=== PATIENT | female | born 1950 | race Caucasian/White ===

== ENCOUNTER 2020-05-24 15:04 | Outpatient (CLI) | payer OTHER, SELFPAY ==
--- NOTE | ~2020-05-24 | CT_ITS ---
EXAMINATION: CT sinus wo con DATE: 05/24/2020 15:30 INDICATION: Chronic sinusitis TECHNIQUE: Computed tomography (CT) of the paranasal sinuses was performed without contrast. Iterativ e reconstruction technique was employed. Exam dose: 282.50 mGy-cm total exam DLP. COMPARISON: 10/13/2011 CT sinuses FINDINGS: There is postoperative change including bilateral nasal antral windows and resection of the uncinate processes and bilateral ethmoidectomies. There is focal areas of mild bilateral frontal mucoperiosteal soft tissue thickening. There is severe mucoperiosteal thickening of both maxillary sinuses. There is moderately severe mucop eriosteal the right sphenoid sinus and mild patchy mucoperiosteal thickening of the left sphenoid sin us. The mastoid air cells are normally developed and aerated. Middle and inner ear apparatus appear unrem arkable. IMPRESSION: Bilateral nasal antral windows and bilateral ethmoidectomies Severe bilateral maxillary sinusitis, moderately severe right sphenoid sinus; mild bilateral frontal and left sphenoid sinusitis Reviewed, dictated and finalized at Location A. Reviewed, dictated and finalized at location A. IMPRESSION: Bilateral nasal antral windows and bilateral ethmoidectomies Severe bilateral maxillary sinusitis, moderately severe right sphenoid sinus; m ild bilateral frontal and left sphenoid sinusitis
== END 2020-05-24 15:05 | disposition home or self-care (01) ==
PROVIDERS: PCP Family Medicine; Visit Provider Family Medicine
DX: J32.9 Chronic sinusitis, unspecified (principal)
CPT/HCPCS: 70486

== ENCOUNTER 2021-04-03 09:11 | Outpatient (CLI) | payer OTHER, SELFPAY ==
--- NOTE | ~2021-04-03 | US_ITS ---
EXAMINATION: US venous doppler UE RT DATE: 04/03/2021 10:01 INDICATION: Right upper extremity pain TECHNIQUE: Grayscale ultrasound images without and with compression and Doppler ultrasound images of the right upper extremity veins were obtained. COMPARISON: None. FINDINGS: The right internal jugular vein, subclavian vein, axillary vein, brachial veins, basilic vein, cephal ic vein, radial vein, and ulnar vein are patent. IMPRESSION: 1. No evidence of deep venous thrombosis. Reviewed, dictated and finalized at location A.
--- NOTE | ~2021-04-03 | XR_ITS ---
EXAMINATION: XR wrist RT 2V EXAM DATE: 04/03/2021 09:36 INDICATION: M25.539 - Pain in unspecified wrist. History rheumatoid arthritis. TECHNIQUE: Frontal and lateral projections of the right wrist. Correlation is made to right forearm 04/18/2019. FINDINGS: Interval development of ulnar styloid erosion. Lunate erosion unchanged. There is moderate triscaphe and severe 1st carpometacarpal joint arthritis. Tiny erosion at the base of the 5th metaca rpal bone. Appearance to these erosions could indicate rheumatoid as underlying etiology. Scapholunat e joint space is maintained. Mild arthritis at the radioscaphoid articulation. Triangular fibrocartilage calcification. Chondrocalcinosis can be an age related finding, but with ot her possible etiologies including CPPD, parathyroid disorders, hemochromatosis, gout. There are no ac cantwell fractures identified. IMPRESSION: 1. Scattered erosions could be rheumatoid related etiology. 2. 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 3. Chondrocalcinosis. Reviewed, dictated and finalized at location B.
== END 2021-04-03 09:12 | disposition home or self-care (01) ==
PROVIDERS: PCP Family Medicine; Referring Provider Internal Medicine; Visit Provider Nurse Practitioner Family
DX: Z86.72 Personal history of thrombophlebitis (principal); M19.031 Primary osteoarthritis, right wrist
CPT/HCPCS: 73100; 93971

== ENCOUNTER → 2021-11-11 12:04 | Outpatient (CLI) | payer OTHER, SELFPAY ==
--- NOTE | ~2021-11-11 | XR_ITS ---
EXAMINATION: XR heel LT min 2V DATE: 11/11/2021 12:31 INDICATION: Left heel pain. TECHNIQUE: 2 views of left calcaneus were obtained. COMPARISON: Left foot radiographs 07/15/2019 FINDINGS: Bone alignment is normal. No fracture. There is mild midfoot osteoarthritis. There are enth esophytes at the posterior and plantar aspects of calcaneal tuberosity. IMPRESSION: 1. No fracture. Reviewed, dictated and finalized at location A. TANNER IMPRESSION: 1. No fracture.
--- NOTE | ~2021-11-11 | XR_ITS ---
XR lumbar spine 2-3V 11/11/2021 12:31 Indication: Low back pain Procedure: 3 views lumbar spine Comparison: No prior studies for comparison. Findings: There are spinal fusion changes at L2-S1. There are laminectomy changes at these levels. Pe dicle screws appear to be intact. There is lateral bone graft mass at the fusion levels. Sacral alex en are symmetric. There is levoscoliosis. Osteopenia. No acute fracture or traumatic malalignment. Impression: 1: No acute abnormality of the lumbar spine. 2: Moderate lumbar spondylosis with fusion at L2-S1 and levoscoliosis. Reviewed, dictated and finalized at location A. ER AISLE CASHIER Impression: 1: No acute abnormality of the lumbar spine. 2: Moderate lumbar spondylosis with fusion at L2-S1 and levoscoliosis.
== END ==
PROVIDERS: PCP Family Medicine; Visit Provider Nurse Practitioner Family
DX: M54.50 Low back pain, unspecified (principal); M79.672 Pain in left foot; M47.896 Other spondylosis, lumbar region; Z98.1 Arthrodesis status
CPT/HCPCS: 72100; 73650

== ENCOUNTER 2022-01-16 14:09 | Emergency (ER) | payer OTHER, SELFPAY ==
--- NOTE | ~2022-01-16 | XR_ITS ---
EXAMINATION: XR tibia fibula LT 2V INDICATION: Left leg pain TECHNIQUE: Two views of the left leg are obtained. COMPARISON: None available FINDINGS: Bone alignment is normal. There is no fracture. There are changes of total knee arthroplast y. Anterior soft tissue swelling is seen over the proximal leg. Calcified atherosclerosis is noted. IMPRESSION: 1. Anterior soft tissue swelling of the leg without acute osseous abnormality. Reviewed, dictated and finalized at location A. [employer]
[2022-01-16 14:15] VITALS: BP 136/77; PULSE 91; RESP 16; TEMP 36.8; O2SAT 97
--- NOTE | 2022-01-16 14:55 | ED.SKABFB ---
HPI - Skin/Abscess/Foreign Bdy General Chief complaint: Extremity Injury, Lower Stated complaint: FALL/L LEG INJURY Time Seen by Provider: 01/16/22 14:28 Source: patient and RN notes reviewed Mode of arrival: ambulatory Limitations: no limitations History of Present Illness HPI narrative: Patient presents today complaining of left lower leg injury and lump to her lower leg after falling 2 weeks ago and striking her leg. States the area is painful and she has radiation of the pain down to her ankle. Denies numbness or tingling. She has tried ice for pain with some relief. Pain increases with touching. Related Data Home Medications Medication Instructions Recorded Confirmed bimatoprost 0.01 % eye drops 1 drop EACH EYE QPM 10/17/19 12/19/21 fluticasone 250 mcg-salmeterol 50 1 inhalation INHALATION BID 10/17/19 12/19/21 mcg/dose blistr powdr for inhalation multivitamin 1 cap PO DAILY 04/08/20 12/19/21 cholecalciferol (vitamin D3) 125 125 mcg PO DAILY 12/30/20 12/19/21 mcg (5,000 unit) capsule tramadol 50 mg tablet 50 mg PO Q6H PRN 04/01/21 12/19/21 metoprolol tartrate 50 mg tablet 50 mg PO BID 11/11/21 12/19/21 acetaminophen 500 mg tablet 1,000 mg PO BID PRN tablet 12/19/21 12/19/21 prednisone 10 mg tablet 5 mg PO DAILY tablet 12/19/21 12/19/21 Allergies Allergy/AdvReac Type Severity Reaction Status Date / Time hydrochlorothiazide Allergy Unknown Nausea Verified 12/19/21 10:06 Penicillins Allergy Unknown Tongue Verified 12/19/21 10:06 swelling triamterene Allergy Unknown Nausea Verified 12/19/21 10:06 Review of Systems Review of Systems: CONSTITUTIONAL: Denies body aches, fever, chills, or sweats. EYES: Denies visual changes, redness, or discharge. ENT: Denies rhinorrhea, congestion, sore throat, or otalgia. CARDIOVASCULAR: Denies chest pain, palpitations, or edema. RESPIRATORY: Denies cough or dyspnea. GASTROINTESTINAL: Denies abdominal pain, nausea, vomiting, or diarrhea. GENITOURINARY: Denies dysuria or hematuria. SKIN: Denies rash, itching, or wounds.+ Lump to left lower leg MUSCULOSKELETAL: Denies back pain, joint pain, or myalgia. NEUROLOGIC: Denies headache, numbness, tingling, or weakness. PSYCH: Denies depression or anxiety. [facility] Past Medical History Medical History Asthma, cough variant Atrial fibrillation Essential (primary) hypertension GERD without esophagitis Glaucoma both eyes, open angle Hyperlipidemia Left carpal tunnel syndrome Lumbar disc disease with radiculopathy Neuropathy Pulmonary nodule less than 6 cm determined by computed tomography of lung Rheumatoid arthritis Seizure disorder Surgical History Surgical History History of bilateral knee replacement History of left hip replacement (~06/2020) S/P cervical spinal fusion Family History Family History Father Hypertension, Onset Age: 76 Family history of heart disease in male family member before age 55, Onset Age: 76 Patient's father is , Onset Age: 76 Mother Hypertension, Onset Age: 82 Family history of renal failure, Onset Age: 82 Family history of heart disease in male family member before age 55, Onset Age: 82 Patient's mother is , Onset Age: 82 Sibling Hypertension Asthma Family history of diabetes mellitus in first degree relative Family history of heart disease in male family member before age 55 Grandparent Hypertension Cerebrovascular accident Family history of heart disease in male family member before age 55 Diabetes mellitus Other Olecranon bursitis of right elbow Social History Social History Smoking status: Never smoker Alcohol intake: current Comments At time of signature, I have reviewed a
== END 2022-01-16 15:02 | disposition home or self-care (01) ==
PROVIDERS: Emergency Provider Nurse Practitioner; PCP Family Medicine
DX: S80.12XA Contusion of left lower leg, initial encounter (principal); W19.XXXA Unspecified fall, initial encounter; J45.909 Unspecified asthma, uncomplicated; I48.91 Unspecified atrial fibrillation; I10 Essential (primary) hypertension; K21.9 Gastro-esophageal reflux disease without esophagitis; H40.9 Unspecified glaucoma; M51.36 Other intervertebral disc degeneration, lumbar region; M06.9 Rheumatoid arthritis, unspecified; G62.9 Polyneuropathy, unspecified; Z96.653 Presence of artificial knee joint, bilateral; Z96.641 Presence of right artificial hip joint
CPT/HCPCS: 73590; 99213; G0463

== ENCOUNTER → 2022-05-11 13:13 | Outpatient (CLI) | payer OTHER, SELFPAY ==
--- NOTE | ~2022-05-11 | DEXA_ITS ---
Bone Density Report Name: BENNETT CHUNG Age: 72 Sex: Female Ethnicity: White Date of : 1950 Indication: postmenopausal; screening for osteoporosis; height loss; history of glucocorticoids; seizure disorder; asthma or emphysema; rheumatoid arthritis; Referring Provider: Hallie Rand Study: Bone densitometry was performed. Exam Date: May 11, 2022 Accession number: [id number] Bone Density: Region BMD T-score Z-score Classification Femoral Neck (Right) 0.890 0.4 2.3 Normal Total Hip (Right) 0.999 0.5 2.1 Normal World Health Organization criteria for BMD impression classify patients as: Normal (T-score at or above -1.0), Osteopenia (T-score between -1.0 and -2.5), or Osteoporosis (T-score at or below -2.5). 10-year Fracture Risk: FRAX not reported because: All T-scores for Spine Total, Hip Total, Femoral Neck at or above -1.0 Previous Exams: Region Exam Age BMD T-score BMD Change BMD Change Date g/cm2 vs Baseline vs Previous Total Hip(Right) 05/11/2022 72 0.999 0.5 -0.049* -0.049* 07/22/2018 68 1.049 0.9 *Denotes significance at 95% confidence level, LSC for Total Hip = 0.027 g/cm2 Clinical Information Provided by Patient: Has taken Glucocorticoids Has rheumatoid arthritis Has used the following medications: Vitamin D, MTV Has the following medical conditions: Any Seizure Disorders, Asthma or Emphysema Patient maximum height was 66.0 Menopause Age: 49 No regular weight bearing exercise Drinks caffeinated beverages Onset of menses at age 11 Number of children 3 Impression: The patient has normal bone mass. The patient has risk factors, including: history of glucocorticoid therapy. The BMD for the Total Hip(Right) decreased, changing by -0.049 since the last DXA exam. Discussion: LOW RISK OF FRACTURE; BONE DENSITY IS WELL ABOVE THE MINIMUM DESIRABLE LEVEL AND ABOVE AVERAGE FOR AGE AND SEX AT ALL SKELETAL SITES TESTED. This person's bone density is above expected limits for age and sex. This is rarely clinically significant, but should be pursued if there are significant musculoskeletal complaints. The patient should follow a healthful lifestyle (good nutrition with adequate calcium and vitamin D, and appropriate weight-bearing exercise). Follow-Up: Consider repeating this study in 3 to 4 years to reassess this patient's status, or sooner if there is some new clinical indication. Reported by: MISA on 05/11/2022 1:41:00 PM. Reviewed, dictated and finalized at location AJessica TORRES
--- NOTE | ~2022-05-11 | MM_ITS ---
EXAMINATION: MM screening julisa BI w gallo HISTORY: Screening TECHNIQUE: Craniocaudal and mediolateral oblique 3-D tomosynthesis images were obtained and synthetic 2-D images were generated. CAD analysis was submitted and interpreted. COMPARISON: Comparison to multiple prior studies sequentially, with oldest reviewed study dated 05/2013. BREAST PARENCHYMAL COMPOSITION: The breasts are heterogenously dense, which may obscure small masses FINDINGS: There is no evidence of suspicious mass, calcification, or architectural distortion to sugg est malignancy in either breast. There has been no suspicious interval change. IMPRESSION: 1. No mammographic evidence of malignancy. 2. Recommend routine screening mammography in one year. BI-RADS Category 1: Negative Reviewed, dictated and finalized at location A.
== END ==
PROVIDERS: PCP Family Medicine; Visit Provider Nurse Practitioner Family
DX: Z12.31 Encounter for screening mammogram for malignant neoplasm of breast (principal); Z78.0 Asymptomatic menopausal state
CPT/HCPCS: 77063; 77067; 77080

== ENCOUNTER 2022-08-07 12:54 | Emergency (ER) | payer OTHER, SELFPAY ==
--- NOTE | 2022-08-07 12:59 | ED.UPPEXIN ---
HPI - Extremity Injury (Upper) General Chief Complaint: Extremity Injury, Upper Stated Complaint: left hand injury Time Seen by Provider: 08/07/22 12:59 Source: patient and RN notes reviewed History of Present Illness HPI narrative: Patient is a 72-year-old female who presents the urgent care with complaints of left hand pain. Patient states that the pain only occurs when she grasps and sometimes feels a sharp shooting pain through the thumb. Patient denies of any known injury or fall to the wrist. States that it started last night when she grabbed a handrail at a volleyball game. Patient has been taking Tylenol. Patient has chronic history of rheumatoid arthritis and does take turmeric injections with her last one being past Wednesday. No other acute complaints. No acute distress noted. Patient aware of the plan of care. Some parts of this dictation were generated by voice recognition software and may contain typographical and/or grammatical inaccuracies. Related Data Home Medications Medication Instructions Recorded Confirmed multivitamin 1 cap PO DAILY 04/08/20 08/07/22 cholecalciferol (vitamin D3) 125 125 mcg PO DAILY 12/30/20 08/07/22 mcg (5,000 unit) capsule tramadol 50 mg tablet 50 mg PO Q6H PRN Pain (Scale Score 04/01/21 08/07/22 4-6) metoprolol tartrate 50 mg tablet 50 mg PO BID 11/11/21 08/07/22 acetaminophen 500 mg tablet 1,000 mg PO BID PRN Pain (Scale 12/19/21 08/07/22 (Tylenol Extra Strength) Score 1-3) leflunomide 20 mg tablet 20 mg PO .QOD 02/12/22 08/07/22 montelukast 10 mg tablet 10 mg PO QHS 02/12/22 08/07/22 adalimumab 40 mg/0.8 mL 40 mg subcut [id number] 08/07/22 08/07/22 subcutaneous pen kit (Humira Pen) fluticasone 250 mcg-salmeterol 50 2 inh inhalation PRN PRN Shortness 08/07/22 08/07/22 mcg/dose blistr powdr for Of Breath inhalation (Wixela Inhub) prednisone 5 mg tablet 10 mg PO BID 08/07/22 08/07/22 Allergies Allergy/AdvReac Type Severity Reaction Status Date / Time hydrochlorothiazide Allergy Unknown Nausea Verified 08/07/22 12:57 Penicillins Allergy Unknown Tongue Verified 08/07/22 12:57 swelling triamterene Allergy Unknown Nausea Verified 08/07/22 12:57 Review of Systems Review of Systems: CONSTITUTIONAL: Denies fever, chills, or sweats. EYES: Denies visual changes, redness, or discharge. ENT: Denies rhinorrhea, congestion, sore throat, or otalgia. CARDIOVASCULAR: Denies chest pain, palpitations, or edema. RESPIRATORY: Denies cough or dyspnea. GASTROINTESTINAL: Denies abdominal pain, nausea, vomiting, or diarrhea. GENITOURINARY: Denies dysuria or hematuria. SKIN: Denies rash or itching. MUSCULOSKELETAL: Reports of left wrist pain NEUROLOGIC: Denies headache, numbness, or weakness. All other systems reviewed are negative, except as documented in HPI. [facility] Past Medical History Medical History (Updated 08/07/22 @ 13:18 by CONRADO Gil) Asthma, cough variant Atrial fibrillation Essential (primary) hypertension GERD without esophagitis Glaucoma both eyes, open angle Hyperlipidemia Left carpal tunnel syndrome Lumbar disc disease with radiculopathy Neuropathy Psoriasis Pulmonary nodule less than 6 cm determined by computed tomography of lung Rheumatoid arthritis Seizure disorder Surgical History Surgical History History of ankle surgery History of bilateral knee replacement History of left hip replacement (~06/2020) S/P cervical spinal fusion Family History Family History Father Hypertension, Onset Age: 76 Family history of heart disease in male family member before age 55, Onset Age: 76 Patient's father is , Onset Age: 76 Mother Hypertension, Onset Age: 82 Family history of renal failure, Onset Age: 82 Family history of heart disease in male family member before age 55, Onset Age: 82 Patient's mother i
[2022-08-07 13:06] VITALS: BP 127/89; PULSE 78; RESP 16; TEMP 37.1; O2SAT 98
[2022-08-07 13:13] VITALS: BP 127/89; PULSE 78; RESP 16; TEMP 37.1; O2SAT 98
== END 2022-08-07 13:22 | disposition home or self-care (01) ==
PROVIDERS: Emergency Provider Nurse Practitioner Family; PCP Family Medicine
DX: M25.532 Pain in left wrist (principal); M06.9 Rheumatoid arthritis, unspecified; I48.91 Unspecified atrial fibrillation; I10 Essential (primary) hypertension; K21.9 Gastro-esophageal reflux disease without esophagitis; R78.5 Finding of other psychotropic drug in blood; G62.9 Polyneuropathy, unspecified; Z96.653 Presence of artificial knee joint, bilateral; Z96.642 Presence of left artificial hip joint
CPT/HCPCS: 99213; G0463

== ENCOUNTER → 2022-08-10 11:47 | Outpatient (CLI) | payer OTHER, SELFPAY ==
--- NOTE | ~2022-08-10 | XR_ITS ---
EXAM: XR hand LT min 3V DATE: 08/10/2022 11:59 HISTORY: M79.645 - Pain in left finger(s) Left thumb carpal tunnel . COMPARISON: None available. FINDINGS: Decreased mineralization. No fracture or dislocation. No lytic or blastic lesion. Chondroc alcinosis in multiple joints. Severe narrowing and osteophytosis at the trapeziometacarpal joint. Mil d-moderate narrowing and osteophytosis at all interphalangeal joints. Radiocarpal subchondral cysts. No erosion or periosteal change. Soft tissues within normal limits. IMPRESSION: Severe arthritic change at the left trapeziometacarpal joint. Moderate arthritic changes in the thumb and finger joints. Chondrocalcinosis, as can be seen with calcium pyrophosphate depositi on disorder. Reviewed, dictated and finalized at location K. IMPRESSION: Severe arthritic change at the left trapeziometacarpal joint. Moder ate arthritic changes in the thumb and finger joints. Chondrocalcinosis, as can be seen with calcium pyrophosphate deposition disorder.
== END ==
PROVIDERS: PCP Nurse Practitioner Family; Visit Provider Nurse Practitioner Family
DX: M19.042 Primary osteoarthritis, left hand (principal)
CPT/HCPCS: 73130

== ENCOUNTER 2023-06-28 13:39 | Outpatient (CLI) | payer OTHER, SELFPAY ==
--- NOTE | ~2023-06-28 | US_ITS ---
EXAMINATION: US venous doppler UE RT DATE: 06/28/2023 14:38 INDICATION: Right upper limb pain. TECHNIQUE: Grayscale ultrasound images without and with compression and Doppler ultrasound images of the right upper extremity veins were obtained. COMPARISON: Ultrasound 04/03/2021 FINDINGS: The visualized portions of the right internal jugular vein, subclavian vein, axillary vein, brachial veins, basilic vein, radial vein, and ulnar vein are patent. There is a peripherally inserted central venous catheter in the right cephalic vein. IMPRESSION: 1. No deep venous thrombosis. Reviewed, dictated and finalized at location A.
== END 2023-06-28 13:40 | disposition home or self-care (01) ==
PROVIDERS: PCP Family Medicine
DX: M79.601 Pain in right arm (principal)
CPT/HCPCS: 93971

== ENCOUNTER 2023-10-14 17:37 | Emergency (ER) | payer OTHER, SELFPAY ==
[2023-10-14] VITALS (19 sets, daily range): BP systolic 97–140; BP diastolic 50–73; PULSE 62–142; RESP 12–20; O2SAT 96–98
[2023-10-14 17:54] LABS: Basophils Absolute Auto 0.1 K/mm3 (0.0-0.1); Basophils Percent Auto 0.5 % (0.2-1.2); Eosinophils Absolute Auto 0.1 K/mm3 (0-0.3); Eosinophils Percent Auto 0.4 % (0-4.4); Hematocrit 37.5 % (37.0-47.0); Hemoglobin 11.9 g/dL (12.0-15.0); Immature Granulocyte Absolute 0.07 K/mm3 (0.00-0.031); Immature Granulocyte Percent A 0.6 % (0-0.5); Lymphocytes Absolute Auto 1.26 K/mm3 (0.9-3.2); Mean Corpuscular HGB Conc 31.7 g/dl (32-36); Mean Corpuscular Hemoglobin 28.1 pg (26-34); Mean Corpuscular Volume 88.7 fl (80-100); Mean Platelet Volume 8.8 fl (7.4-10.4); Monocytes Absolute Auto 1.1 K/mm3 (0.1-0.6); Monocytes Percent Auto 8.7 % (2.6-8.5); Neutrophils Absolute Auto 10.1 K/mm3 (1.3-6.7); Neutrophils Percent Auto 79.8 % (45.5-73.1); Platelet Count Result 295 k/mm3 (150-375); Red Blood Count 4.23 M/mm3 (4.2-5.4); Red Cell Distribution Width 18.6 % (11.5-14.5); White Blood Count 12.7 K/mm3 (4.5-10.0)
[2023-10-14 18:08] LABS: Alanine Aminotransferase 15 U/L (6-35); Albumin Level 3.3 g/dL (3.5-5.1); Alkaline Phosphatase 266 U/L (38-126); Anion Gap 11 mmol/L (8-16); Aspartate Amino Transferase 28 U/L (14-36); Bilirubin,Total 0.6 mg/dL (0.2-1.3); Blood Urea Nitrogen 27 mg/dL (7-17); Calcium 9.1 mg/dL (8.4-10.2); Carbon Dioxide 24 mmol/L (22-30); Chloride 101 mmol/L (98-107); Estimated CRCL calculation 62 ml/min; Estimated Glomerular Filt Rate > 60; Glucose 110 mg/dL (65-110); Lipase 42 U/L (23-300); Sodium 136 mmol/L (137-145)
[2023-10-14] MEDS: SODIUM CHLORIDE 0.9% IV 2,000 ML 999 ML IV CONT (19:53)
[2023-10-14] MEDS: ONDANSETRON INJ 4 MG/2 ML VIAL IV PUSH (19:53)
--- NOTE | 2023-10-14 20:26 | ED.NAVMDI ---
HPI - Nausea/Vomiting/Diarrhea General Chief complaint: Nausea/Vomiting/Diarrhea Stated complaint: N/V weakness yest Time Seen by Provider: 10/14/23 19:12 History of Present Illness HPI Narrative: This is a 73-year-old female, with history of back surgeries, 1 month and 3 weeks ago, who presents emergency department with multiple episodes of diarrhea and nonbloody vomiting with lightheadedness. Patient past day and a half, she has had nonbloody vomiting and diarrhea. This is associated with nausea, though no fevers or known sick contacts. Today she felt lightheaded, though denies chest pain or shortness of breath. She states she is overall recovering well from her back surgery. Related Data Home Medications Medication Instructions Recorded Confirmed multivitamin 1 cap PO DAILY 04/08/20 10/06/23 metoprolol tartrate 50 mg tablet 50 mg PO BID 11/11/21 10/06/23 fluticasone 250 mcg-salmeterol 50 2 inh inhalation PRN PRN Shortness 08/07/22 10/06/23 mcg/dose blistr powdr for Of Breath inhalation (Wixela Inhub) prednisone 5 mg tablet 10 mg PO BID PRN Pain 08/07/22 10/06/23 diphenhydramine HCl 25 mg tablet 25 mg PO QHS PRN 12/01/22 10/06/23 (Benadryl Allergy) acetaminophen 325 mg capsule 325 mg PO Q6H PRN 07/05/23 10/06/23 (Tylenol) bimatoprost 0.01 % eye drops drp EACH EYE QPM 07/05/23 10/06/23 (Lumigan) oxycodone 10 mg tablet mg PO PRN 08/23/23 10/06/23 baclofen 5 mg tablet mg PO 10/06/23 10/06/23 cholecalciferol (vitamin D3) 25 PO 10/06/23 10/06/23 mcg (1,000 unit) tablet cyclobenzaprine 10 mg tablet mg PO 10/06/23 10/06/23 hydroxyzine HCl 25 mg tablet mg PO 10/06/23 10/06/23 Allergies Allergy/AdvReac Type Severity Reaction Status Date / Time hydrochlorothiazide Allergy Unknown Nausea Verified 10/14/23 17:45 Penicillins Allergy Unknown Tongue Verified 10/14/23 17:45 swelling triamterene Allergy Unknown Nausea Verified 10/14/23 17:45 Review of Systems Review of Systems: CONSTITUTIONAL: Denies fever, chills, or sweats. CARDIOVASCULAR: Denies chest pain, palpitations, or edema. RESPIRATORY: Denies cough or dyspnea. GASTROINTESTINAL: Nonbloody vomiting and diarrhea, nausea denies abdominal pain GENITOURINARY: Denies dysuria or hematuria. SKIN: Denies rash or itching. MUSCULOSKELETAL: Denies back pain, joint pain, or myalgia. NEUROLOGIC: Denies headache, numbness, dizziness, or weakness. PSYCHIATRIC: Denies anxiety or depression. [facility] Past Medical History Medical History Asthma, cough variant Atrial fibrillation Essential (primary) hypertension GERD without esophagitis Glaucoma both eyes, open angle Hyperlipidemia Left carpal tunnel syndrome Lumbar disc disease with radiculopathy Neuropathy Psoriasis Pulmonary nodule less than 6 cm determined by computed tomography of lung Rheumatoid arthritis Seizure disorder Surgical follow-up care Surgical History Surgical History H/O spinal fusion C2-T2 posterior instrumented spinal fusion; C3 posterior column osteotomy; C5 &C6 Laminectomy 05/04/23 [facility] History of ankle surgery History of bilateral knee replacement History of left hip replacement (~06/2020) S/P cervical spinal fusion Family History Family History Father Hypertension, Onset Age: 76 Family history of heart disease in male family member before age 55, Onset Age: 76 Patient's father is , Onset Age: 76 Mother Hypertension, Onset Age: 82 Family history of renal failure, Onset Age: 82 Family history of heart disease in male family member before age 55, Onset Age: 82 Patient's mother is , Onset Age: 82 Sibling Hypertension Asthma Family history of diabetes mellitus in first degree relative Family history of heart disease in male family member
[2023-10-14 22:10] LABS: Appearance Urine Clear (Clear); Bacteria Urine None Seen /hpf; Bilirubin Urine Negative (Negative); Blood Urine 1+ (Negative); Color Urine Yellow (Yellow); Glucose Urine UA Negative (Negative); Ketones Urine 1+ mg/dL (Negative); Leukocyte Esterase Ur Negative LEU/UL (Negative); Nitrate Urine Negative (Negative); Non Pathogenic Casts 0-2; Protein Urine Trace mg/dL (Negative); Squamous Epithelial Cell Urine None seen /hpf (Few); Urobilinogen Urine 0.2 mg/dL (<2.0); WBC Urine 0-5 /hpf; pH Urine 5.5 (5.0-9.0)
[2023-10-14 22:14] LABS: Add Urine Microscopic? YES
--- NOTE | 2023-10-15 15:42 | PC.NURSE ---
pt had script for Zofran called in by this resume writer given verbal from dr Bee
== END 2023-10-14 23:35 | disposition home or self-care (01) ==
PROVIDERS: Emergency Medicine; Emergency Provider Preventive Medicine Aerospace Medicine; PCP Family Medicine
DX: K52.9 Noninfective gastroenteritis and colitis, unspecified (principal); J45.909 Unspecified asthma, uncomplicated; E78.5 Hyperlipidemia, unspecified; I10 Essential (primary) hypertension; I48.91 Unspecified atrial fibrillation; G40.909 Epilepsy, unspecified, not intractable, without status epilepticus; H40.9 Unspecified glaucoma; G62.9 Polyneuropathy, unspecified; M06.9 Rheumatoid arthritis, unspecified; Z98.1 Arthrodesis status; Z96.653 Presence of artificial knee joint, bilateral; Z96.642 Presence of left artificial hip joint
CPT/HCPCS: 36415; 80053; 81001; 83690; 85025; 96361; 96374; 99284; J2405; J7030

== ENCOUNTER 2023-10-19 11:32 | Observation (INO) | payer OTHER, SELFPAY ==
[2023-10-19] VITALS (36 sets, daily range): BP systolic 108–134; BP diastolic 63–90; PULSE 93–124; RESP 13–20; TEMP 36.3–36.6; O2SAT 94–100; BMI 28.3
--- NOTE | ~2023-10-19 | XR_ITS ---
EXAMINATION: XR chest 2V DATE: 10/19/2023 14:08 INDICATION: Near syncope. TECHNIQUE: Frontal and lateral views of the chest were obtained. COMPARISON: Chest 2 views 09/28/2013 FINDINGS: There is no pneumonia, pleural effusion, or pneumothorax. The heart size is normal. There a re changes of posterior fusion procedures in the cervical, thoracic, and lumbar spine. There are marks ges of anterior fusion procedures in cervical and lumbar spine. IMPRESSION: 1. No acute cardiopulmonary disease. Reviewed, dictated and finalized at location E. AULIC BULL RIVETER OPERATOR
--- NOTE | 2023-10-19 11:37 | ECG_ITS ---
Measurements Intervals [place] Rate: 99 P: 30 GA: 168 QRS: -9 QRSD: 94 T: 16 QT: 376 QTc: 483 Interpretive Statements SINUS RHYTHM FREQUENT VENTRICULAR PREMATURE COMPLEXES LOW QRS VOLTAGE IN PRECORDIAL LEADS BORDERLINE R WAVE PROGRESSION, ANTERIOR LEADS INFERIOR INFARCT, AGE INDETERMINATE BORDERLINE ST-T WAVE ABNORMALITY- HIGH LATERAL LEADS BASELINE ARTIFACT- I, III, AVR, AVL, AVF ABNORMAL ECG NO PREVIOUS ECG AVAILABLE FOR COMPARISON Electronically Signed On 10-19-2023 13:49:05 DIRECTOR SOCIAL by Scott Rae D.O.
[2023-10-19 12:01] LABS: Basophils Percent Auto 0.2 % (0.2-1.2); Eosinophils Percent Auto 0.2 % (0-4.4); Hematocrit 36.9 % (37.0-47.0); Hemoglobin 11.7 g/dL (12.0-15.0); Immature Granulocyte Absolute 0.04 K/mm3 (0.00-0.031); Immature Granulocyte Percent A 0.3 % (0-0.5); Lymphocytes Absolute Auto 1.35 K/mm3 (0.9-3.2); Lymphocytes Percent Auto 11.1 % (18.3-44.2); Mean Corpuscular HGB Conc 31.7 g/dl (32-36); Mean Corpuscular Hemoglobin 28.3 pg (26-34); Mean Corpuscular Volume 89.1 fl (80-100); Mean Platelet Volume 9.2 fl (7.4-10.4); Monocytes Percent Auto 7.9 % (2.6-8.5); Neutrophils Absolute Auto 9.8 K/mm3 (1.3-6.7); Neutrophils Percent Auto 80.3 % (45.5-73.1); Platelet Count Result 199 k/mm3 (150-375); Red Blood Count 4.14 M/mm3 (4.2-5.4); Red Cell Distribution Width 18.8 % (11.5-14.5); White Blood Count 12.2 K/mm3 (4.5-10.0)
--- NOTE | 2023-10-19 12:07 | ED.SYNCOPE ---
HPI - Syncope General Chief Complaint: Syncope Stated Complaint: near syncope Time Seen by Provider: 10/19/23 11:58 Source: patient and family History of Present Illness HPI narrative: This is a 73 year old with a history of cough variant ashtma who presents with near syncope. She presented to the emergency department last week for similar, though had previously had diarrhea. This has since resolved. She has been vomiting since last night though states only phlegm comes up. Denies hematemesis. Not on anticoagulation as she states she was told she does not have atrial fibrillation but rather has a history of PVCs. For this, she is on metoprolol but has not had to take it in several days given her blood pressure has been at holding parameters. Previously had hypertension but not lately. She notes that she becomes very weak/lightheaded with standing. She had extensive back surgery in mid August for which she was supposed to get her 66 sutures removed tomorrow in outpatient clinic. Never smoked. Mother and father had MIs but not before age 65. No previous ND, PCI/CABG, CVA/TIA, or PAD. She states her legs feel weak and she becomes dizzy. She has been ambulating with a walker since back surgery. Denies any fevers. Her near syncope only occurs with position changes (from supine to seated or seated to standing). If she is supine she has not symptoms. Denies chest pain or SOB. Robotic Technician Dr Geiger. Related Data Home Medications Medication Instructions Recorded Confirmed multivitamin 1 cap PO DAILY 04/08/20 10/19/23 fluticasone 250 mcg-salmeterol 50 1 inh inhalation BID PRN Shortness 08/07/22 10/19/23 mcg/dose blistr powdr for Of Breath inhalation (Wixela Inhub) prednisone 5 mg tablet 10 mg PO BID PRN RA exacerbation 08/07/22 10/19/23 diphenhydramine HCl 25 mg tablet 25 mg PO QHS PRN allergies 12/01/22 10/19/23 (Benadryl Allergy) acetaminophen 325 mg capsule 325 mg PO Q6H PRN RA exacerbation 07/05/23 10/19/23 (Tylenol) bimatoprost 0.01 % eye drops 1 drp EACH EYE QPM 07/05/23 10/19/23 (Lumigan) baclofen 5 mg tablet 5 mg PO HS 10/06/23 10/19/23 cholecalciferol (vitamin D3) 25 1,000 unit PO DAILY 10/06/23 10/19/23 mcg (1,000 unit) tablet cyclobenzaprine 10 mg tablet 10 mg PO Q8H PRN Muscle Spasm 10/06/23 10/19/23 hydroxyzine HCl 25 mg tablet 25 mg PO HS PRN allergies 10/06/23 10/19/23 albuterol sulfate 90 mcg/actuation 90 mcg inhalation Q6H PRN 10/19/23 10/19/23 aerosol inhaler Shortness Of Breath bisacodyl 5 mg tablet,delayed 10 mg PO DAILY PRN Constipation 10/19/23 10/19/23 release fluconazole 50 mg tablet 50 mg PO DAILY 10/19/23 10/19/23 ondansetron HCl 4 mg tablet 4 mg PO Q6H PRN Nausea And Vomiting 10/19/23 10/19/23 triamcinolone acetonide 0.1 % 1 applic topical BID PRN psoriasis 10/19/23 10/19/23 topical ointment exacerbation Allergies Allergy/AdvReac Type Severity Reaction Status Date / Time hydrochlorothiazide Allergy Unknown Nausea Verified 10/14/23 17:45 Penicillins Allergy Unknown Tongue Verified 10/14/23 17:45 swelling triamterene Allergy Unknown Nausea Verified 10/14/23 17:45 [facility] Past Medical History Medical History Asthma, cough variant Atrial fibrillation Essential (primary) hypertension GERD without esophagitis Glaucoma both eyes, open angle Hyperlipidemia Left carpal tunnel syndrome Lumbar disc disease with radiculopathy Neuropathy Psoriasis Pulmonary nodule less than 6 cm determined by computed tomography of lung Rheumatoid arthritis Seizure disorder Surgical follow-up care Surgical History Surgical History H/O spinal fusion C2-T2 posterior instrumented spinal fusion; C3 posterior column osteotomy; C5 &C6 Laminectomy 05/04/[address] [facility] History of ankle surgery History of bilateral knee replacement History of left hip replacement (~06/2020) S/P cervical spinal fusio
[2023-10-19 12:13] LABS: Alanine Aminotransferase 17 U/L (6-35); Albumin Level 3.1 g/dL (3.5-5.1); Alkaline Phosphatase 228 U/L (38-126); Anion Gap 11 mmol/L (8-16); Aspartate Amino Transferase 31 U/L (14-36); Bilirubin,Total 0.7 mg/dL (0.2-1.3); Blood Urea Nitrogen 26 mg/dL (7-17); Calcium 8.9 mg/dL (8.4-10.2); Carbon Dioxide 25 mmol/L (22-30); Chloride 100 mmol/L (98-107); Estimated CRCL calculation 63 ml/min; Estimated Glomerular Filt Rate > 60; Glucose 115 mg/dL (65-110); Potassium 3.8 mmol/L (3.4-5.0); Sodium 136 mmol/L (137-145)
[2023-10-19 12:58] LABS: Troponin I 0.448 ng/mL (0.000-0.034)
[2023-10-19 13:11] LABS: Influenza A QL RT-PCR Negative (Negative); Influenza B QL RT-PCR Negative (Negative); RSV RNA, RT-PCR Negative (Negative); SARS-CoV-2 RNA PCR Negative (Negative)
[2023-10-19] MEDS: ONDANSETRON INJ 4 MG/2 ML VIAL IV PUSH ×2 (14:08→18:35)
[2023-10-19] MEDS: ASPIRIN 81 MG CHEWABLE TABLET 324 MG PO (14:08)
[2023-10-19 15:34] LABS: Troponin I 0.318 ng/mL (0.000-0.034)
--- NOTE | 2023-10-19 16:10 | ADMGEN ---
This patient, Ivett Stephens, was admitted to IMU Room 207-01. Patient/family oriented to hospital policies and general routines including ID bracelet, bed and alarms, visiting hours, pain management, procedures, bathroom and other care routines, personal items, smoking policy, room service/diet, and visiting hours. Information on how to activate the Rapid Response Team has been discussed. Patient/Family are encouraged to report perceived risks to care and to ask questions if they do not understand what they are told or what they should do.
--- NOTE | 2023-10-19 16:43 | PC.NURSE ---
Pt has sutures to mid spine form neck to sacrum. Incision site well approximated, dry, no redness or swelling, sutures intact. Reports that sutures were to be removed 1 week ago but patient was sick and had to cancel appointment. Pt is requesting we reach out to surgeons office, Dr. Dangelo Hopper, and speak with Anahi regarding suture removal instructions. Office number is [phone]. Office is closed. Will report to oncoming shift need for follow up.
--- NOTE | 2023-10-19 17:41 | PM.IMHP ---
H&P: HPI History of Present Illness Date/Time: 10/19/23 17:41 Chief Complaint: Nausea and Pre-Syncope Narrative: 73 y/o F presents here with N/V and near syncope with PMH of asthma, AFib, HTN, GERD, psoriasis, RA, seizures, and extensive spinal surgeries (most recent on 09/10 and 09/17). Patient presents here with recurrent nausea and vomiting for the past 3-4 days, 1 episode of diarrhea than constipation. Denies change in stool, blood in stool, and LBM was today - normal consistent, volume and color. The patient was seen on 10/14 for similar symptoms. Was discharged home after rehydration and general improvement. Patient states she felt better for 2-3 days. Then had recurrent symptoms. Reports that she has been unable to eat or drink much over the last few days. States that her blood pressure has been dropping when she changes positions. Has had near syncopal episodes multiple times with 1 episode where she became briefly delirious, but has otherwise not lost consciousness. she currently denies abdominal pain or urinary symptoms such as dysuria, hematuria, frequency. +Decrease in urine OP, now going once per day v 2-3 times per day. She denies chest pain or palpitations. +Mild SOB with near-syncopal episodes that resolves without intervention, believes this may be secondary to reduced use of her Albuterol inhaler - last use yesterday x1. currently denies burning in throat, burning in chest, or regurgitation. +Increase in belching. Also reports that since surgery she has had an alteration in her taste, reports that sweet taste have been more sickly suite and majority of food/drink/water leave a foul aftertaste in her mouth. She also denies numbness or tingling in her lower extremities and has been healing well postop from recent back surgeries in Aug. Report missing follow-up due to the N/V/D and was unable to have her stitches taken out., otherwise incision has been healing well and she has no complaints. Review of Systems Review of Systems: +SOB with near syncopal episodes. +Near-syncope. +Belching. +Alteration in taste. All systems reviewed & are unremarkable except as noted in HPI and below PMFSH Past Medical History Medical History (Updated 10/19/23 @ 20:43 by Nohemi Burk APRN) Asthma, cough variant Atrial fibrillation Essential (primary) hypertension GERD without esophagitis Glaucoma both eyes, open angle Hyperlipidemia Left carpal tunnel syndrome Lumbar disc disease with radiculopathy Neuropathy Psoriasis Pulmonary nodule less than 6 cm determined by computed tomography of lung Rheumatoid arthritis Seizure disorder Surgical follow-up care Surgical History Surgical History (Updated 10/19/23 @ 20:17 by Nohemi Burk APRN) H/O spinal fusion C2-T2 posterior instrumented spinal fusion; C3 posterior column osteotomy; C5 &C6 Laminectomy 05/04/23 [facility] History of ankle surgery History of bilateral knee replacement History of left hip replacement (~06/2020) S/P cervical spinal fusion Family History Family History Father Hypertension, Onset Age: 76 Family history of heart disease in male family member before age 55, Onset Age: 76 Patient's father is , Onset Age: 76 Mother Hypertension, Onset Age: 82 Family history of renal failure, Onset Age: 82 Family history of heart disease in male family member before age 55, Onset Age: 82 Patient's mother is , Onset Age: 82 Sibling Hypertension Asthma Family history of diabetes mellitus in first degree relative Family history of heart disease in male family member before age 55 Grandparent Hypertension Cerebrovascular accident Family history of heart disease in male family member before age 55 Diabetes mellitus Other Olecranon bursitis of right elbow Social History Social History (Updated 10/19/23 @ 20:09 by Nohemi
[2023-10-19] MEDS: LACTATED RINGERS 1,000 ML 999 ML IV CONT (21:41)
[2023-10-19] MEDS: PANTOPRAZOLE SODIUM IV 40 MG VIAL IV PUSH (21:41)
[2023-10-19] MEDS: diphenhydrAMINE HCl INJ 50 MG/ML VIAL 25 MG IV PUSH (21:42)
[2023-10-19] MEDS: PROCHLORPERAZINE EDISYLATE 10 MG/2 ML VIAL IV PUSH (21:42)
[2023-10-19] MEDS: GABAPENTIN 100 MG CAPSULE PO (22:36)
[2023-10-19] MEDS: BACLOFEN 5 MG TABLET PO (22:36)
[2023-10-19] MEDS: PHENYTOIN SODIUM 100 MG EXTENDED RELEASE CAP PO (22:36)
[2023-10-19] MEDS: LATANOPROST 0.005% OP SOLN 2.5 ML BTL 1 DROP EACH EYE (22:36)
[2023-10-19] MEDS: LACTATED RINGERS 1,000 ML 100 ML IV CONT (22:37)
[2023-10-19 23:07] LABS: Troponin I 0.292 ng/mL (0.000-0.034)
[2023-10-20] VITALS (19 sets, daily range): BP systolic 101–142; BP diastolic 52–72; PULSE 89–114; RESP 16–22; TEMP 36.2–36.7; O2SAT 95–100
[2023-10-20 05:19] LABS: Basophils Percent Auto 0.2 % (0.2-1.2); Eosinophils Absolute Auto 0.4 K/mm3 (0-0.3); Eosinophils Percent Auto 4.2 % (0-4.4); Hematocrit 30.9 % (37.0-47.0); Immature Granulocyte Absolute 0.04 K/mm3 (0.00-0.031); Immature Granulocyte Percent A 0.5 % (0-0.5); Lymphocytes Absolute Auto 1.98 K/mm3 (0.9-3.2); Lymphocytes Percent Auto 22.5 % (18.3-44.2); Mean Corpuscular HGB Conc 32.4 g/dl (32-36); Mean Corpuscular Hemoglobin 28.8 pg (26-34); Mean Platelet Volume 9.3 fl (7.4-10.4); Monocytes Absolute Auto 0.8 K/mm3 (0.1-0.6); Monocytes Percent Auto 9.5 % (2.6-8.5); Neutrophils Absolute Auto 5.6 K/mm3 (1.3-6.7); Neutrophils Percent Auto 63.1 % (45.5-73.1); Platelet Count Result 178 k/mm3 (150-375); Red Blood Count 3.47 M/mm3 (4.2-5.4); White Blood Count 8.8 K/mm3 (4.5-10.0)
[2023-10-20 05:40] LABS: Alanine Aminotransferase 13 U/L (6-35); Albumin Level 2.4 g/dL (3.5-5.1); Alkaline Phosphatase 180 U/L (38-126); Anion Gap 7 mmol/L (8-16); Aspartate Amino Transferase 29 U/L (14-36); Bilirubin,Total 0.5 mg/dL (0.2-1.3); Blood Urea Nitrogen 22 mg/dL (7-17); Calcium 8.4 mg/dL (8.4-10.2); Carbon Dioxide 24 mmol/L (22-30); Chloride 105 mmol/L (98-107); Estimated CRCL calculation 73 ml/min; Estimated Glomerular Filt Rate > 60; Glucose 69 mg/dL (65-110); Magnesium 1.9 mg/dL (1.6-2.3); Potassium 3.8 mmol/L (3.4-5.0); Sodium 136 mmol/L (137-145)
[2023-10-20 07:29] LABS: Glucose Point of Care 63 mg/dl (65-105)
[2023-10-20] MEDS: FLUTICASONE/SALMETEROL 115-21 MCG INHALER 1 PUFF 2 PUFF INHALATION ×2 (07:34→20:58)
[2023-10-20] MEDS: DEXTROSE 5% 1,000 ML 1,000 ML 100 ML IV CONT (08:10)
[2023-10-20] MEDS: PROCHLORPERAZINE EDISYLATE 10 MG/2 ML VIAL IV PUSH (08:10)
[2023-10-20] MEDS: GABAPENTIN 100 MG CAPSULE PO ×3 (09:20→17:26)
[2023-10-20] MEDS: MULTIVITAMINS THERAPEUTIC TAB (*BKC) 1 TABLET PO (09:20)
[2023-10-20] MEDS: FLUCONAZOLE 50 MG TABLET PO (09:20)
[2023-10-20] MEDS: ENOXAPARIN 40 MG/0.4 ML SYRINGE SUB-Q (09:20)
[2023-10-20] MEDS: PHENYTOIN SODIUM 100 MG EXTENDED RELEASE CAP PO ×3 (09:20→17:26)
[2023-10-20] MEDS: CHOLECALCIFEROL 1,000 UNITS TABLET 1000 UNITS PO (09:20)
[2023-10-20 09:46] LABS: Glucose Point of Care 78 mg/dl (65-105)
--- NOTE | 2023-10-20 09:51 | PM.CNCAR ---
Assessment and Plan Assessment and plan (1) Elevated troponin: Code(s): R79.89 - Other specified abnormal findings of blood chemistry Status: Acute Assessment and Plan: Troponins are flat. EKG without ischemic changes. No anginal symptoms. This does not appear to be an acute coronary syndrome. No further cardiac workup at this time. (2) Nausea with vomiting: Qualifiers: Vomiting type: unspecified Qualified Code(s): R11.2 - Nausea with vomiting, unspecified Code(s): R11.2 - Nausea with vomiting, unspecified Status: Acute Assessment and Plan: Improving, management as per primary team (3) Near syncope: Code(s): R55 - Syncope and collapse Status: Acute Assessment and Plan: Likely due to orthostasis, improving with IVFs. Continue fluid resuscitation as per primary team. Plan Cardiology will sign off at this time. Please call us back if needed. Patient to follow up with Dr. Geiger. History of Present Illness History of Present Illness Consult date/time: 10/20/23 09:51 Requesting physician: Patti Waters MD Consult reason: Other (Elevated tropoins) Reason For Visit: nstemi Narrative: We are consulted for elevated troponins. This is a 73 year old female with PVCs, hypertension, diastolic dysfunction, asthma, rheumatoid arthritis who follows with Dr. Geiger in the office. She underwent spinal surgeries on 09/10 and 09/17. Patient presented to [place] ER with nausea, vomiting, one episode of diarrhea, orthostatic symptoms. ER workup showed troponin of 0.448, 0.318, 0.292. CXR is without acute findings. EKG shows sinus rhythm with frequent PVCs. She has been started on IVFs for orthostasis and reports that she feels better this morning. Her nausea has improved. She denies any recent or active chest pain, shortness of breath, or other anginal symptoms. Review of Systems Review of Systems: All systems reviewed & are unremarkable except as noted in HPI and below (HPI) [facility] Past Medical History Medical History Asthma, cough variant Atrial fibrillation Essential (primary) hypertension GERD without esophagitis Glaucoma both eyes, open angle Hyperlipidemia Left carpal tunnel syndrome Lumbar disc disease with radiculopathy Neuropathy Psoriasis Pulmonary nodule less than 6 cm determined by computed tomography of lung Rheumatoid arthritis Seizure disorder Surgical follow-up care Surgical History Surgical History H/O spinal fusion C2-T2 posterior instrumented spinal fusion; C3 posterior column osteotomy; C5 &C6 Laminectomy 05/04/23 [facility] History of ankle surgery History of bilateral knee replacement History of left hip replacement (~06/2020) S/P cervical spinal fusion Family History Family History Father Hypertension, Onset Age: 76 Family history of heart disease in male family member before age 55, Onset Age: 76 Patient's father is , Onset Age: 76 Mother Hypertension, Onset Age: 82 Family history of renal failure, Onset Age: 82 Family history of heart disease in male family member before age 55, Onset Age: 82 Patient's mother is , Onset Age: 82 Sibling Hypertension Asthma Family history of diabetes mellitus in first degree relative Family history of heart disease in male family member before age 55 Grandparent Hypertension Cerebrovascular accident Family history of heart disease in male family member before age 55 Diabetes mellitus Other Olecranon bursitis of right elbow Social History Social History Social History: Caffeine- soda occasionally Currently lives with . Surrogate Decision Maker: Patrice Stephens, spouse. Code Status: Full Code.
[2023-10-20] MEDS: PANTOPRAZOLE SODIUM IV 40 MG VIAL IV PUSH ×2 (10:41→20:44)
[2023-10-20 11:33] LABS: Glucose Point of Care 90 mg/dl (65-105)
--- NOTE | 2023-10-20 15:41 | PM.IMPN ---
Progress Note: A&P Assessment and Plan (1) Near syncope: Code(s): R55 - Syncope and collapse Status: Acute Assessment and Plan: EKG showing frequent PVCs, low QRS voltage in precordial leads, borderline R wave progression (ant leads). inferior infarct, age indeterminate. no previous EKG for comparison. CXR: no acute cardiopulm disease orthostatic VS: BP 120/79 ->108/64 -> 109/84, HR 97 -> 112 -> 124 w/associated lightheadedness. continue to monitor QShift. likely secondary to volume deficit r/t ongoing N/V and poor PO intake. continue fluid resus w/1L LR bolus then 100 ml/hr x1L. trop elevated - no acute ischemic pattern/injury on EKG, cardio consulted and cleared her tele monitoring no active CP or SOB, suspect demand ischemia r/t tachycardia secondary to dehydration (2) Nausea with vomiting: Qualifiers: Vomiting type: unspecified Qualified Code(s): R11.2 - Nausea with vomiting, unspecified Code(s): R11.2 - Nausea with vomiting, unspecified Status: Acute Assessment and Plan: DDx - gastroenteritis, viral infection, exacerbation of GERD, post-op N/V. on omeprazole PO, given increase in belching will exchange to pantoprazole 40 Q12H daily. zofran IV prn - 1st line. PO home med held. Compazine and Benadryl in tandem - 2nd line. hold home Benadryl and Atarax. Tolerating clears, advance diet as tolerated WBC WNL today, UA on 10/14 unremarkable, CXR WNL. consider additional imaging if N/V worsens or does not resolve, no current indication or concerning exam finding (3) GERD without esophagitis: Code(s): K21.9 - Gastro-esophageal reflux disease without esophagitis Status: Chronic Assessment and Plan: on omeprazole PO, given increase in belching will exchange to pantoprazole 40 Q12H daily. zofran IV prn - 1st line. PO home med held. Compazine and Benadryl in tandem - 2nd line. hold home Benadryl and Atarax. (4) S/P spinal surgery: Code(s): Z98.890 - Other specified postprocedural states Status: Acute Assessment and Plan: incision is well approximated w/no signs of infection sutures removed per patient request - #67, no immediate complications. nursing staff to notify surgeon's office Procedure: Suture removal from spinal incision (from upper c-spine to lower L-spine) on 10/19/23 at 17:30. Procedure not requiring anesthetic. 67 sutures removed, intact. Non-stick dressing applied. Tolerated well. No blood loss or immediate complication. Incision remains well approximated, crusting, no surrounding erythema/swelling, and free of drainage. Subjective Date/time seen: 10/20/23 15:41 Interval history: 73 y/o F presents here with N/V and near syncope with PMH of asthma, AFib, HTN, GERD, psoriasis, RA, seizures, and extensive spinal surgeries (most recent on 09/10 and 09/17). Patient presents here with recurrent nausea and vomiting for the past 3-4 days, 1 episode of diarrhea than constipation. Denies change in stool, blood in stool. The patient was seen on 10/14 for similar symptoms. Was discharged home after rehydration and general improvement. Patient states she felt better for 2-3 days. Then had recurrent symptoms. Reports that she has been unable to eat or drink much over the last few days, but even since her surgery in August. States that her blood pressure has been dropping when she changes positions. Has had near syncopal episodes multiple times with 1 episode where she became briefly delirious, but has otherwise not lost consciousness. She is comfortable and awake this morning for exam. She is feeling better since receiving fluids and has not had any episodes of syncope since her admission. She denies nausea or vomiting overnight. Cardiology consulted and has cleared her from their standpoint. Will plan for d/c when tolerating PO intake. Review of Systems Review of Systems: All systems reviewed & are unremarkable except as
[2023-10-20] MEDS: LATANOPROST 0.005% OP SOLN 2.5 ML BTL 1 DROP EACH EYE (17:26)
[2023-10-20 17:33] LABS: Glucose Point of Care 102 mg/dl (65-105)
[2023-10-20] MEDS: BACLOFEN 5 MG TABLET PO (20:43)
[2023-10-20] MEDS: diphenhydrAMINE HCl INJ 50 MG/ML VIAL 25 MG IV PUSH (20:54)
[2023-10-21] VITALS (19 sets, daily range): BP systolic 87–123; BP diastolic 41–70; PULSE 61–123; RESP 15–20; TEMP 36.5–36.9; O2SAT 95–99
[2023-10-21 00:05] LABS: Glucose Point of Care 85 mg/dl (65-105)
--- NOTE | 2023-10-21 00:52 | PC.NURSE ---
Received change of shift report that patient's blood glucose was 102 after a liter of D5NS. Checked fingerstick during midnight rounds...result 85. Patient ate an orange jello without nausea or complaints.
[2023-10-21 05:34] LABS: Hematocrit 31.7 % (37.0-47.0); Hemoglobin 9.8 g/dL (12.0-15.0); Mean Corpuscular HGB Conc 30.9 g/dl (32-36); Mean Corpuscular Hemoglobin 28.1 pg (26-34); Mean Corpuscular Volume 90.8 fl (80-100); Mean Platelet Volume 9.2 fl (7.4-10.4); Platelet Count Result 204 k/mm3 (150-375); Red Blood Count 3.49 M/mm3 (4.2-5.4); White Blood Count 7.3 K/mm3 (4.5-10.0)
[2023-10-21 05:47] LABS: Anion Gap 7 mmol/L (8-16); Blood Urea Nitrogen 13 mg/dL (7-17); Calcium 8.1 mg/dL (8.4-10.2); Carbon Dioxide 24 mmol/L (22-30); Chloride 103 mmol/L (98-107); Estimated CRCL calculation 63 ml/min; Estimated Glomerular Filt Rate > 60; Glucose 92 mg/dL (65-110); Potassium 3.5 mmol/L (3.4-5.0); Sodium 134 mmol/L (137-145)
[2023-10-21] MEDS: FLUTICASONE/SALMETEROL 115-21 MCG INHALER 1 PUFF 2 PUFF INHALATION ×2 (08:30→21:09)
[2023-10-21] MEDS: GABAPENTIN 100 MG CAPSULE PO ×3 (08:52→17:28)
[2023-10-21] MEDS: MULTIVITAMINS THERAPEUTIC TAB (*BKC) 1 TABLET PO (08:52)
[2023-10-21] MEDS: CHOLECALCIFEROL 1,000 UNITS TABLET 1000 UNITS PO (08:52)
[2023-10-21] MEDS: PANTOPRAZOLE SODIUM IV 40 MG VIAL IV PUSH ×2 (08:52→20:27)
[2023-10-21] MEDS: PHENYTOIN SODIUM 100 MG EXTENDED RELEASE CAP PO ×3 (08:52→17:28)
[2023-10-21] MEDS: ENOXAPARIN 40 MG/0.4 ML SYRINGE SUB-Q (08:52)
[2023-10-21] MEDS: FLUCONAZOLE 50 MG TABLET PO (08:52)
--- NOTE | 2023-10-21 14:26 | PM.IMPN ---
Progress Note: A&P Assessment and Plan (1) Near syncope: Code(s): R55 - Syncope and collapse Status: Acute Assessment and Plan: EKG showing frequent PVCs, low QRS voltage in precordial leads, borderline R wave progression (ant leads). inferior infarct, age indeterminate. no previous EKG for comparison. CXR: no acute cardiopulm disease orthostatic VS: BP 120/79 ->108/64 -> 109/84, HR 97 -> 112 -> 124 w/associated lightheadedness. continue to monitor QShift. likely secondary to volume deficit r/t ongoing N/V and poor PO intake. trop elevated - no acute ischemic pattern/injury on EKG, cardio consulted and cleared her tele monitoring - will transfer out of IMU to med/surg (2) Nausea with vomiting: Qualifiers: Vomiting type: unspecified Qualified Code(s): R11.2 - Nausea with vomiting, unspecified Code(s): R11.2 - Nausea with vomiting, unspecified Status: Acute Assessment and Plan: DDx - gastroenteritis, viral infection, exacerbation of GERD, post-op N/V. on omeprazole PO, given increase in belching will exchange to pantoprazole 40 Q12H daily. zofran IV prn - 1st line. PO home med held. Compazine and Benadryl in tandem - 2nd line. hold home Benadryl and Atarax. Tolerating full liquids, advance diet as tolerated - will trial regular diet for dinner WBC WNL today, UA on 10/14 unremarkable, CXR WNL. (3) GERD without esophagitis: Code(s): K21.9 - Gastro-esophageal reflux disease without esophagitis Status: Chronic Assessment and Plan: on omeprazole PO, given increase in belching will exchange to pantoprazole 40 Q12H daily. zofran IV prn - 1st line. PO home med held. Compazine and Benadryl in tandem - 2nd line. hold home Benadryl and Atarax. (4) S/P spinal surgery: Code(s): Z98.890 - Other specified postprocedural states Status: Acute Assessment and Plan: incision is well approximated w/no signs of infection sutures removed per patient request - #67, no immediate complications. Procedure: Suture removal from spinal incision (from upper c-spine to lower L-spine) on 10/19/23 at 17:30. Procedure not requiring anesthetic. 67 sutures removed, intact. Non-stick dressing applied. Tolerated well. No blood loss or immediate complication. Incision remains well approximated, crusting, no surrounding erythema/swelling, and free of drainage. Subjective Date/time seen: 10/21/23 14:26 Interval history: 73 y/o F presents here with N/V and near syncope with PMH of asthma, AFib, HTN, GERD, psoriasis, RA, seizures, and extensive spinal surgeries (most recent on 09/10 and 09/17). Patient presents here with recurrent nausea and vomiting for the past 3-4 days, 1 episode of diarrhea than constipation. Denies change in stool, blood in stool. The patient was seen on 10/14 for similar symptoms. Was discharged home after rehydration and general improvement. Patient states she felt better for 2-3 days. Then had recurrent symptoms. Reports that she has been unable to eat or drink much over the last few days, but even since her surgery in August. States that her blood pressure has been dropping when she changes positions. Has had near syncopal episodes multiple times with 1 episode where she became briefly delirious, but has otherwise not lost consciousness. She is comfortable and awake this morning for exam. She is feeling better since receiving fluids and has not had any episodes of syncope since her admission. She denies nausea or vomiting overnight. Cardiology consulted and has cleared her from their standpoint. Advancing her diet to regular diet this evening as she has tolerated full liquids for lunch. Food is finally sounding good to her. Will have PT see her in am and plan to d/c if tolerating PO intake. Review of Systems Review of Systems: All systems reviewed & are unremarkable except as noted in HPI and below Exam Narrative: resting in hospit
[2023-10-21] MEDS: LATANOPROST 0.005% OP SOLN 2.5 ML BTL 1 DROP EACH EYE (17:28)
[2023-10-21] MEDS: diphenhydrAMINE HCl INJ 50 MG/ML VIAL 25 MG IV PUSH (20:27)
[2023-10-21] MEDS: BACLOFEN 5 MG TABLET PO (20:28)
[2023-10-22] VITALS: BP 116/66; PULSE 91; RESP 17; TEMP 37.1; O2SAT 97
[2023-10-22 03:55] VITALS: BP 124/68; PULSE 90; RESP 14; TEMP 36.5; O2SAT 100
[2023-10-22 06:10] LABS: Hematocrit 31.6 % (37.0-47.0); Hemoglobin 9.8 g/dL (12.0-15.0); Mean Corpuscular Hemoglobin 28.7 pg (26-34); Mean Corpuscular Volume 92.4 fl (80-100); Mean Platelet Volume 9.2 fl (7.4-10.4); Platelet Count Result 248 k/mm3 (150-375); Red Blood Count 3.42 M/mm3 (4.2-5.4); Red Cell Distribution Width 19.1 % (11.5-14.5); White Blood Count 6.2 K/mm3 (4.5-10.0)
[2023-10-22 06:26] LABS: Anion Gap 5 mmol/L (8-16); Blood Urea Nitrogen 11 mg/dL (7-17); Calcium 8.3 mg/dL (8.4-10.2); Carbon Dioxide 27 mmol/L (22-30); Chloride 103 mmol/L (98-107); Estimated CRCL calculation 63 ml/min; Estimated Glomerular Filt Rate > 60; Glucose 87 mg/dL (65-110); Potassium 3.9 mmol/L (3.4-5.0); Sodium 135 mmol/L (137-145)
[2023-10-22] MEDS: PANTOPRAZOLE SODIUM IV 40 MG VIAL IV PUSH (08:58)
[2023-10-22] MEDS: ENOXAPARIN 40 MG/0.4 ML SYRINGE SUB-Q (08:58)
[2023-10-22] MEDS: CHOLECALCIFEROL 1,000 UNITS TABLET 1000 UNITS PO (08:58)
[2023-10-22] MEDS: CALCIUM CARBONATE (TUMS) 500 MG (200 MG ELEMENTAL) PO (08:58)
[2023-10-22] MEDS: MULTIVITAMINS THERAPEUTIC TAB (*BKC) 1 TABLET PO (08:58)
[2023-10-22] MEDS: PHENYTOIN SODIUM 100 MG EXTENDED RELEASE CAP PO ×2 (08:58→12:27)
[2023-10-22] MEDS: GABAPENTIN 100 MG CAPSULE PO ×2 (08:58→12:27)
[2023-10-22] MEDS: FLUCONAZOLE 50 MG TABLET PO (08:58)
[2023-10-22] MEDS: FLUTICASONE/SALMETEROL 115-21 MCG INHALER 1 PUFF 2 PUFF INHALATION (08:59)
[2023-10-22 09:00] VITALS: O2SAT 94
[2023-10-22 10:10] VITALS: BP 126/62; BP 127/62; PULSE 100; PULSE 104; RESP 12; RESP 16; TEMP 37.1; TEMP 37.3; O2SAT 100
[2023-10-22 10:11] VITALS: BP 105/54; PULSE 116; RESP 16; TEMP 36.7; O2SAT 96
[2023-10-22 10:12] VITALS: BP 127/62; PULSE 104; RESP 12; TEMP 37.1; O2SAT 100
--- NOTE | 2023-10-22 12:18 | PM.DS ---
DS: Admitting Diagnosis Discharge Date 10/22/23. Admitting Diagnosis Near syncope, nausea vomiting DS: Discharge Diagnosis Discharge Diagnosis (1) Near syncope: Code(s): R55 - Syncope and collapse Status: Acute (2) Nausea with vomiting: Qualifiers: Vomiting type: unspecified Qualified Code(s): R11.2 - Nausea with vomiting, unspecified Code(s): R11.2 - Nausea with vomiting, unspecified Status: Acute (3) GERD without esophagitis: Code(s): K21.9 - Gastro-esophageal reflux disease without esophagitis Status: Chronic (4) S/P spinal surgery: Code(s): Z98.890 - Other specified postprocedural states Status: Acute DS: Summary Hospital Course Hospital Course: this is a 73-year-old female with a past medical history of asthma, AFib, hypertension, GERD, psoriasis, RA, seizures and extensive spinal surgery with most recent being 09 10 and 09 17. Patient presented to the hospital due to nausea vomiting and near syncope. She has had little to eat and drink prior to presentation. When she had been getting up to stand she had felt like her blood pressure was dropping and felt as if she was going to pass out multiple times. EKG showing frequent PVCs. Chest x-ray with no acute cardiopulmonary process. Patient's orthostatics were positive with associated lightheadedness. She was started on IV fluids. Her troponin was elevated but it did not show any ischemic pattern on EKG. Troponin remained flat and patient did not have any chest pain. She was treated with anti nausea medications and IV fluids. Diet was slowly restarted. She tolerated it well. After fluid hydration patient's symptoms improved. She was evaluated by PT and it was recommended that she continue her home health that was previously set up for her post operative spinal surgery care. Her labs and vital signs are stable and she is medically clear for discharge at this time. Time Spent with Patient Time attestation: Total time spent providing and/or coordinating discharge services: Exam Narrative: GENERAL: Comfortable, no acute distress HENMT: moist mucous membranes EYES: EOM intact b/l NECK: no lymphadenopathy RESPIRATORY: clear to auscultation CARDIO: RRR GI: soft, nontender, bowel sounds present SKIN: no rashes EXTREMITIES: no edema, redness or tenderness DS: Data Data Completed and Pending Labs on day of discharge: Labs from last 24 hours 10/22/23 05:36 WBC 6.2 RBC 3.42 L Hgb 9.8 L Hct 31.6 L MCV 92.4 MCH 28.7 MCHC 31.0 L RDW 19.1 H Plt Count 248 MPV 9.2 Sodium 135 L Potassium 3.9 Chloride 103 Carbon Dioxide 27 Anion Gap 5 L BUN 11 Creatinine 0.70 Estim Creat Clear Calc 63 Estimated GFR > 60 Glucose 87 Calcium 8.3 L Discharge Plan Discharge Attending physician on discharge: Ania Iyer Consulting providers: Winston Argueta Discharging Clinician: Zoe Dejesus Patient Disposition: Home, Self-Care Activity: as tolerated Diet: regular Discharge Instructions: Some simple steps can help manage or prevent orthostatic hypotension. These include: Wearing waist-high compression stockings. These may help improve blood flow and reduce the symptoms of orthostatic hypotension. Wear them during the day, but take them off for bed and when lying down. Getting plenty of fluids. Keeping hydrated helps prevent symptoms of low blood pressure. Drink plenty of water before long periods of standing, or any activities that tend to trigger symptoms. Avoiding alcohol. Alcohol can worsen orthostatic hypotension, so limit or avoid it completely. Increasing salt in the diet. This must be done carefully and only after discussing it with a health care provider. Too much salt can cause blood pressure to increase beyond a healthy level, creating new health risks. Eating small meals. If blood pressure drops after eating, having small, low-carbohydrate meals might
== END 2023-10-22 13:49 | disposition home or self-care (01) ==
LOC: ANHED 12:10 → ANHIMU 15:25 → ANH2MED 10-22 12:23 → ANHIMU 10-25 11:58
PROVIDERS: Emergency Medicine; Nurse Practitioner; Student in an Organized Health Care Education/Training Program; Admitting Provider Internal Medicine; Emergency Provider Student in an Organized Health Care Education/Training Program; PCP Family Medicine; Visit Provider Internal Medicine
DX: R55 Syncope and collapse (principal); K21.9 Gastro-esophageal reflux disease without esophagitis; R77.8 Other specified abnormalities of plasma proteins; I49.3 Ventricular premature depolarization; Z99.89 Dependence on other enabling machines and devices; R53.1 Weakness; J45.991 Cough variant asthma; J30.2 Other seasonal allergic rhinitis; I48.91 Unspecified atrial fibrillation; I11.9 Hypertensive heart disease without heart failure; M62.838 Other muscle spasm; R94.31 Abnormal electrocardiogram [ECG] [EKG]; M06.9 Rheumatoid arthritis, unspecified; H40.9 Unspecified glaucoma; G40.909 Epilepsy, unspecified, not intractable, without status epilepticus; E78.5 Hyperlipidemia, unspecified; K59.00 Constipation, unspecified; L40.9 Psoriasis, unspecified; Z98.890 Other specified postprocedural states; Z79.51 Long term (current) use of inhaled steroids; Z79.52 Long term (current) use of systemic steroids; Z79.82 Long term (current) use of aspirin; Z79.899 Other long term (current) drug therapy; Z82.49 Family history of ischemic heart disease and other diseases of the circulatory system
CPT/HCPCS: 36415; 71046; 80048; 80053; 82948; 83735; 84484; 85025; 85027; 87637; 93005; 94640; 96361; 96374; 96375; 96376; 97161; 97530; 99285; A9270; C9113; G0378; J0780; J1200; J1650; J2405; J7070; J7120

== ENCOUNTER 2024-06-29 08:39 | Outpatient (CLI) | payer OTHER, SELFPAY ==
[2024-06-29 19:48] LABS: Alanine Aminotransferase 18 U/L (6-35); Albumin Level 3.7 g/dL (3.5-5.1); Alkaline Phosphatase 285 U/L (38-126); Anion Gap 6 mmol/L (4-12); Aspartate Amino Transferase 40 U/L (14-36); Bilirubin,Total 0.2 mg/dL (0.2-1.3); Blood Urea Nitrogen 20 mg/dL (7-17); Calcium 9.3 mg/dL (8.4-10.2); Carbon Dioxide 30 mmol/L (22-30); Chloride 104 mmol/L (98-107); Cholesterol 159 mg/dL (0-200); Estimated Glomerular Filt Rate > 60; Glucose 74 mg/dL (65-110); HDL Direct 49 mg/dL; Phenytoin Dilantin 10 ug/mL (10-20); Potassium 5.2 mmol/L (3.4-5.0); Sodium 140 mmol/L (137-145); Triglycerides 108 mg/dL (<150)
[2024-06-29 19:56] LABS: LDL Cholesterol Direct 81 mg/dL
[2024-06-29 20:02] LABS: Hemoglobin A1C 5.2 % (<5.7)
[2024-06-29 20:07] LABS: Vitamin D 25 Hydroxy 48.8 ng/mL
[2024-06-29 20:12] LABS: Basophils Absolute Auto 0.1 K/mm3 (0.0-0.1); Eosinophils Absolute Auto 0.2 K/mm3 (0-0.3); Eosinophils Percent Auto 3.7 % (0-4.4); Hematocrit 35.9 % (37.0-47.0); Hemoglobin 10.7 g/dL (12.0-15.0); Immature Granulocyte Absolute 0.01 K/mm3 (0.00-0.031); Immature Granulocyte Percent A 0.2 % (0-0.5); Lymphocytes Percent Auto 31.4 % (18.3-44.2); Mean Corpuscular HGB Conc 29.8 g/dl (32-36); Mean Corpuscular Hemoglobin 29.2 pg (26-34); Mean Corpuscular Volume 98.1 fl (80-100); Mean Platelet Volume 9.4 fl (7.4-10.4); Monocytes Absolute Auto 0.8 K/mm3 (0.1-0.6); Monocytes Percent Auto 13.4 % (2.6-8.5); Neutrophils Absolute Auto 2.9 K/mm3 (1.3-6.7); Neutrophils Percent Auto 50.3 % (45.5-73.1); Platelet Count Result 296 k/mm3 (150-375); Red Blood Count 3.66 M/mm3 (4.2-5.4); Red Cell Distribution Width 14.6 % (11.5-14.5); White Blood Count 5.7 K/mm3 (4.5-10.0)
== END 2024-06-29 08:40 | disposition home or self-care (01) ==
LOC: ANHGOSHLAB 08:41
PROVIDERS: PCP Family Medicine; Visit Provider Nurse Practitioner Family
DX: Z00.00 Encounter for general adult medical examination without abnormal findings (principal); R73.03 Prediabetes; Z13.29 Encounter for screening for other suspected endocrine disorder; E55.9 Vitamin D deficiency, unspecified; E78.5 Hyperlipidemia, unspecified; I10 Essential (primary) hypertension; T42.0X5A Adverse effect of hydantoin derivatives, initial encounter
CPT/HCPCS: 36415; 80053; 80061; 80185; 82306; 83036; 84443; 85025

== ENCOUNTER 2024-08-18 15:46 | Outpatient (CLI) | payer OTHER, SELFPAY ==
[2024-08-18 18:29] LABS: Alanine Aminotransferase 13 U/L (6-35); Albumin Level 3.7 g/dL (3.5-5.1); Alkaline Phosphatase 267 U/L (38-126); Anion Gap 8 mmol/L (4-12); Aspartate Amino Transferase 26 U/L (14-36); Bilirubin,Total 0.2 mg/dL (0.2-1.3); Blood Urea Nitrogen 24 mg/dL (7-17); Calcium 8.7 mg/dL (8.4-10.2); Carbon Dioxide 24 mmol/L (22-30); Chloride 105 mmol/L (98-107); Estimated Glomerular Filt Rate 54; Glucose 101 mg/dL (65-110); Potassium 4.5 mmol/L (3.4-5.0); Sodium 137 mmol/L (137-145)
== END 2024-08-18 15:47 | disposition home or self-care (01) ==
LOC: ANHGOSHLAB 15:47
PROVIDERS: PCP Family Medicine; Visit Provider Family Medicine
DX: E87.5 Hyperkalemia (principal)
CPT/HCPCS: 36415; 80053

== ENCOUNTER 2024-09-27 16:32 | Outpatient (CLI) | payer OTHER, SELFPAY ==
--- NOTE | ~2024-09-27 | XR_ITS ---
EXAM: XR elbow LT min 3V DATE: 09/27/2024 16:43 HISTORY: M70.22 - Olecranon bursitis, left elbow . COMPARISON: None available. FINDINGS: Normal mineralization. No fracture or dislocation. No lytic or blastic lesion. Mild degene rative change at the elbow joint. Scattered enthesopathy, most notably at the medial epicondyle. No e rosion or periosteal change. Focal soft tissue swelling over the olecranon. IMPRESSION: Mild elbow osteoarthritis. Olecranon bursitis. Reviewed, dictated and finalized at location K.
== END 2024-09-27 16:33 | disposition home or self-care (01) ==
LOC: MICIMG 16:33
PROVIDERS: PCP Family Medicine; Visit Provider Orthopaedic Surgery
DX: M70.22 Olecranon bursitis, left elbow (principal); M19.022 Primary osteoarthritis, left elbow
CPT/HCPCS: 73080

== ENCOUNTER 2025-01-09 15:25 | Outpatient (CLI) | payer OTHER, SELFPAY ==
--- OUTSIDE RECORDS SUMMARY | 2025-01-09 16:08 | XMS_ITS | Clinical Summary ---
Author Organization [facility] Address [address] [place] [address] Phone Care Team Providers Care Take Out Waiter Name Role Phone Jay iLcea MD Primary Care Provider Allergies Active Allergy Reactions Criticality Noted Date Comments Methotrexate Nausea and Vomiting,Hypotension Medium 08/31/2023 Penicillins Angioedema High 02/08/2023 Age 17 Triamterene-Hydrochlorothiaz id Nausea and Vomiting,Headache Medium 02/08/2023 Medications metoprolol tartrate 50 mg tablet Take 50 mg by mouth daily. Active phenytoin sodium extended 100 mg capsule Take 100 mg by mouth 3 times daily. Active omeprazole 40 mg capsule,delayed release Take 40 mg by mouth daily. Active fluticasone 100 mcg-salmeteroL 50 mcg/dose blistr powdr for inhalation Take 1 Puff by inhalation 2 times daily. Active multivit with minerals/lutein (MULTIVITAMIN-M INERALS-LUTEIN ORAL) Take by mouth daily. senior Active diphenhydrAMINE 25 mg tablet Take 25 mg by mouth every 6 hours as needed for Allergies. Active acetaminophen 500 mg tablet Take 1,000 mg by mouth every 6 hours as needed. Active bimatoprost 0.01 % eye drops Administer 1 Drop in both eyes daily at bedtime. Open angle glaucoma Active fluticasone propionate 50 mcg/actuation nasal spray,suspensio n Administer 2 Sprays in each nostril daily. Active albuterol sulfate HFA 90 mcg/actuation aerosol inhaler Take 2 Puffs by inhalation every 6 hours as needed. 3 Active hydrOXYzine HCL (ATARAX) 25 mg tablet Take 25 mg by mouth daily at bedtime. 3 Active predniSONE (DELTASONE) 5 mg tablet Take 5 mg by mouth daily. prn 1 Active baclofen (LIORESAL) 5 mg tablet Take 1 Tablet (5 mg) by mouth every 12 hours. 60 Tablet 3 Active gabapentin (NEURONTIN) 100 mg capsule Take 2 Capsules (200 mg) by mouth every 8 hours. 90 Capsule 3 Active Additional Information Patient taking differently:200 mg OralFOUR TIMES DAILY, Reported on 10/16/2024 oxyCODONE (ROXICODONE) 10 mg tabletIndicatio ns:Status post lumbar spinal fusion Take 1 Tablet (10 mg) by mouth every 6 hours as needed for Pain, Moderate. Max Daily Amount: 40 mg 40 Tablet 3 Active cholecalciferol , vitamin D3, 1,000 unit Take 2 Tablets (2,000 Units) by mouth 2 times daily with meals. 60 Tablet 3 Active bisacodyL (DULCOLAX) 5 mg Delayed Release tablet Take 2 Tablets (10 mg) by mouth 1 time daily as needed for Constipation. 30 Tablet 3 Active cyclobenzaprine (FLEXERIL) 10 mg tablet Take 1 Tablet (10 mg) by mouth every 8 hours as needed for Spasm. 30 Tablet 3 Active naloxone (NARCAN) 4 mg/spray Copen, Non-Aerosol EMERGENCY USE ONLY: Administer 1 spray (4 mg) in one nostril one time. May repeat in alternating nostrils every 2-3 min until responsive or EMS arrives. 2 Each 3 3 Active traMADoL (ULTRAM) 50 mg tablet Take 50 mg by mouth every 6 hours as needed for Pain. 4 Active leflunomide (ARAVA) 20 mg Tablet Take 20 mg by mouth daily. 4 Active diphenhydramine HCl (ANTIHISTAMINE ORAL) Take by mouth. Activ e Active Problems Problem Noted Date Diagnosed Date Acquired pes planovalgus of left foot 10/16/2024 S/P spinal fusion 10/16/2024 Sagittal plane imbalance 09/21/2023 Constipation 09/21/2023 Hypotension 09/21/2023 Acute respiratory failure 09/17/2023 Postprocedural flat back syndrome 09/11/2023 Status post lumbar spinal fusion 09/11/2023 Hyperkalemia 09/11/2023 Other secondary thrombocytopenia 09/11/2023 Hypoalbuminemia 09/11/2023 Hypoproteinemia 09/11/2023 Vitamin D deficiency 09/11/2023 Hyperphosphatemia 09/11/2023 Current chronic use of systemic steroids 023 Asthma 09/11/2023 Personal history of DVT (deep vein thrombosis) 1 Gastroesophageal reflux disease 09/11/2023 Primary insomnia 09/11/2023 Environmental allergies 09/11/2023 Glaucoma 09/11/2023 Class 1 obesity due to exces s calories with serious comorbidity and body mass index (BMI) of 31.0 to 31.9 in adult 09/11/2023 Irregular heart beat 05/05/2023 Rheumatoid arthritis 05/05/2023 Acute blood loss anemia 05/05/2023 Plaque psoriasis 05/03/2023 Seizure disorder 05/03/2023 Bilateral sacroiliitis 01/21/2023 Cervical spondylosis with myelopathy 01/21/2023 S/P lumbar fusion 01/21/2023 S/P cervical spinal fusion 01/21/2023 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 01/21/2023 Carpal tunnel syndrome of left wrist 08/27/2022 Overview (05/05/2023): Added automatically from request for surgery [id number] HTN (hypertension) 07/03/2020 Iron deficiency anemia 07/03/2020 MRSA (methicillin resistant Staphylococcus aureu s) 03/23/2012 Overview (03/29/2012): Sinuses Chronic sinusitis 11/20/2011 Resolved Problems Problem Noted Date Diagnosed Date Resolved Date Wound dehiscence 06/03/2023 09/09/2023 Acquired spondylolisthesis o f cervical vertebra 05/03/2023 05/09/2023 Encounters Date Type Department Care Team Description 12/20/2024 External Device Data STL ABSTRACTION Provider, Abstract 12/20/2024 External Device Data STL ABSTRACTION Provider, Abstract 10/16/2024 1:00 PM CRIMINAL INTELLIGENCE SPECIALIST Office Visit [facility] [address] [facility] [address] [address] [place] [address] Dangelo Hopper MD S/P spinal fusion (Primary Dx); Acquired pes planovalgus of left foot 10/16/2024 11:10 AM CRIMINAL INTELLIGENCE SPECIALIST - 10/16/2024 11:59 PM CRIMINAL INTELLIGENCE SPECIALIST Hospital Encounter [facility] [address] [place] [address] Dangelo Hopper MD Discharge Disposition: Home or Self Care from Last 3 Months Family History Medical History Relation Name Comments Heart Disease Father Heart Disease Mother Relation Name Status Comments Father Mother Social History Tobacco Use Types Packs/Day Years Used Date Smoking Tobacco: Never Smokeless Tobacco: Never Alcohol Use Standard Drinks/Week Comments Not Currently 0 (1 standard drink = 0.6 oz pur e alcohol) Feeling Safe Answer Date Recorded Are you in a relationship wi th someone who hurts you emotionally and/or physically? No 09/10/2023 Food Insecurity Answer Date Recorded Social/Environmental Concerns No concerns Transportation Needs Answer Date Record ed Social/Environmental Concerns No concerns Housing Stability Answer Date Recorded Social/Environmental Concerns No concerns Utility Needs Answer Date Recorded Social/Environmental Concerns No concerns Comments No Sex and Gender Information Value Date Recorded Sex Assigned at Female 04/15/2024 3:45 PM CDT Legal Sex Female 6:06 AM CRIMINAL INTELLIGENCE SPECIALIST Gender Identity Female 04/15/2024 3:45 PM CDT Sexual Orientation Not on file Last Filed Vital Signs Vital Sign Reading Time Taken Comments Blood Pressure 109/68 10/16/2024 1:03 PM CRIMINAL INTELLIGENCE SPECIALIST Pulse 74 10/16/2024 1:03 PM CRIMINAL INTELLIGENCE SPECIALIST Temperature 37 C (98.6 F) 10/16/2024 1:03 PM CRIMINAL INTELLIGENCE SPECIALIST Respiratory Rate 16 10/16/2024 1:03 PM CRIMINAL INTELLIGENCE SPECIALIST Oxygen Saturation 93% 10/16/2024 1:03 PM CRIMINAL INTELLIGENCE SPECIALIST Inhaled Oxygen Concentration - - Weight 74.8 kg (165 lb) 10/16/2024 1:03 PM CRIMINAL INTELLIGENCE SPECIALIST Height 162.6 cm (5' 4 ) 10/16/2024 1:03 PM CRIMINAL INTELLIGENCE SPECIALIST Body Mass Index 28.32 10/16/2024 1:03 PM CRIMINAL INTELLIGENCE SPECIALIST Plan of Treatment Upcoming Encounters Date Type Department Care Team (Late st Contact Info) Description 10/15/2025 1:00 PM CRIMINAL INTELLIGENCE SPECIALIST Office Visit [facility] [address] [place] [address] Dangelo Hopper MD [address] [facility] [address] [place] [address] Health Maintenance Due Date Last Done Comments DTAP/TDAP/TD VACCINES (1 - Tdap) 1968 PNEUMOCOCCAL VACCINE 65+ YEARS (1 of 2 - PCV) 03/04/19 68 COLORECTAL SCREENING 1994 Colorectal Cancer Screening 1994 FIT-DNA Q 3 years 1994 FIT/FOBT Q 1 year 1994 Flex Sig/CT Colonography Q 5 years 1994 ZOSTER VACCINE (1 of 2) 1999 OSTEOPOROSIS SCREENING 2014 RSV VACCINE (60+ or ) (1 - 1-dose 75+ series) 2024 INFLUENZA VACCINE (#1) 2024 10/14/2016 Medical Devices Implanted Type Area Leather Products Supervisor Device Identifier Shelf Expiration Date Model / Serial / Lot Sealant Duraseal 5ml - [id number] Implanted:Qty : 1 on 09/17/2023 by Dangelo Hopper MD at [facility] Biological N/A: Back [employer] KAY 08/01/2024 / / [id number] Spacer Catalyft Pl 7mm Xpndble Strt [id number] - Sna Implanted:Qty : 1 on 09/10/2023 by Dangelo Hopper MD at [facility] Cage N/A: Spine Lumbar [employer] SOFAMOR DANEK 08/18/2031 [id number] / NA / [id number] Duragen + 1x1in Dp-1011 - [id number] Implanted:Qty : 1 on 09/17/2023 by Dangelo Hopper MD at [facility] N/A: Back [employer] 12/29/2025 [id number] / / [id number] Description:CHECKED BY 10 .23.23 Hemostatic Surgiflo 8ml W/ Thrombin 2994 - Sna Implanted:Qty : 1 on 05/04/2023 by Dangelo Hopper MD at [facility] Hemostatic N/A: Spine Cervical Posterior J&J- [employer] 05/28/2024 2994 / NA / [id number] Hemostatic Surgiflo 8ml W/ Thrombin 2994 - Sna Implanted:Qty : 1 on 05/04/2023 by Dangelo Hopper MD at [facility] Hemostatic N/A: Spine Cervical Posterior J&J- [employer] 12/29/2023 2994 / NA / [id number] Hemostatic Surgiflo 8ml W/ Thrombin 2994 - Sna Implanted:Qty : 1 on 05/04/2023 by Dangelo Hopper MD at [facility] Hemostatic N/A: Spine Cervical Posterior J&J- [employer] 12/29/2023 2994 / NA / [id number] Hemostatic Surgiflo 8ml W/ Thrombin 2994 - [id number] Implanted:Qty : 1 on 09/10/2023 by Dangelo Hopper MD at [facility] Hemostatic N/A: Back J&J- [employer] 12/29/2024 2994 / / [id number] Hemostatic Surgiflo 8ml W/ Thrombin 2994 - [id number] Implanted:Qty : 1 on 09/10/2023 by Dangelo Hopper MD at [facility] Hemostatic N/A: Back J&J- [employer] 12/29/2024 2994 / / [id number] Hemostatic Surgiflo 8ml W/ Thrombin 2994 - [id number] Implanted:Qty : 1 on 09/17/2023 by Dangelo Hopper MD at [facility] Hemostatic N/A: Back J&J- [employer] 12/29/2024 2994 / / [id number] Hemostatic Surgiflo 8ml W/ Thrombin 2994 - [id number] Implanted:Qty : 1 on 09/17/2023 by Dangelo Hopper MD at [facility] Hemostatic N/A: Back J&J- [employer] 12/29/2024 2994 / / [id number] Connector Implanted:Qty : 1 on 09/17/2023 by Dangelo Hopper MD at [facility] Other N/A: Back [employer] [id number] / / Description:1X ADD JM [place] Offset Implanted:Qty : 2 on 09/17/2023 by Dangelo Hopper MD at [facility] Other N/A: Back [employer] [id number] / / Description:1X ADD JM [place] Offset Implanted:Qty : 3 on 09/17/2023 by Dangelo Hopper MD at [facility] Other N/A: Back [employer] [id number] / / Description:1X ADD JM Rodrigo Std 3.4w167mo [id number] - Sna Implanted:Qty : 1 on 05/04/2023 by Dangelo Hopper MD at [facility] Rodrigo N/A: Spine Cervical Posterior [employer]FAMOR [employer]K [id number] / NA / NA Description:load # [id number] 704 sterilization date - April 28, 2023 Rodrigo Cdh Chromaloy+ 5.9h877xp Strt [id number] - Sn/A Implanted:Qty : 2 on 09/10/2023 by Dangelo Hopper MD at [facility] Rodrigo N/A: Spine Lumbar [employer] [id number] / N/A / N/A Description:Load # [id number] Sterile Date:09-07-2023 Rodrigo Std 3.3j946ee [id number] - [id number] Implanted:Qty : 2 on 09/17/2023 by Dangelo Hopper MD at [facility] Rodrigo N/A: Back [employer] [id number] / / Description:LOAD# [id number] STERILIZED: 09/15/2023 Rodrigo Implanted:Qty : 2 on 09/17/2023 by Dangelo Hopper MD at [facility] Rodrigo N/A: Back [employer] [id number] / / [id number] Description:1X ADD JM Screw Transition 5.5x25mm Mas [id number] - Sna Implanted:Qty : 1 on 05/04/2023 by Dangelo Hopper MD at [facility] Screw N/A: Spine Cervical Posterior [employer] 12/08/2026 [id number] / NA / [id number] Screw Transition 5.5x25mm Mas [id number] - Sna Implanted:Qty : 1 on 05/04/2023 by Dangelo Hopper MD at [facility] Screw N/A: Spine Cervical Posterior [employer]K 03/10/2027 [id number] / NA / [id number] Set Screw Infinity Oc M6 [id number] - Sna Implanted:Qty : 13 on 05/04/2023 by Dangelo Hopper MD at [facility] Screw N/A: Spine Cervical Posterior [employer] [id number] / NA / NA Description:Load # [id number] 704 sterilization date - April 28, 2023 Screw Infinity 4.5x22mm Mas [id number] - Sna Implanted:Qty : 5 on 05/04/2023 by Dangelo Hopper MD at [facility] Screw N/A: Spine Cervical Posterior [employer] [id number] / NA / NA Description:load # [id number] 605 sterilization date - April 28, 2023 Screw Infinity 4.0x18mm Mas [id number] - Sna Implanted:Qty : 2 on 05/04/2023 by Dangelo Hopper MD at [facility] Screw N/A: Spine Cervical Posterior [employer] [id number] / NA / NA Description:load # [id number] 706 sterilization date - 2022 Screw Infinity 3.5x20mm Mas [id number] - Sna Implanted:Qty : 2 on 05/04/2023 by Dangelo Hopper MD at [facility] Screw N/A: Spine Cervical Posterior [employer] [id number] / NA / NA Description:load # [id number] 706 sterilization date - 2022 Screw Transition 5.5x30mm Mas [id number] - Sna Implanted:Qty : 1 on 05/04/2023 by Dangelo Hopper MD at [facility] Screw N/A: Spine Cervical Posterior [employer] 12/26/2029 [id number] / NA / [id number] Screw Transition 5.5x25mm Mas [id number] - Sna Implanted:Qty : 1 on 05/04/2023 by Dangelo Hopper MD at [facility] Screw N/A: Spine Cervical Posterior [employer] 10/22/2029 [id number] / NA / [id number] Screw Cdh 5.0x30mm 5.5/6.0 Mas Cc [id number] - Sn/A Implanted:Qty : 4 on 09/10/2023 by Dangelo Hopper MD at [facility] N/A: Back [employer] [id number] / N/A / N/A Description:Load # [id number] Sterile Date: 09-08-2023 Screw Cdh 4.5x30mm 5.5/6.0 Mas Cc [id number] - Sn/A Implanted:Qty : 2 on 09/10/2023 by Dangelo Hopper MD at [facility] N/A: Back [employer] [id number] / N/A / N/A Description:Load # [id number] Sterile Date: 09-08-2023 Screw Cdh 4.5x40mm 5.5/6.0 Mas Cc [id number] - Sn/A Implanted:Qty : 3 on 09/10/2023 by Dangelo Hopper MD at [facility] N/A: Back [employer] [id number] / N/A / N/A Description:Load # [id number] Sterile Date: 09-08-2023 Screw Cdh 5.0x40mm 5.5/6.0 Mas Cc [id number] - Sn/A Implanted:Qty : 5 on 09/10/2023 by Dangelo Hopper MD at [facility] N/A: Back [employer] [id number] / N/A / N/A Description:Load # [id number] Sterile Date: 09-08-2023 Screw Cdh 5.5x40mm 5.5/6.0 Mas Cc [id number] - Sn/A Implanted:Qty : 2 on 09/10/2023 by Dangelo Hoppre MD at [facility] N/A: Back [employer] [id number] / N/A / N/A Description:Load # [id number] Sterile Date: 09-07-2023 Screw Cdh 5.5x50mm 5.5/6.0 Mas Cc [id number] - Sn/A Implanted:Qty : 2 on 09/10/2023 by Dangelo Hopper MD at [facility] N/A: Back [employer] [id number] / N/A / N/A Description:Load # [id number] Sterile Date: 09-07-2023 Screw Cdh 6.5x45mm 5.5/6.0 Mas Cc [id number] - Sn/A Implanted:Qty : 4 on 09/10/2023 by Dangelo Hopper MD at [facility] N/A: Back [employer] [id number] / N/A / N/A Description:Load # [id number] Sterile Date: 09-07-2023 Screw Cdh 5.5x45mm 5.5/6.0 Mas Cc [id number] - Sn/A Implanted:Qty : 2 on 09/10/2023 by Dangelo Hopper MD at [facility] N/A: Back [employer] [id number] / N/A / N/A Description:Load # [id number] Sterile Date: 09-07-2023 Screw Cdh 7.5x50mm 5.5/6.0 Mas Cc [id number] - Sn/A Implanted:Qty : 1 on 09/10/2023 by Dangelo Hopper MD at [facility] N/A: Back [employer] [id number] / N/A / N/A Description:Load # [id number] Sterile Date: 09-07-2023 Screw Cdh 7.5x55mm 5.5/6.0 Mas Cc [id number] - Sn/A Implanted:Qty : 2 on 09/10/2023 by Dangelo Hopper MD at [facility] N/A: Back [employer] [id number] / N/A / N/A Description:Load # [id number] Sterile Date: 09-07-2023 Screw Cdh 7.5x45mm 5.5/6.0 Mas Cc [id number] - Sn/A Implanted:Qty : 1 on 09/10/2023 by Dangelo Hopper MD at [facility] N/A: Back [employer] [id number] / N/A / N/A Description:Load # [id number] Sterile Date: 09-07-2023 Screw Solera 5.5/6.0 Breakoff [id number] - Sn/A Implanted:Qty : 8 on 09/10/2023 by Dangelo Hopper MD at [facility] N/A: Spine Lumbar [employer] [id number] / N/A / N/A Description:Load # [id number] Sterile Date:09-07-2023 Screw Implanted:Qty : 2 on 09/10/2023 by Dangelo Hopper MD at [facility] N/A: Spine Lumbar [employer] [id number] / / Description:1X ADD JM Screw Ti Std Break Off Solera St [id number] - [id number] Implanted:Qty : 1 on 09/17/2023 by Dangelo Hopper MD at [facility] N/A: Back [employer] [id number] / / Description:LOAD# [id number] STERILIZED: 09/13/2023 Screw Solera 5.5/6.0 Breakoff [id number] - [id number] Implanted:Qty : 30 on 09/17/2023 by Dangelo Hopper MD at [facility] N/A: Back [employer] [id number] / / Description:LOAD# [id number] STERILIZED: 09/13/2023 Procedures Procedure Name Priority Date/Time Associated Diagnosis Comments XR SPINE SCOLIOSIS 2 VW STANDING Routine 10/16/2024 11:20 AM CRIMINAL INTELLIGENCE SPECIALIST S/P spinal fusion from Last 3 Months Results * XR SPINE SCOLIOSIS 2 VW STANDING (10/16/2024 11:20 AM CRIMINAL INTELLIGENCE SPECIALIST) Anatomical Region Laterality Modality Spine Computed Radiogr aphy 10/16/2024 11:2 0 AM CRIMINAL INTELLIGENCE SPECIALIST Impressions 10/16/2024 12:59 PM CRIMINAL INTELLIGENCE SPECIALIST IMPRESSION: 1. Stable postoperative change. DICTATION LOCATION: Location [address] [place] [address] 10/16/2024 12:59 PM CRIMINAL INTELLIGENCE SPECIALIST XR SPINE SCOLIOSIS 2 VW STANDING DATE: 10/16/2024 11:20 AM HISTORY: Spinal fusion.. FINDINGS: Comparison is made to exam of 04/17/2024. Extensive posterior fusion extending from the upper cervical spine through the sacroiliac joints is unchanged in position. No loosening or hardware failure. The thoracolumbar curvature is normal. Procedure Note Geoffrey Tanner MD - 10/16/2024 XR SPINE SCOLIOSIS 2 VW STANDING DATE: 10/16/2024 11:20 AM HISTORY: Spinal fusion.. FINDINGS: Comparison is made to exam of 04/17/2024. Extensive posterior fusion extending from the upper cervical spine through the sacroiliac joints is unchanged in position. No loosening or hardware failure. The thoracolumbar curvature is normal. IMPRESSION: 1. Stable postoperative change. DICTATION LOCATION: [address] Dangelo Hopper MD DIAGNOSTIC IMAGING ORDERABLES Final Result from Last 3 Months Insurance [facility] Member Subscriber Plan / Payer (Ef fective 2015-Present) Name:Ivett Stephens Relation to Subscriber:Self Name:Ivett Stephens Payer ID:Not on file Group ID:[id number] Type:RX Medicare Part D Address: [address] Advance Directives For more information, please contact: [phone] * Full Code (Latest Code Status on File) Date Activated Date Inactivated Comments 09/10/2023 6:27 PM 09/25/2023 5:47 PM * Full Code Date Activated Date Inactivated Comments 05/29/2023 8:54 PM 06/05/2023 4:08 PM * Full Code Date Activated Date Inactivated Comments 05/04/2023 7:20 PM 05/09/2023 3:51 PM Care Teams Take Out Waiter Relationship Specialty Start Date End Date Jay Licea MD [address] [place] [address] PCP - General Family Practice 02/19/23
--- OUTSIDE RECORDS SUMMARY | 2025-01-09 16:08 | XMS_ITS | Continuity of Care Document ---
Author Organization [facility] Address [address] [place] [phone] Phone Care Team Providers Care Testboard Operator Name Role Phone Rosanne Regalado Unavailable Unavailable [...] Diagnoses Date Provider Providers Copied on Encounter [facility], [id number] [place] [address] [address], [place], [place], [id number], [place] tel:[phone] [facility] No Information Oct-0 5-201 0 Regalado Rosanne. [address] , [address], [place], [place], [facility], [place]. tel:[phone] [facility], [address] [place] [address] [address], [place], [place], [address], [place] tel:[phone] [facility] No Information Sep-3 0-201 0 Regalado Rosanne. [address] , [address], [place], [place], [facility], [place]. tel:[phone] [facility], [address], [place], [place], [address], [place] tel:[phone] [facility] No Information Jul-2 9-201 0 Regalado Rosanne. [address] , [address], [place], [place], [facility], [place]. tel:[phone] [facility], [address] [place] [address] [address], [place], [place], [address], [place] tel:[phone] [facility] No Information 5-201 0 Regalado Rosanne. [address] , [address], [place], [place], [facility], [place]. tel:[phone] [facility], [address] [place] [address] [address], [place], [place], [address], [place] tel:[phone] [facility] No Information 4-201 0 Regalado Rosanne. [address] , [address], [place], [place], [facility], [place]. tel:[phone] [facility], [address], [place], [place], [address], [place] tel:[phone] SEC [facility] [place] No Information Chalino-2 3-201 0 Dotson OD John. [address] [facility] , [address], [place], [address], [place]. tel:[phone] [facility], [address], [place], [place], [address], [place] tel:[phone] [facility] No Information Apr-1 0-200 9 Dotson OD John. [address] , [address], [place], [address], [place]. tel:[phone] [facility], [address], [place], [place], [address], [place] tel:[phone] [facility] No Information Apr-0 7-200 9 [facility] . [address] [facility], [address], [place], [place], [address], [place]. tel:[phone] Referring Provider: John Dotson OD A, [address] [place], [place] [address], [place], [address]. tel:[phone] g Provider: Sarah Saucedo, [address] [place], [address]. tel:[phone] [facility], [address], [place], [place], [address], [place] tel:[phone] [facility] No Information Mar-1 3-200 9 Dotson OD John. [facility] , [address], [place], [address], [place]. tel:[phone] [facility], [address], [place], [place], [address], [place] tel:[phone] [facility] [place] No Information Oct-1 0-200 8 Dotson OD John. [address] [facility] , [address], [place], [address], [place]. tel:[phone] Referring Provider: Jhon Dotson OD A, [facility] [address], [place], [address]. tel:[phone] [facility], [address] [place] [address] [address], [place], [place], [address], [place] tel:[phone] [facility] [place] No Information 3-200 8 [facility] . [address] [facility], [address], [place], [place], [id number], [place]. tel:[phone] Referring Provider: John Dotson OD A, [address] [place], [place] [address], [place], [address]. tel:[phone] garrido Provider: Yong Perez, [address] [place], [place] [address]ate [facility], [place], [address]. tel:[phone] Office/outpat ient Visit, Est [facility], [address] [place] [address] [address], [place], [place], [address], [place] tel:[phone] [facility] [place] No Information 9-200 8 Dotson OD John. [address] [place] [address] , [address], [place], [address], [place]. tel:[phone] [facility], [address], [place], [place], [address], [place] tel:[phone] [facility] [place] No Information 6-200 7 Dotson OD John. [address] [place] [address] Center , [address], [place], [address], [place]. tel:[phone] Referring Provider: John Dtoson OD A, [address] [place], [place] [address]ate [place] [address], [place], [address]. tel:[phone] [facility], [address] [place] [address] [address], [place], [place], [address], [place] tel:[phone] [facility] [place] No Information 3-200 7 Dotson OD John. [address] [place] [address] , [address], [place], [address], [place]. tel:[phone] Referring Provider: John Graves, [address] [place] [address] [address], [place], [place], [facility]. tel:[phone] [facility], [address] [place] [address] [address], [place], [place], [address], [place] tel:[phone] SEC [facility] No Information 0-200 7 [facility] . [address] [facility], [address], [place], [place], [address], [place]. tel:[phone] Referring Provider: John Graves, [address] [place] [address] [address], [place], [place], [facility]. tel:[phone] g Provider: Yong Perez, [address] [place] [address], [place], [facility]. tel:[phone] [facility], [address] [place] [address] [address], [place], [place], [address], [place] tel:[phone] [facility] No Information 4200 7 Dotson OD John. [address] [place] [address] , [address], [place], [place], [facility], [place]. tel:[phone] Family History Family Member Type Diagnosis Age At Onset No Information Payers Payer name Insurance type Covered democrat ID Authoriza tion(s) No Information Social History [...]
--- OUTSIDE RECORDS SUMMARY | 2025-01-09 16:08 | XMS_ITS | Encounter Summary ---
Author Organization [facility] Address [address] [place] [address] Care Team Providers Care Gas Collection System Operator Name Role Phone Niyah Barth MD Primary Care Provider Encounter Details Date Type Department Care Team (Late st Contact Info) Description 08/31/2023 Lab Requisition [facility] - DermPath Lab [address] [facility], [place] [id number] Иван Umanzor MD [address] [place] [address] Social History Tobacco Use Types Packs/Day Years Used Date Smoking Tobacco: Never Smokeless Tobacco: Never Alcohol Use Standard Drinks/Week Comments No 0 (1 standard drink = 0.6 oz pur e alcohol) Sex and Gender Information Value Date Recorded Sex Assigned at Not on file Gender Identity Not on file Sexual Orientation Not on file documented as of this encounter Plan of Treatment Not on file documented as of this encounter Procedures Procedure Name Priority Date/Time Associated Diagnosis Comments DERMATOPATHOLOGY Routine 08/30/2023 12:0 0 AM CDT documented in this encounter Results * DERMATOPATHOLOGY (08/30/2023 12:00 AM CDT) Case Report Dermatopathology Report Case: [id number] Authorizing Provider: Иван Umanzor MD Collected: 08/30/2023 12:00 AM Ordering Location: [facility] DermPath Lab Received: 08/31/2023 04:22 PM Pathologist: Elba Cano MD Specimens: A) - Skin, right post shoulder superior B) - Skin, right post shoulder inferior 9:08 AM FORMER[facility] NAMED [facility] DERMATOPATHOLOGY LABORATORY Final Diagnosis Specimen A. SKIN, right post shoulder superior: SPONGIOTIC DERMATITIS WITH EOSINOPHILS (L30.8) EPIDERMAL NECROSIS SUGGESTIVE OF EXCORIATION (L98.499) (see microscopic description and comment) Specimen B. SKIN, right post shoulder inferior: SPONGIOTIC DERMATITIS WITH EOSINOPHILS (L30.8) EPIDERMAL NECROSIS SUGGESTIVE OF EXCORIATION (L98.499) (see microscopic description and comment) 9:08 AM FORMERLY NAMED [facility] DERMATOPATHOLOGY LABORATORY Clinical History A-B: R/O Drug Eruption vs ACD 9:08 AM CDT DERMATOPATHOLOGY LABORATORY Gross Description Specimen A: Received is one formalin filled container labeled with the patient's name and designated right post shoulder superior. The specimen consists of a shave biopsy measuring 5x2x1 mm. Jar 0. Specimen B: Received is one formalin filled container labeled with the patient's name and designated right post shoulder inferior. The specimen consists of a shave biopsy measuring 6x5x1 mm. Jar 0. 9:08 AM FORMERLY NAMED [facility] DERMATOPATHOLOGY LABORATORY Microscopic Description Specimen A. SKIN, right post shoulder superior: There is focal parakeratosis and spongiosis. In the dermis there is a mainly superficial perivascular lymphohistiocytic inflammatory infiltrate with eosinophils. The epidermis is focally necrotic and covered with a scale-crust. There is fibrin at the base. COMMENT: The histological differential diagnosis includes a contact dermatitis, an eczematous drug eruption, and less likely the urticarial phase of bullous pemphigoid. Specimen B. SKIN, right post shoulder inferior: There is focal parakeratosis and spongiosis. In the dermis there is a mainly superficial perivascular lymphohistiocytic inflammatory infiltrate with eosinophils.The epidermis is focally necrotic and covered with a scale-crust. There is fibrin at the base. COMMENT: The histological differential diagnosis includes a contact dermatitis, an eczematous drug eruption, and less likely the urticarial phase of bullous pemphigoid. 10/05/202 3 9:08 AM CDT DERMATOPATHOLOGY LABORATORY Disclaimer An external and internal positive and negative controls are appropriate for the histochemical, immunohistochemical and immunofluorescence stain(s) in this case (if any), except where stated explicitly. The performance characteristics of the stain(s) cited in this report were developed and its performance characteristic determined by the Dermatopathology Laboratory at [facility], directed by Dr. Maxim Cano. These tests need not be, and therefore are not, approved by the [place] Food and Drug Administration. The tests are used for clinical purposes. Billing Codes Specimen Charges Stain Charges 34852 67377 1 1 3 9:08 AM CDT DERMATOPATHOLOGY LABORATORY Embedded Images 3 9:08 AM CDT DERMATOPATHOLOGY LABORATORY Pathology/Cytology TISSUE SPECIMEN FROM SKIN / Unknown 08/30/2023 08/31/2023 4:22 PM CDT Miscellaneous samples (specimen) TISSUE SPECIMEN FROM SKIN / Unknown 08/30/2023 08/31/2023 4:22 PM CDT Иван Umanzor MD LAB - PATHOLOGY/CYTO LOGY ORDERABLES DERMATOPATHOLOGY LABORATORY [facility] - Department of Dermatology [facility] Medicine [address] [place] [address], [address] [phone] documented in this encounter Visit Diagnoses Not on filedocumented in this encounter Care Teams Gas Collection System Operator Relationship Specialty Start Date End Date Niyah Barth MD [address] [place] [phone] PCP - General 11/12/11 documented as of this encounter
--- OUTSIDE RECORDS SUMMARY | 2025-01-09 16:08 | XMS_ITS | Clinical Summary ---
Author Organization [facility] [employer] Address [address] [place] [place] [address] Care Team Providers Care Mail Carrier Technician Name Role Phone Niyah Barth MD Primary Care Provider [phone] Source Comments [facility] [employer],non-owned Affiliates and Associated Physician Practices is amultiple site organization consisting of ambulatory clinics and hospital sitesin [place], [place], [place]. This disclosure is being madepursuant to the Care Everywhere program and may not contain all information available regarding this patient. Last updated 18.[facility] [employer] Allergies Active Allergy Reactions Criticality Noted Date Comments Contrast-Iodinated Agents For Ct/Other 02/24/2012 Penicillins 11/20/2011 Travoprost 11/20/2011 Active Problems Problem Noted Date Diagnosed Date Nasal polyp 02/08/2013 Allergic rhinitis 11/20/2011 Chronic sinusitis 11/20/2011 Family History Medical History Relation Name Comments Hypertension Brother Arthritis - Rheumatoid Father Hearing Loss Father Hypertension Father Arthritis - Rheumatoid Mother Eye Problems Mother Hearing Loss Mother Hypertension Mother Diabetes Sister Eye Problems Sister Hypertension Sister Relation Name Status Comments Brother Father Mother Sister Social History Tobacco Use Types Packs/Day Years Used Date Smoking Tobacco: Never Smokeless Tobacco: Never Alcohol Use Standard Drinks/Week Comments No 0 (1 standard drink = 0.6 oz pur e alcohol) Sex and Gender Information Value Date Recorded Sex Assigned at Not on file Gender Identity Not on file Sexual Orientation Not on file Last Filed Vital Signs Vital Sign Reading Time Taken Comments Blood Pressure - - Pulse - - Temperature - - Respiratory Rate - - Oxygen Saturation - - Inhaled Oxygen Concentration - - Weight 88.5 kg (195 lb) 03/29/2013 2:28 PM CDT Height 170.2 cm (5' 7 ) 03/29/2013 2:28 PM CDT Body Mass Index 30.54 03/29/2013 2:28 PM CDT Plan of Treatment Health Maintenance Due Date Last Done Comments BONE DENSITY TESTING 1950 COLOGUARD (AGES 45-75) - COL ON CA SCREENING 1949 COLON MONITORING 1949 COLONOSCOPY - COLON CA SCREENING 1949 CT COLONOGRAPHY - COLON CA SCREENING 1950 Colorectal Cancer Screening 1949 FIT - COLON CA SCREENING 1949 FLEX SIG - COLON CA SCREENING 1949 LIPID TESTING 1949 MAMMOGRAM 1949 HEPATITIS C SCREENING 02/28/1967 DTAP/TDAP/TD VACCINES (1 - Tdap) 1968 PNEUMOCOCCAL VACCINE 50+ (1 of 1 - PCV) 1999 ZOSTER VACCINE (1 of 2) 1999 Respiratory Syncytial Virus (RSV) Vaccine Pt: or over 60 yrs (1 - 1-dose 75+ series) 2024 COVID-19 VACCINE ( - 2023-2 5 season) 2024 INFLUENZA VACCINE (#1) 2024 DEPRESSION SCREENING 11/29/2024 MEDICARE AWV CALENDAR YEAR 2024 HEPATITIS B VACCINE Aged Out No longe r eligible based on patient's age to complete this topic HIB VACCINE Aged Out No longer eligi ble based on patient's age to complete this topic HPV VACCINE Aged Out No longer eligi ble based on patient's age to complete this topic MENINGOCOCCAL (Group B) VACCINE Aged Out No longer eligible based on patient's age to complete this topic MENINGOCOCCAL VACCINE Aged Out No nichole kina eligible based on patient's age to complete this topic Care Teams Mail Carrier Technician Relationship Specialty Start Date End Date Niyah Barth MD [address] [place] [phone] PCP - General 11/12/11
--- OUTSIDE RECORDS SUMMARY | 2025-01-09 16:08 | XMS_ITS | Clinical Summary ---
Author Organization [facility] Address [address] [place] [id number] Care Team Providers Care Religious Activities Director Name Role Phone Jay Licea MD Primary Care Provider Allergies Active Allergy Reactions Criticality Noted Date Comments Iodinated Contrast Media Other (See comments),Vomiting Low 02/24/2012 With mylogram, vomiting, tolerates other types of dyes Other Headache Low 07/24/2013 diazide Penicillins Swelling,Rash High 06/06/2009 Throat swelling Travoprost Itching Low 11/20/2011 Itchy eyes Medications omeprazole (PriLOSEC) 40 mg capsuleIndication s:Treatment of Non-Bleeding Gastric Disorder Take 1 capsule (40 mg total) by mouth every morning 8 Active gabapentin (NEURONTIN) 100 mg capsuleIndication s:Neuropathic Pain Take 1 capsule (100 mg total) by mouth 3 (three) times a day as needed 8 Active montelukast (SINGULAIR) 10 mg tabletIndications :Seasonal Allergic Rhinitis Take 1 tablet (10 mg total) by mouth nightly 8 Active tiotropium (SPIRIVA) 18 mcg per inhalation capsuleIndication s:Maintenance Therapy for Asthma Place 1 puff (1 capsule total) into inhaler and inhale every morning Active phenytoin ER (DILANTIN) 100 mg ER capsuleIndication s:seizure 1 capsule (100 mg total) 2 (two) times a day Takes 100 mg in am and 200 mg at bedtime 1 9 Active bimatoprost (LUMIGAN) 0.01 % ophthalmic dropsIndications: ocular hypertension Administer 1 drop into both eyes nightly Active diphenhydramine HCl (ALLERGY MEDICINE ORAL) Take by mouth as needed (otc) Active leflunomide (ARAVA) 20 mg tablet Take 1 tablet (20 mg total) by mouth every other day 1 Active predniSONE (DELTASONE) 5 mg tablet Take 1 tablet (5 mg) by mouth 2 (two) times a day 1 Active [id number]-txfw-C mfolate-algal 27 mg iron-1.13 mg-581.92 mg capsule Take by mouth Active traMADoL (ULTRAM) 50 mg tablet Take 1 tablet (50 mg total) by mouth every 6 (six) hours as needed for pain Active adalimumab (Humira,CF,) 40 mg/0.4 mL syringe kit 2 Active fluticasone propionate (FLONASE) 50 mcg/actuation nasal spray Active HYDROcodone-aceta minophen (NORCO) 5-325 mg per tabletIndications :Pain Take 1 tablet by mouth every 6 (six) hours as needed for pain 5 tablet 2 Active ibuprofen (ADVIL,MOTRIN) 600 mg tablet Take 1 tablet (600 mg total) by mouth every 6 (six) hours as needed for pain 30 tablet 2 Active clobetasoL (TEMOVATE) 0.05 % cream APPLY A THIN LAYER TO THE AFFECTED AREA(S) 2 TIMES PER DAY NEEDED 2 Active hydrOXYzine (ATARAX) 25 mg tablet Take 1 tablet (25 mg total) by mouth nightly 3 Active metoprolol tartrate (LOPRESSOR) 50 mg immediate release tablet Take 1 tablet (50 mg total) by mouth 2 (two) times a day 180 tablet 6 4 Active Active Problems Problem Noted Date Diagnosed Date Carpal tunnel syndrome of left wrist 08/27/2022 Overview (08/27/2022): Added automatically from request for surgery [id number] HTN (hypertension) 07/03/2020 Asthma 07/03/2020 Iron deficiency anemia 07/03/2020 Seizures 07/03/2020 Primary osteoarthritis of left hip 01/10/2020 Overview (01/10/2020): Added automatically from request for surgery [id number] Knee pain 06/14/2013 Nasal polyp 02/08/2013 MRSA (methicillin resistant Staphylococcus aureu s) 03/23/2012 Overview (08/26/2022): Sinuses Sinuses Allergic rhinitis 11/20/2011 Chronic sinusitis 11/20/2011 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/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 06/06/2009 Immunizations Name Administration Dates Next Due Moderna SARS-CoV-2 Monovalent Vaccination (12+ Y RS) 01/24/2021 Moderna Sars-cov-2 Bivalent Vaccine 50 Mcg/0.5 mL (12+ YRS)-Blue/Jones 09/19/2021 Moderna Sars-cov-2 Monovalen t Booster Vaccination (12+ YRS) 03/31/2022 Moderna Sars-cov-2 Monovalent Vaccination (6 Mos -5 Yrs) 02/21/2021 Surgical History Surgery Date Site/Laterality Comments FOOT SURGERY 11/2009, 08/2009 Left 1st MTP fusion FL FLUORO GUIDED INJECTION HIP LEFT 11/17/2019 Left CORRECTION HAMMER TOE 11/29/2009 - 12/29/2009 Left 2nd and 3rd toes TOTAL KNEE ARTHROPLASTY 08/29/2000 - 09/28/2000 Bilateral PATELLA SURGERY 07/30/2001 - 08/28/2001 Left HEMORRHOID SURGERY 11/29/1963 - 11/28/1964 TONSILLECTOMY AND ADENOIDECTOMY 11/29/1964 - 11/28/1965 POSTERIOR FUSION LUMBAR SPINE 09/29/2016 - 10/28/2016 L2-S1 LUMBAR DISCECTOMY 11/29/1966 - 11/28/1967 DILATION AND CURETTAGE OF UTERUS 1974, 1972 CARPAL TUNNEL RELEASE 1980s Right KNEE SURGERY 11/29/2000 - 11/28/2001 Left Removal of scar tissue CATARACT EXTRACTION EXTRACAPSULAR W/ INTRAOCULAR LENS IMPLANTATION 11/29/2008 - 11/28/2009 Bilateral BUNIONECTOMY 11/29/2009 - 11/28/2010 Left SINUS SURGERY 11/29/2010 - 12/29/2010 NASAL SEPTUM SURGERY 11/29/2010 - 12/29/2010 REPAIR DURAL / CSF LEAK 12/30/2010 - 01/26/2011 RETINAL DETACHMENT SURGERY 04/2014, 08/2011 Bilateral 04/2014 Left, 08/2011 Right ESOPHAGEAL DILATION 11/29/2014 - 11/28/2015 X 2 ANTERIOR CERVICAL DISCECTOMY W/ FUSION 07/30/2016 - 08/28/2016 C3-4 LUMBAR FUSION 11/29/2015 - 11/28/2016 L2-3, L3-4 4-5 and L5-S1 TOTAL HIP ARTHROPLASTY 11/29/2019 - 11/28/2020 Left Medical History Medical History Date Comments Arthritis Rheumatoid Asthma cough varient a sthma . well controlled with meds Hypertension 1984 no meds. well co ntrolled Peripheral neuropathy feet Seizures (HCC) 1991 Currently treate d with dilantin-- Last grand mal seizure ~ Seasonal allergies well controll ed with meds Obesity Glaucoma open angle. well controlled with meds PVC (premature ventricular contraction) well controlled with meds GERD (gastroesophageal reflux disease) well controlled with meds Family History Medical History Relation Name Comments Arthritis Brother Hypertension Brother Arthritis Father Heart disease Father Hypertension Father Arthritis Mother Heart disease Mother Hypertension Mother Hypertension Sister Anesthesia problems Neg Hx Relation Name Status Comments Brother Father Mother Sister Social History Tobacco Use Types Packs/Day Years Used Date Smoking Tobacco: Never Smokeless Tobacco: Never Tobacco Cessation:Counseling Given: Not Answered Alcohol Use Standard Drinks/Week Comments No 0 (1 standard drink = 0.6 oz pur e alcohol) Very Rare PHQ-2 Answer Date Recorded PHQ-2 Total Score (If total score is 3 or more points, staff should administer the PHQ-9) 0 07/05/2020 Personal Safety Answer Date Recorded Getting School Help Needed Not on file 12/14 Comments No Sex and Gender Information Value Date Recorded Sex Assigned at Not on file Legal Sex Female 3:05 AM AFTER SCHOOL COUNSELOR Gender Identity Not on file Sexual Orientation Not on file Obstetrics History Last Filed Vital Signs Vital Sign Reading Time Taken Comments Blood Pressure 112/74 09/06/2024 11:03 AM CDT Pulse 64 09/06/2024 11:03 AM CDT Temperature 36.4 C (97.5 F) 09/04/2022 1:20 PM CDT Respiratory Rate 16 09/04/2022 1:30 PM CDT Oxygen Saturation 96% 09/06/2024 11:03 AM CDT Inhaled Oxygen Concentration - - Weight 73.5 kg (162 lb) 09/06/2024 11:03 AM CDT Height 165.1 cm (5' 5 ) 09/06/2024 11:03 AM CDT Body Mass Index 26.96 09/06/2024 11:03 AM CDT Plan of Treatment Health Maintenance Due Date Last Done Comments Colon Cancer Screening-Colonoscopy 1950 Hepatitis C Screening 1950 Osteoporosis Screening-Bone Density Scan 1950 DTaP/Tdap/Td Vaccine (1 - Tdap) 1960 Hepatitis B Screening 1967 Zoster Vaccine (1 of 2) 1999 Well Visit 65+ 2014 Pneumococcal vaccine 65+ (2 of 2 - PCV) 12/18/2015 12/18/2014 Depression Screening 03/26/2021 03/26/2020, 03/26/20 20 Fall Risk Assessment 09/04/2023 09/04/2022, 05/19/20 21 Covid-19 Vaccine (4 - 2023-2 5 season) 2024 03/31/2022, 09/19/2021, 02/21/2021, Additional history exists Influenza Vaccine (#1) 2024 6, 10/28/2015, 09/27/2014, Additional history exists Medical Devices Implanted Type Area Eyeglass Inspector Device Identifier Shelf Expiration Date Model / Serial / Lot [employer] [id number] 54mm Limit 4 Hole Hip F Hemisphere Offset Shell Acetabular - S0 - [id number] Implanted:Qty : 1 on 07/05/2020 by Juwan Simms MD at [facility] Other - see comments Left: Hip [employer] [id number] 12/30/2029 [id number] / 0 / [id number] [employer] [id number] Taperloc Xr Series 142mm Press Fit Full Profile Hip 123d 11 Stem - S0 - [id number] Implanted:Qty : 1 on 07/05/2020 by Juwan Simms MD at [facility] Other - see comments Left: Hip [employer] [id number] 05/14/2029 [id number] / 0 / [id number] Liner Hip G7 Longevity 5mm 32mm D - [id number] Implanted:Qty : 1 on 07/05/2020 by Juwan Simms MD at [facility] Left: Hip [employer] [id number] 12/29/[id number] / / [id number] [employer] 650-6030 G7 36mm Type 1 Modular Hip Acetabular +3mm Offset Head Femoral - [id number] Implanted:Qty : 1 on 07/05/2020 by Juwan Simms MD at [facility] Left: Hip [employer] 03/27/2030 [id number] / / [id number] [place] [address] [address] [place] [address] HEALTHCARE [facility] Advance Directives For more information, please contact: [phone] * Full Code (Latest Code Status on File) Date Activated Date Inactivated Comments 07/05/2020 11:51 AM 07/06/2020 3:59 PM Care Teams Religious Activities Director Relationship Specialty Start Date End Date Jay Licea MD PCP - General Family Practice 01/09/21
--- OUTSIDE RECORDS SUMMARY | 2025-01-09 16:08 | XMS_ITS | Encounter Summary ---
Author Organization [facility] Address [address] [place] [address] Care Team Providers Care Hide Cooking Operator Name Role Phone Jay Licea MD Primary Care Provider Reason for Visit * Reason Onset Date Comments BACK SURGERY 09/15/2023 SPOKE WITH AKILAH / DR. MENDOZA OFFICE Encounter Details Date Type Department Care Team (Late st Contact Info) Description 09/15/2023 Telephone [facility] Admitting [address] [place] [address] Dangelo Hopper MD [address] [facility] [address] [place] [address] BACK SURGERY (SPOKE WITH AKILAH / DR. MENDOZA OFFICE) Social History Tobacco Use Types Packs/Day Years [...] PM CDT Legal Sex Female 6:06 AM RESTAURANT SHIFT LEADER Gender Identity Female 04/15/2024 3:45 PM CDT Sexual Orientation Not on file documented as of this encounter Plan of Treatment Upcoming Encounters Date Type Department Care Team (Late st Contact Info) Description 10/15/2025 1:00 PM RESTAURANT SHIFT LEADER Office Visit [facility] [address] [facility] [address] [facility] [address] [place] [address] Dangelo Hopper MD [address] [facility] [address] [place] [address] documented as of this encounter Visit Diagnoses Not on filedocumented in this encounter Care Teams Hide Cooking Operator Relationship Specialty Start Date End Date Jay Licea MD [address] [place] [id number] PCP - General Family Practice 02/19/23 documented as of this encounter
--- OUTSIDE RECORDS SUMMARY | 2025-01-09 16:08 | XMS_ITS | Referral Summary ---
Author Organization [facility] Address [address] [place] [address] Care Team Providers Care Radiology Rn Name Role Phone Jay Licea MD Primary [...] 2 (two) times a day 1 Active yotugglx72-swut-E mfolate-algal 27 mg iron-1.13 mg-581.92 mg capsule [...] (08/27/2022): Added automatically from request for surgery [id number] HTN (hypertension) 07/03/2020 Asthma 07/03/2020 Iron deficiency anemia 07/03/2020 Seizures 07/03/2020 Primary osteoarthritis of left hip 01/10/2020 Overview (01/10/2020): Added automatically from request for surgery [id number] Knee pain 06/14/2013 Nasal polyp 02/08/2013 MRSA [...] Monovalent Vaccination (6 Mos -5 Yrs) 02/21/2021 Social History Tobacco Use Types Packs/Day Years [...] on file Legal Sex Female 3:05 AM SYBASE DEVELOPER Gender Identity Not on file Sexual Orientation [...] 09/06/2024 11:03 AM CDT Plan of Treatment Not on file Medical Devices Implanted Type Area Product Marketing Programs Manager Device Identifier Shelf Expiration Date Model / Serial / Lot [employer] [id number] [id number] 54mm Limit 4 Hole Hip F Hemisphere Offset Shell Acetabular - S0 - [id number] Implanted:Qty : 1 on 07/05/2020 by Juwan Simms MD at [facility] Other - see comments Left: Hip [employer] [id number] 12/30/2029 [id number] / 0 / [id number] [employer] [id number] Taperloc Xr Series 142mm Press Fit Full Profile Hip 123d 11 Stem - S0 - [id number] Implanted:Qty : 1 on 07/05/2020 by Juwan Simms MD at [facility] Other - see comments Left: Hip [employer] [id number] 05/14/2029 [id number] / 0 / [id number] Liner Hip G7 Longevity 5mm 32mm D - [id number] Implanted:Qty : 1 on 07/05/2020 by Juwan Simms MD at [facility] Left: Hip [employer] [id number] 12/29/[id number] / / [id number] [employer] 650-0662 G7 36mm Type 1 Modular Hip Acetabular +3mm Offset Head Femoral - [id number] Implanted:Qty : 1 on 07/05/2020 by Juwan Simms MD at [facility] Left: Hip [employer] 03/27/2030 [id number] / / [id number] Insurance [facility] [place] [address] HEALTHCARE Advance Directives For more information, please contact: [phone] * Full Code (Latest Code Status on File) Date Activated Date Inactivated Comments 07/05/2020 11:51 AM 07/06/2020 3:59 PM Care Teams Radiology Rn Relationship Specialty Start Date End Date Jay Licea MD PCP - General Family Practice 01/09/21
--- OUTSIDE RECORDS SUMMARY | 2025-01-09 16:08 | XMS_ITS | Encounter Summary ---
Author Organization [facility] Address [address] [place] [address] Care Team Providers Care Blood Bank Laboratory Professional Name Role Phone Peg Daugherty MD Primary Care Provider Jay Licea MD Primary Care Provider Encounter Details Date Type Department Care Team (Late st Contact Info) Description 07/08/2020 Documentation [facility] Case Management [id number] [place] [address] Mindi Parisi RN Social History Tobacco Use Types Packs/Day Years Used Date Smoking Tobacco: Never Smokeless Tobacco: Never Alcohol Use Standard Drinks/Week Comments No 0 (1 standard drink = 0.6 oz pur e alcohol) Very Rare PHQ-2 Answer Date Recorded PHQ-2 Total Score (If total score is 3 or more points, staff should administer the PHQ-9) 0 07/05/2020 Comments No Sex and Gender Information Value Date Recorded Sex Assigned at Not on file Legal Sex Female 3:05 AM FIRST RESPONDER Gender Identity Not on file Sexual Orientation Not on file documented as of this encounter Plan of Treatment Not on file documented as of this encounter Visit Diagnoses Not on filedocumented in this encounter Care Teams Blood Bank Laboratory Professional Relationship Specialty Start Date End Date Peg Daugherty MD PCP - General Family Medicine 11/03/19 01/08/21 Jay Licea MD PCP - General Family Practice 01/09/21 documented as of this encounter
--- OUTSIDE RECORDS SUMMARY | 2025-01-09 16:08 | XMS_ITS | Patient Health Summary ---
Author Organization [facility] Address [address] [place] [address] Care Team Providers Care Program Development Specialist Name Role Phone Niyah Barth MD Primary Care Provider Note from [facility],non-owned Affiliates and Associated Physician Practices is amultiple site organization consisting of ambulatory clinics and hospital sitesin [place], [place], [place] and [place]. This disclosure is being madepursuant to the Care Everywhere program and may not contain all information available regarding this patient. Last updated 18.[facility] [employer] Allergies * Contrast-Iodinated Agents For Ct/Other * Penicillins * Travoprost Active Problems Problem Noted Date Diagnosed Date Nasal polyp 02/08/2013 Allergic rhinitis 11/20/2011 Chronic sinusitis 11/20/2011 Social History Tobacco Use Types Packs/Day Years [...] Mass Index 30.54 03/29/2013 2:28 PM CDT Procedures * DERMATOPATHOLOGY(Performed 08/30/2023) * PATHOLOGY/GENETICS HISTORICAL-ONBASE(Performed 04/29/2013) * PATHOLOGY/GENETICS HISTORICAL-ONBASE(Performed 04/26/2013) * PATHOLOGY/GENETICS HISTORICAL-ONBASE(Performed 04/26/2013) * LAB HISTORICAL RESULTS-ONBASE(Performed 08/11/2012) * LAB HISTORICAL RESULTS-ONBASE(Performed 08/11/2012) * LAB HISTORICAL RESULTS-ONBASE(Performed 08/11/2012) * LAB HISTORICAL RESULTS-ONBASE(Performed 08/11/2012) * LAB HISTORICAL RESULTS-ONBASE(Performed 08/11/2012) * LAB HISTORICAL RESULTS-ONBASE(Performed 03/23/2012) * LAB HISTORICAL RESULTS-ONBASE(Performed 03/23/2012) * LAB HISTORICAL RESULTS-ONBASE(Performed 03/23/2012) * BETA-2 TRANSFERRIN FLUID(Performed 01/29/2012) * LAB HISTORICAL RESULTS-ONBASE(Performed 01/29/2012) * BETA-2 TRANSFERRIN FLUID(Performed 01/21/2012) * LAB HISTORICAL RESULTS-ONBASE(Performed 01/21/2012) * PHENYTOIN LEVEL TOTAL(Performed 12/28/2011) * PHENYTOIN LEVEL FREE(Performed 12/28/2011) * BASIC METABOLIC PANEL (CALCIUM TOTAL)(Performed 12/28/2011) * CBC W AUTO DIFFERENTIAL(Performed 12/28/2011) * LAB HISTORICAL RESULTS-ONBASE(Performed 12/28/2011) Results * DERMATOPATHOLOGY (08/30/2023 12:00 AM CDT) Case Report Dermatopathology Report Case: [id number] Authorizing Provider: Иван Umanzor MD Collected: 08/30/2023 12:00 AM Ordering Location: [facility] DermPath Lab Received: 08/31/2023 04:22 PM Pathologist: Elba Cano MD Specimens: A) - Skin, right post shoulder superior B) - Skin, right post shoulder inferior 9:08 AM CDT DERMATOPATHOLOGY LABORATORY Final Diagnosis Specimen A. SKIN, right post shoulder superior: SPONGIOTIC DERMATITIS WITH EOSINOPHILS (L30.8) EPIDERMAL NECROSIS SUGGESTIVE OF EXCORIATION (L98.499) (see microscopic description and comment) Specimen B. SKIN, right post shoulder inferior: SPONGIOTIC DERMATITIS WITH EOSINOPHILS (L30.8) EPIDERMAL NECROSIS SUGGESTIVE OF EXCORIATION (L98.499) (see microscopic description and comment) 3 9:08 AM [facility] DERMATOPATHOLOGY LABORATORY Clinical History A-B: R/O Drug Eruption vs ACD 9:08 AM [facility] DERMATOPATHOLOGY LABORATORY Gross Description Specimen A: Received [...] measuring 6x5x1 mm. Jar 0. 9:08 AM [facility] DERMATOPATHOLOGY LABORATORY Microscopic Description Specimen A. 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 9:08 AM [facility] DERMATOPATHOLOGY LABORATORY Disclaimer An external and internal positive and negative controls are appropriate for the histochemical, immunohistochemical and immunofluorescence stain(s) in this case (if any), except where stated explicitly. The performance characteristics of the stain(s) cited in this report were developed and its performance characteristic determined by the Dermatopathology Laboratory at [facility], directed by Dr. Maxim Cano. These tests need not be, and therefore are not, approved by the [place] Food and Drug Administration. The tests are used for clinical purposes. Billing Codes Specimen Charges Stain Charges 03031 60771 1 1 3 9:08 AM CDT DERMATOPATHOLOGY LABORATORY Embedded Images 3 9:08 AM CDT DERMATOPATHOLOGY LABORATORY Pathology/Cytology TISSUE SPECIMEN FROM SKIN / Unknown 08/30/2023 08/31/2023 4:22 PM CDT Miscellaneous samples (specimen) TISSUE SPECIMEN FROM SKIN / Unknown 08/30/2023 08/31/2023 4:22 PM CDT Иван Umanzor MD LAB - PATHOLOGY/CYTO LOGY ORDERABLES Performing Organization Address [facility] Co de Phone Number DERMATOPATHOLOGY LABORATORY [facility] Department of Dermatology [address] [phone] * PATHOLOGY/GENETICS HISTORICAL-ONBASE (04/29/2013) Only the most recent of3 resultswithin the time period is included. 04/29/2013 [facility] - 05/01/2013 8:32 AM CDT Historical Provider LAB - CHEMISTRY O RDMARGARET Performing Organization Address [facility] de Phone Number [facility] [address] * LAB HISTORICAL RESULTS-ONBASE (08/11/2012) Only the most recent of11 resultswithin the time period is included. 08/11/2012 [facility] - 09/07/2012 8:58 AM CDT Historical Provider LAB - CHEMISTRY O RDERAJER Performing Organization Address [facility] Co de Phone Number [facility] [address] * BETA-2 TRANSFERRIN FLUID (01/29/2012 11:19 AM PLANNER SCHEDULER) Only the most recent of2 resultswithin the time period is included. Beta-2 Transferrin SEE NOTE S [facility] Comment: The sample of nasal fluid submitted for beta-2 transferrin analysis demonstrates the presence of a single band corresponding to transferrin as determined by immunofixation electrophoresis This finding indicates that this fluid specimen likely DOES NOT contain significant amounts of cerebrospinal fluid (CSF). Flor Painter, Ph.D. 01/29/2012 11:1 9 AM PLANNER SCHEDULER 01/29/2012 12:01 PM PLANNER SCHEDULER Vinay Oviedo MD LAB - BODY FLUID OR DERABLES [facility] [address] [phone] * (ABNORMAL) CBC W AUTO DIFFERENTIAL (12/28/2011 11:00 AM PLANNER SCHEDULER) WBC 6.3 3.8 - 10.8 Thousand/u L [facility]) RBC 4.08 3.80 - 5.10 Million/uL [facility] Hemoglobin 13.9 11.7 - 15.5 g/dL [facility]) Hematocrit 39.0 35.0 - 45.0 % [facility] MCV 95.5 80.0 - 100.0 fL [facility]) MCH 34.0(H) 27.0 - 33.0 pg [facility] MCHC 35.6 32.0 - 36.0 g/dL [facility]) RDW 14.0 11.0 - 15.0 % [facility] Platelet 228 140 - 400 Thousand/u L [facility]) Neutrophils Absolute 3377 1500 - 7800 cells/uL [facility]) Lymphocyte Absolute 1764 850 - 3900 cells/uL [facility]) Monocytes Absolute 479 200 - 950 cells/uL [facility]) Eosinophils Absolute 630(H) 15 - 500 cells/uL [facility]) Basophils Absolute 50 0 - 200 cells/uL [facility]) Neutrophils % 53.6 % [facility] Lymphocytes % 28.0 % [facility] Monocytes % 7.6 % [facility] Eosinophils % 10.0 % [facility] Basophils % 0.8 % [facility] Comment: REPORT COMMENT: PLEASE FAX RESULTS TO [phone]; Test Performed at: [facility] [address] [address] BRITTNEY HOOKS DO Venous blood specimen (specimen) 12/28/2011 11:00 AM PLANNER SCHEDULER 12/28/2011 11:02 AM PLANNER SCHEDULER Narrative [facility]) - 12/28/2011 2:00 PM PLANNER SCHEDULER Please fax results to [phone] Preferred Lab:->[facility] Vinay Oviedo MD LAB - HEMATOLOGY OR DERABLES Performing Organization Address [facility] de Phone Number [facility]) * BASIC METABOLIC PANEL (CALCIUM TOTAL) (12/28/2011 11:00 AM PLANNER SCHEDULER) Pathologist [facility] Glucose 86 65 - 99 mg/dL [facility]) Comment: Fasting reference interval BUN 19 7 - 25 mg/dL [facility]) Creatinine 0.83 0.50 - 0.99 mg/dL [facility]) Comment: For patients >49 years of age, the reference limit for Creatinine is approximately 13% higher for people identified as -[place]yr[place]. BUN/Creatinine Ratio NOT APPLICABLE 6 - 22 (calc) [facility] Sodium 142 135 - 146 mmol/L [facility]) Potassium 4.4 3.5 - 5.3 mmol/L [facility]) Chloride 107 98 - 110 mmol/L [facility]) CO2 24 21 - 33 mmol/L [facility]) Calcium 9.6 8.6 - 10.4 mg/dL [facility]) Comment: REPORT COMMENT: PLEASE FAX RESULTS TO [phone]; Test Performed at: [facility] [id number] [place] [address] BRITTNEY HOOKS DO,MPH Venous blood specimen (specimen) (Arm, Left) 12/28/2011 11:00 AM PLANNER SCHEDULER 12/28/2011 11:02 AM PLANNER SCHEDULER Narrative [facility]) - 12/29/2011 4:00 AM PLANNER SCHEDULER Please fax results to [phone] Preferred Lab:->[facility] Vinay Oviedo MD LAB - CHEMISTRY ORD ERABLES Performing Organization Address [facility] Co de Phone Number [facility]) * PHENYTOIN LEVEL TOTAL (12/28/2011 11:00 AM PLANNER SCHEDULER) Pathologist [facility] Phenytoin 13.0 10.0 - 20.0 mg/L [facility]) Comment: REPORT COMMENT: PLEASE FAX RESULTS TO [phone]; Test Performed at: [facility] [place] [id number] [place] [address] BRITTNEY HOOKS DO,MPH 12/28/2011 11:0 0 AM PLANNER SCHEDULER 12/28/2011 11:02 AM PLANNER SCHEDULER Vinay Oviedo MD LAB - CHEMISTRY ORD ERABLES [facility]) * PHENYTOIN LEVEL FREE (12/28/2011 11:00 AM PLANNER SCHEDULER) Pathologist [facility] Phenytoin Free TNP [facility]) Comment: * Test not performed. * * Test ordered in error. * REPORT COMMENT: PLEASE FAX RESULTS TO [phone]; Test Performed at: [facility] [address] [address] FABRICIO SERRANO MD Venous blood specimen (specimen) 12/28/2011 11:00 AM PLANNER SCHEDULER 12/28/2011 11:02 AM PLANNER SCHEDULER Narrative [facility]) - 12/29/2011 11:00 AM PLANNER SCHEDULER Please fax results to [phone] Preferred Lab:->[facility] Vinay Oviedo MD LAB - CHEMISTRY ORD ERABLES [facility]) Care Teams Program Development Specialist Relationship Specialty Start Date End Date Niyah Barth MD [address] [place] [address] [address] [place] [address] PCP - General 11/12/11
--- OUTSIDE RECORDS SUMMARY | 2025-01-09 16:08 | XMS_ITS | Referral Summary ---
Author Organization [facility] Address [address] [place] [address] Care Team Providers Care Wagon Drill Operator Name Role Phone Niyah Barth MD Primary Care Provider Source Comments [facility],non-owned Affiliates and Associated Physician Practices is amultiple site organization consisting of ambulatory clinics and hospital sitesin [place], [place], [place] and [place]. This disclosure is being madepursuant to the Care Everywhere program and may not contain all information available regarding this patient. Last updated 18.[facility] [employer] Allergies Active Allergy Reactions Criticality Noted Date [...] 03/29/2013 2:28 PM CDT Plan of Treatment Not on file Care Teams Wagon Drill Operator Relationship Specialty Start Date End Date Niyah Barth MD [address] [place] [address] [address] [place] [id number] PCP - General 11/12/11
[2025-01-10 14:39] LABS: GGT 274 U/L (3-65)
== END 2025-01-09 15:26 | disposition home or self-care (01) ==
LOC: ANHGOSHLAB 15:28
PROVIDERS: PCP Family Medicine
DX: R74.8 Abnormal levels of other serum enzymes (principal)
CPT/HCPCS: 36415; 82977

== ENCOUNTER 2025-01-26 12:34 | Outpatient (CLI) | payer MEDICARE, SELFPAY ==
[2025-01-26 18:30] LABS: Basophils Absolute Auto 0.1 K/mm3 (0.0-0.1); Basophils Percent Auto 1.7 % (0.2-1.2); Eosinophils Absolute Auto 0.6 K/mm3 (0-0.3); Eosinophils Percent Auto 10.8 % (0-4.4); Hematocrit 34.2 % (37.0-47.0); Immature Granulocyte Absolute 0.01 K/mm3 (0.00-0.031); Immature Granulocyte Percent A 0.2 % (0-0.5); Lymphocytes Absolute Auto 1.39 K/mm3 (0.9-3.2); Lymphocytes Percent Auto 26.3 % (18.3-44.2); Mean Corpuscular HGB Conc 32.2 g/dl (32-36); Mean Corpuscular Hemoglobin 29.7 pg (26-34); Mean Corpuscular Volume 92.4 fl (80-100); Mean Platelet Volume 9.3 fl (7.4-10.4); Monocytes Absolute Auto 0.7 K/mm3 (0.1-0.6); Monocytes Percent Auto 13.4 % (2.6-8.5); Neutrophils Absolute Auto 2.5 K/mm3 (1.3-6.7); Neutrophils Percent Auto 47.6 % (45.5-73.1); Platelet Count Result 260 k/mm3 (150-375); Red Cell Distribution Width 14.6 % (11.5-14.5); White Blood Count 5.3 K/mm3 (4.5-10.0)
[2025-01-26 18:40] LABS: Alanine Aminotransferase 18 U/L (6-35); Albumin Level 3.6 g/dL (3.5-5.1); Alkaline Phosphatase 289 U/L (38-126); Anion Gap 7 mmol/L (4-12); Aspartate Amino Transferase 29 U/L (14-36); Bilirubin,Total 0.4 mg/dL (0.2-1.3); Blood Urea Nitrogen 24 mg/dL (7-17); Carbon Dioxide 27 mmol/L (22-30); Chloride 107 mmol/L (98-107); Cholesterol 155 mg/dL (0-200); Estimated Glomerular Filt Rate > 60; Glucose 85 mg/dL (65-110); HDL Direct 52 mg/dL; Potassium 4.8 mmol/L (3.4-5.0); Sodium 141 mmol/L (137-145); Triglycerides 122 mg/dL (<150)
[2025-01-26 18:42] LABS: Iron 81 ug/dL (37-170)
[2025-01-26 18:51] LABS: LDL Cholesterol Direct 67 mg/dL
[2025-01-26 18:54] LABS: Percent Iron Saturation 28 % (20-50)
[2025-01-26 18:58] LABS: Vitamin D 25 Hydroxy 54.9 ng/mL
[2025-01-30 20:19] LABS: Phenytoin Dilantin Free 1.1 mg/L (1.0-2.0)
== END 2025-01-26 12:35 | disposition home or self-care (01) ==
LOC: ANHGOSHLAB 12:35
PROVIDERS: PCP Family Medicine; Visit Provider Nurse Practitioner Family
DX: I10 Essential (primary) hypertension (principal); D64.9 Anemia, unspecified; G40.909 Epilepsy, unspecified, not intractable, without status epilepticus; E78.5 Hyperlipidemia, unspecified; E55.9 Vitamin D deficiency, unspecified
CPT/HCPCS: 36415; 80053; 80061; 80186; 82306; 82607; 82728; 83540; 83550; 84443; 85025

== ENCOUNTER 2025-03-07 17:25 | Emergency (ER) | payer MEDICARE, SELFPAY ==
--- NOTE | ~2025-03-07 | XR_ITS ---
XR chest 2V Ordering provider: Sergio Chase MD History: 75 years Female with . chest pain, dyspnea . Comparison: October 19, 2023 FINDINGS: MEDIASTINUM: The cardiac silhouette is not enlarged. LUNGS: No infiltrates, effusions or pneumothorax. Haziness in the left lung base which may indicate a telectasis OTHER: No free air under the diaphragm. Postoperative changes in the spine IMPRESSION: Haziness in the left lung base which may indicate atelectasis unchanged from previous examination. Ot herwise, No acute cardiopulmonary pathology. Reviewed, dictated and finalized at location A. IMPRESSION: Haziness in the left lung base which may indicate atelectasis unchanged from pr evious examination. Otherwise, No acute cardiopulmonary pathology.
--- OUTSIDE RECORDS SUMMARY | 2025-03-07 17:27 | XMS_ITS | Clinical Summary ---
Author Organization [facility] Address [address] [place] [address] Phone Care Team Providers Care Healthcare Customer Service Name Role Phone Jay Licea MD Primary [...] Tablet 3 Active naloxone (NARCAN) 4 mg/spray [place], Non-Aerosol EMERGENCY USE ONLY: Administer 1 spray [...] (05/05/2023): Added automatically from request for surgery [id number] HTN (hypertension) 07/03/2020 Iron deficiency anemia 07/03/2020 MRSA (methicillin resistant Staphylococcus aureu s) 03/23/2012 Overview (03/29/2012): Sinuses Chronic sinusitis 11/20/2011 Resolved Problems Problem Noted Date Diagnosed Date Resolved Date Wound dehiscence 06/03/2023 09/09/2023 Acquired spondylolisthesis o f cervical vertebra 05/03/2023 05/09/2023 Encounters Date Type Department Care Team Description 01/31/2025 External Device Data STL ABSTRACTION Provider, Abstract 12/20/2024 External Device Data STL ABSTRACTION Provider, Abstract 12/20/2024 External Device Data STL ABSTRACTION Provider, Abstract from Last 3 Months Family History Medical [...] PM CDT Legal Sex Female 6:06 AM RN MOBILE Gender Identity Female 04/15/2024 3:45 PM CDT Sexual Orientation Not on file Last Filed Vital Signs Vital Sign Reading Time Taken Comments Blood Pressure 109/68 10/16/2024 1:03 PM RN MOBILE Pulse 74 10/16/2024 1:03 PM RN MOBILE Temperature 37 C (98.6 F) 10/16/2024 1:03 PM RN MOBILE Respiratory Rate 16 10/16/2024 1:03 PM RN MOBILE Oxygen Saturation 93% 10/16/2024 1:03 PM RN MOBILE Inhaled Oxygen Concentration - - Weight 74.8 kg (165 lb) 10/16/2024 1:03 PM RN MOBILE Height 162.6 cm (5' 4 ) 10/16/2024 1:03 PM RN MOBILE Body Mass Index 28.32 10/16/2024 1:03 PM RN MOBILE Plan of Treatment Upcoming Encounters Date Type Department Care Team (Late st Contact Info) Description 10/15/2025 1:00 PM RN MOBILE Office Visit [facility] Neurosurgery [address] [facility] [address] [place] [address] Dangelo Hopper MD [address] [facility] [address] [place] [address] Health Maintenance Due Date Last Done Comments DTAP/TDAP/TD VACCINES (1 - Tdap) 1968 PNEUMOCOCCAL VACCINE 50+ YEARS (1 of 2 - PCV) 03/04/19 68 COLORECTAL SCREENING 1994 Colorectal Cancer Screening 1994 FIT-DNA Q 3 years 1994 FIT/FOBT Q 1 year 1994 Flex Sig/CT Colonography Q 5 years 1994 ZOSTER VACCINE (1 of 2) 1999 OSTEOPOROSIS SCREENING 2014 RSV VACCINE (60+ or ) (1 - 1-dose 75+ series) 2024 INFLUENZA VACCINE (#1) 2024 10/14/2016 [place] Prev entative Visit/Annual Wellness Visit 11/29/2024 Medical Devices Implanted Type Area Professional Services Specialist Device Identifier Shelf Expiration Date Model / Serial / Lot Sealant Duraseal 5ml - [id number] Implanted:Qty : 1 on 09/17/2023 by Dangelo Hopper MD at [facility] Biological N/A: Back [employer] KAY 08/01/2024 / / [id number] Spacer Catalyft Pl 7mm Xpndble Strt [id number] - Sna Implanted:Qty : 1 on 09/10/2023 by Dangelo Hopper MD at [facility] Cage N/A: Spine Lumbar [employer]- SOFAMOR DANEK 08/18/2031 [id number] / NA / [id number] Duragen + 1x1in Dp-1011 - [id number] Implanted:Qty : 1 on 09/17/2023 by Dangelo Hopper MD at [facility] Graft N/A: Back [employer] 12/29/2025 [id number] / / [id number] Description:CHECKED BY NORMA Hemostatic Surgiflo 8ml W/ Thrombin 2994 - Sna Implanted:Qty : 1 on 05/04/2023 by Dangelo Hopper MD at [facility] Hemostatic N/A: Spine Cervical Posterior J&J- ETHICON INC 05/28/2024 2994 / NA / [id number] Hemostatic Surgiflo 8ml W/ Thrombin 2994 - Sna Implanted:Qty : 1 on 05/04/2023 by Dangelo Hopper MD at [facility] Hemostatic N/A: Spine Cervical Posterior J&J- [employer] 12/29/2023 2994 / NA / [id number] Hemostatic Surgiflo 8ml W/ Thrombin 2994 - Sna Implanted:Qty : 1 on 05/04/2023 by Dangelo Hopper MD at [facility] Hemostatic N/A: Spine Cervical Posterior J&J- [employer] 12/29/2023 2994 / NA / [id number] Hemostatic Surgiflo 8ml W/ Thrombin 2994 - [id number] Implanted:Qty : 1 on 09/10/2023 by Dangelo Hopper MD at [facility] Hemostatic N/A: Back J&J- [employer] 12/29/2024 2994 / / [id number] Hemostatic Surgiflo 8ml W/ Thrombin 2994 - [id number] Implanted:Qty : 1 on 09/10/2023 by Dangelo oHpper MD at [facility] Hemostatic N/A: Back J&J- [employer] 12/29/2024 2994 / / [id number] Hemostatic Surgiflo 8ml W/ Thrombin 2994 - [id number] Implanted:Qty : 1 on 09/17/2023 by Dangelo Hopper MD at [facility] Hemostatic N/A: Back J&J- [employer] 12/29/2024 2994 / / [id number] Hemostatic Surgiflo 8ml W/ Thrombin 2994 - [id number] Implanted:Qty : 1 on 09/17/2023 by Dangelo Hopper MD at [facility] Hemostatic N/A: Back J&J- [employer] 12/29/2024 2994 / / [id number] Connector Implanted:Qty : 1 on 09/17/2023 by Dangelo Hopper MD at [facility] Other N/A: Back [employer] [id number] / / Description:1X ADD ZAIDA Dewayne Offset Implanted:Qty : 2 on 09/17/2023 by Dangelo Hopper MD at [facility] Other N/A: Back [employer] [id number] / / Description:1X ADD JM Dewayne Offset Implanted:Qty : 3 on 09/17/2023 by Dangelo Hopper MD at [facility] Other N/A: Back [employer] [id number] / / Description:1X ADD JM Rodrigo Std 3.2o056le [id number] - Sna Implanted:Qty : 1 on 05/04/2023 by Dangelo Hopper MD at [facility] Rodrigo N/A: Spine Cervical Posterior [employer]K [id number] / NA / NA Description:load # [id number] 704 sterilization date - April 28, 2023 Rodrigo Cdh Chromaloy+ 5.0p433sy Strt [id number] - Sn/A Implanted:Qty : 2 on 09/10/2023 by Dangelo Hopper MD at [facility] Rodrigo N/A: Spine Lumbar [employer] [id number] / N/A / N/A Description:Load # [id number] Sterile Date:09-07-2023 Rodrigo Std 3.4a653xx 7953455 - [id number] Implanted:Qty : 2 on 09/17/2023 by Dangelo Hopper MD at [facility] Rodrigo N/A: Back [employer] [id number] / / Description:LOAD# [id number] STERILIZED: 09/15/2023 Rodrigo Implanted:Qty : 2 on 09/17/2023 by Dangelo Hopper MD at [facility] Rodrigo N/A: Back [employer] [id number] / / [id number] Description:1X ADD JM Screw Transition 5.5x25mm Mas [id number] - Sna Implanted:Qty : 1 on 05/04/2023 by Dangelo Hopper MD at [facility] Screw N/A: Spine Cervical Posterior [employer] 12/08/2026 [id number] / NA / [id number] Screw Transition 5.5x25mm Mas [id number] - Sna Implanted:Qty : 1 on 05/04/2023 by Dangelo Hopper MD at [facility] Screw N/A: Spine Cervical Posterior [employer]K 03/10/2027 [id number] / NA / [id number] Screw Infinity Oc M6 [id number] - Sna Implanted:Qty : 13 on 05/04/2023 by Dangelo Hopper MD at [facility] Screw N/A: Spine Cervical Posterior [employer] [id number] / NA / NA Description:Load # [id number] sterilization date - April 28, 2023 Screw Infinity 4.5x22mm Mas [id number] - Sna Implanted:Qty : 5 on 05/04/2023 by Dangelo Hopper MD at [facility] Screw N/A: Spine Cervical Posterior [employer] [id number] / NA / NA Description:load # [id number] sterilization date - April 28, 2023 Screw Infinity 4.0x18mm Mas [id number] - Sna Implanted:Qty : 2 on 05/04/2023 by Dangelo Hopper MD at [facility] Screw N/A: Spine Cervical Posterior [employer] [id number] / NA / NA Description:load # [id number] 706 sterilization date - 2022 Screw Infinity 3.5x20mm Mas [id number] - Sna Implanted:Qty : 2 on 05/04/2023 by Dangelo Hopper MD at [facility] Screw N/A: Spine Cervical Posterior [employer] [id number] / NA / NA Description:load # [id number] 706 sterilization date - 2022 Screw Transition 5.5x30mm Mas [id number] - Sna Implanted:Qty : 1 on 05/04/2023 by Dangelo Hopper MD at [facility] Screw N/A: Spine Cervical Posterior [employer]K 12/26/2029 [id number] / NA / [id number] Screw Transition 5.5x25mm Mas [id number] - Sna Implanted:Qty : 1 on 05/04/2023 by Dangelo Hopper MD at [facility] Screw N/A: Spine Cervical Posterior [employer]ANEK 10/22/2029 [id number] / NA / [id number] Screw Cdh 5.0x30mm 5.5/6.0 Mas Cc [id number] - Sn/A Implanted:Qty : 4 on 09/10/2023 by Dangelo Hopper MD at [facility] Screw N/A: Back [employer]ANEK [id number] / N/A / N/A Description:Load # [id number] Sterile Date: 09-08-2023 Screw Cdh 4.5x30mm 5.5/6.0 Mas Cc [id number] - Sn/A Implanted:Qty : 2 on 09/10/2023 by Dangelo Hopper MD at [facility] N/A: Back [employer]ANEK [id number] / N/A / N/A Description:Load # [id number] Sterile Date: 09-08-2023 Screw Cdh 4.5x40mm 5.5/6.0 Mas Cc [id number] - Sn/A Implanted:Qty : 3 on 09/10/2023 by Dangelo Hopper MD at [facility] N/A: Back [employer] [id number] / N/A / N/A Description:Load # [id number] Sterile Date: 09-08-2023 Screw Cdh 5.0x40mm 5.5/6.0 Mas Cc [id number] - Sn/A Implanted:Qty : 5 on 09/10/2023 by Dangelo Hopper MD at [facility] N/A: Back [employer] [id number] / N/A / N/A Description:Load # [id number] Sterile Date: 09-08-2023 Screw Cdh 5.5x40mm 5.5/6.0 Mas Cc [id number] - Sn/A Implanted:Qty : 2 on 09/10/2023 by Dangelo Hopper MD at [facility] N/A: Back [employer] [id number] / N/A / N/A Description:Load # [id number] Sterile Date: 09-07-2023 Screw Cdh 5.5x50mm 5.5/6.0 Mas Cc [id number] - Sn/A Implanted:Qty : 2 on 09/10/2023 by Dangelo Hopper MD at [facility] N/A: Back [employer]ANE[employer] [id number] / N/A / N/A Description:Load # [id number] Sterile Date: 09-07-2023 Screw Cdh 6.5x45mm 5.5/6.0 Mas Cc [id number] - Sn/A Implanted:Qty : 4 on 09/10/2023 by Dangelo Hopper MD at [facility] N/A: Back [employer] [id number] / N/A / N/A Description:Load # [id number] Sterile Date: 09-07-2023 Screw Cdh 5.5x45mm 5.5/6.0 Mas Cc [id number] - Sn/A Implanted:Qty : 2 on 09/10/2023 by Dangelo Hopper MD at [facility] N/A: Back [employer] [id number] / N/A / N/A Description:Load # [id number] Sterile Date: 09-07-2023 Screw Cdh 7.5x50mm 5.5/6.0 Mas Cc [id number] - Sn/A Implanted:Qty : 1 on 09/10/2023 by Dangelo Hopper MD at [facility] N/A: Back [employer] [id number] / N/A / N/A Description:Load # [id number] Sterile Date: 09-07-2023 Screw Cdh 7.5x55mm 5.5/6.0 Mas Cc [id number] - Sn/A Implanted:Qty : 2 on 09/10/2023 by Dangelo Hopper MD at [facility] N/A: Back [employer] [id number] / N/A / N/A Description:Load # [id number] Sterile Date: 09-07-2023 Screw Cdh 7.5x45mm 5.5/6.0 Mas Cc [id number] - Sn/A Implanted:Qty : 1 on 09/10/2023 by Dangelo Hopper MD at [facility] N/A: Back [employer]ANEK [id number] / N/A / N/A Description:Load # [id number] Sterile Date: 09-07-2023 Screw Solera 5.5/6.0 Breakoff [id number] - Sn/A Implanted:Qty : 8 on 09/10/2023 by Dangelo Hopper MD at [facility] N/A: Spine Lumbar [employer] [id number] / N/A / N/A Description:Load # [id number] Sterile Date:09-07-2023 Screw Implanted:Qty : 2 on 09/10/2023 by Dangelo Hopper MD at [facility] Screw N/A: Spine Lumbar [employer] [id number] / / Description:1X ADD JM Screw Ti Std Break Off Solera St [id number] - [id number] Implanted:Qty : 1 on 09/17/2023 by Dangelo Hopper MD at [facility] Screw N/A: Back [employer]FAM[employer]ANEK [id number] / / Description:LOAD# [id number] STERILIZED: 09/13/2023 Screw Solera 5.5/6.0 Breakoff 4243051 - [id number] Implanted:Qty : 30 on 09/17/2023 by Dangelo Hopper MD at [facility] Screw N/A: Back [employer] SOF[employer]ANEK [id number] / / Description:LOAD# [id number] STERILIZED: 09/13/2023 Insurance RX MEDIMPACT Member Subscriber Plan / Payer (Ef fective 2015-Present) Name:Ivett Stephens Relation to Subscriber:Self Name:Ivett Stephens Payer ID:Not on file Group ID:[id number] Type:RX Medicare Part D Address: [address] Advance Directives For more information, please contact: [phone] * Full Code (Latest Code Status on File) Date Activated Date Inactivated Comments 09/10/2023 6:27 PM 09/25/2023 5:47 PM * Full Code Date Activated Date Inactivated Comments 05/29/2023 8:54 PM 06/05/2023 4:08 PM * Full Code Date Activated Date Inactivated Comments 05/04/2023 7:20 PM 05/09/2023 3:51 PM Care Teams Healthcare Customer Service Relationship Specialty Start Date End Date Jay Licea MD [address] [place] [phone] PCP - General Family Practice 02/19/23
--- OUTSIDE RECORDS SUMMARY | 2025-03-07 17:27 | XMS_ITS | Encounter Summary ---
Author Organization [facility] Address [address] [place] [address] Care Team Providers Care Cloth Bleaching Range Tender Name Role Phone Jay Licea MD Primary Care Provider Reason for Visit * Reason Onset Date Comments BACK SURGERY 09/15/2023 SPOKE WITH AKILAH / DR. MENDOZA OFFICE Encounter Details Date Type Department Care Team (Late st Contact Info) Description 09/15/2023 Telephone [facility] Admitting [address] [place] [address] Dangelo Hopper MD [address] [facility] [facility] [address] [place] [address] BACK SURGERY (SPOKE WITH AKILAH [...] PM CDT Legal Sex Female 6:06 AM MANAGER STRATEGIC ALLIANCES Gender Identity Female 04/15/2024 3:45 PM CDT Sexual Orientation Not on file documented as of this encounter Plan of Treatment Upcoming Encounters Date Type Department Care Team (Late st Contact Info) Description 10/15/2025 1:00 PM MANAGER STRATEGIC ALLIANCES Office Visit [facility] [address] [facility] [address] [place] [address] Dangelo Hopper MD [address] [facility] [address] [place] [address] documented as of this encounter Visit Diagnoses Not on filedocumented in this encounter Care Teams Cloth Bleaching Range Tender Relationship Specialty Start Date End Date Jay Licea MD [address] [place] [address] PCP - General Family Practice 02/19/23 documented as of this encounter
--- OUTSIDE RECORDS SUMMARY | 2025-03-07 17:27 | XMS_ITS | Clinical Summary ---
Author Organization [facility] Address [address] [place] [address] Care Team Providers Care Director Of Home Economics Name Role Phone Niyah Barth MD Primary Care Provider [phone] Source Comments [facility],non-owned Affiliates and Associated Physician Practices is amultiple site organization consisting of ambulatory clinics and hospital sitesin [place], [place], [place] and [place]. This disclosure is being madepursuant to the Care Everywhere program and may not contain all information available regarding this patient. Last updated 18.[facility] Allergies Active Allergy Reactions Criticality Noted Date [...] SCREENING 1950 LIPID TESTING 1950 MAMMOGRAM 1949 MEDICARE AWV 12 MONTHS 1949 HEPATITIS C SCREENING 02/28/1967 DTAP/TDAP/TD VACCINES (1 - Tdap) 1968 PNEUMOCOCCAL VACCINE 50+ (1 of 1 - PCV) 1999 ZOSTER VACCINE (1 of 2) 1999 Respiratory Syncytial Virus (RSV) Vaccine Pt: or over 60 yrs (1 - 1-dose 75+ series) 2024 COVID-19 VACCINE ( - 2023-2 5 season) 2024 DEPRESSION SCREENING 11/29/2024 MEDICARE AWV CALENDAR YEAR 2024 INFLUENZA VACCINE (Season Ended) 2025 HEPATITIS B VACCINE Aged Out No longe r eligible based on patient's age to complete this topic HIB VACCINE Aged Out No longer eligi ble based on patient's age to complete this topic HPV VACCINE Aged Out No longer eligi ble based on patient's age to complete this topic MENINGOCOCCAL (Group B) VACC INE SHARED DECISION-MAKING Aged Out No longer eligibl e based on patient's age to complete this topic MENINGOCOCCAL GROUPS A/C/Y/W VACCINE Aged Out No longer eligible b ased on patient's age to complete this topic Care Teams Director Of Home Economics Relationship Specialty Start Date End Date Niyah Barth MD [address] [place] [address] PCP - General 11/12/11
--- OUTSIDE RECORDS SUMMARY | 2025-03-07 17:27 | XMS_ITS | Clinical Summary ---
Author Organization [facility] Address [address] [place] [address] Care Team Providers Care Salesperson Wigs Name Role Phone Jay Licea MD Primary [...] 2 (two) times a day 1 Active lxdfirbq51-ynet-N mfolate-algal 27 mg iron-1.13 mg-581.92 mg capsule [...] (08/27/2022): Added automatically from request for surgery [id number] HTN (hypertension) 07/03/2020 Asthma 07/03/2020 Iron deficiency anemia 07/03/2020 Seizures 07/03/2020 Primary osteoarthritis of left hip 01/10/2020 Overview (01/10/2020): Added automatically from request for surgery [id number] Knee pain 06/14/2013 Nasal polyp 02/08/2013 MRSA (methicillin resistant Staphylococcus aureu s) 03/23/2012 Overview (08/26/2022): Sinuses Sinuses Allergic rhinitis 11/20/2011 Chronic sinusitis 11/20/2011 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/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 06/06/2009 Immunizations Immunization Administration Dates Next Due Moderna SARS-CoV-2 Monovalent [...] on file 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 Gender Identity Not on file Sexual Orientation [...] Health Maintenance Due Date Last Done Comments Hepatitis C Screening 1950 Osteoporosis Screening-Bone Density [...] 09/19/2021, 02/21/2021, Additional history exists Influenza Vaccine (Season Ended) 2025 10/14/2016, 10/28/2015, 09/27/2014, Additional history exists Medical Devices Implanted Type Area Heavy Coil Winder Device Identifier Shelf Expiration Date Model / Serial / Lot [employer] [id number] 54mm Limit 4 Hole Hip F Hemisphere Offset Shell Acetabular - S0 - [id number] Implanted:Qty : 1 on 07/05/2020 by Juwan Simms MD at [facility] Other - see comments Left: Hip [employer] [id number] 12/30/2029 [id number] / 0 / [id number] [employer] [id number] Taperloc Xr Series 142mm Press Fit Full Profile Hip 123d 11 Stem - S0 - [id number] Implanted:Qty : 1 on 07/05/2020 by Juwan Simms MD at [facility] Other - see comments Left: Hip [employer] [id number] 05/14/2029 [id number] / 0 / [id number] Liner Hip G7 Longevity 5mm 32mm D - [id number] Implanted:Qty : 1 on 07/05/2020 by Juwan Simms MD at [facility] Left: Hip [employer] [id number] 12/29/2024 [id number] / / [id number] [employer] [id number] G7 36mm Type 1 Modular Hip Acetabular +3mm Offset Head Femoral - [id number] Implanted:Qty : 1 on 07/05/2020 by Juwan Simms MD at [facility] Left: Hip [employer] 03/27/2030 [id number] / / [id number] Insurance [facility] [place] [address] [facility] Advance Directives For more information, please contact: [phone] * Full Code (Latest Code Status on File) Date Activated Date Inactivated Comments 07/05/2020 11:51 AM 07/06/2020 3:59 PM Care Teams Salesperson Wigs Relationship Specialty Start Date End Date Jay Licea MD PCP - General Family Practice 01/09/21
--- OUTSIDE RECORDS SUMMARY | 2025-03-07 17:27 | XMS_ITS | Continuity of Care Document ---
Author Organization [facility] Address [address] [facility] [address] [place] [phone] Phone Care Team Providers Care Slip Maker Name Role Phone Rosanne Regalado Unavailable Unavailable [...] Diagnoses Date Provider Providers Copied on Encounter [facility], [address] [place] [address] [address], [place], [place], [address], [place] tel:[phone] SEC [facility] No Information Oct-0 5-201 0 Regalado Rosanne. [address] , [address], [place], [place], [facility], [place]. tel:[phone] [facility], [address] [place] [address] [address], [place], [place], [address], [place] tel:[phone] [facility] No Information Sep-3 0-201 0 Regalado Rosanne. [address] , [address], [place], [facility], [place]. tel:[phone] [facility], [address], [place], [place], [address], [place] tel:[phone] [facility] No Information Jul-2 9-201 0 Regalado Rosanne. [address] , [address], [place], [facility], [place]. tel:[phone] [facility], [address] [place] [address] [address], [place], [place], [address], [place] tel:[phone] [facility] No Information 5-201 0 Regalado Rosanne. [address] , [address], [place], [facility], [place]. tel:[phone] [facility], [address] [place] [address] [address], [place], [place], [address], [place] tel:[phone] [facility] No Information 4-201 0 Regalado Rosanne. [address] , [address], [place], [facility], [place]. tel:[phone] [facility], [address], [place], [place], [address], [place] tel:[phone] SEC [facility] Corporate [place] No Information Chalino-2 3-201 0 Dotson OD John. [address] [facility] , [address], [place], [address], [place]. tel:[phone] [facility], [address], [place], [place], [address], [place] tel:[phone] [facility] No Information Apr-1 0-200 9 Dotson OD John. [address] , [address], [place], [address], [place]. tel:[phone] [facility], [address], [place], [place], [address], [place] tel:[phone] [facility] No Information Apr-0 7-200 9 [employer] . [address] [facility], [address], [place], [place], [address], [place]. tel:[phone] Referring Provider: John Dotson OD A, [address] [place], [place] [address]ate [address], [place], [address]. tel:[phone] g Provider: Sarah Saucedo, [address] [place], [address]. tel:[phone] [facility], [address], [place], [place], [address], [place] tel:[phone] [facility] No Information Mar-1 3-200 9 Dotson OD John. [facility] , [address], [place], [address], [place]. tel:[phone] [facility], [address], [place], [place], [address], [place] tel:[phone] [facility] [place] No Information Oct-1 0-200 8 Dotson OD John. [address] [facility] [address] , [address], [place], [address], [place]. tel:[phone] Referring Provider: John Dotson OD A, [facility] [address], [place], [address]. tel:[phone] [facility], [address] [place] [address] [address], [place], [place], [address], [place] tel:[phone] [facility] [place] No Information 3-200 8 [employer] . [address] [facility], [address], [place], [place], [address], [place]. tel:[phone] Referring Provider: John Dotson OD A, [address] [place], [place] [address]ate [address], [place], [address]. tel:[phone] garrido Provider: Yong Perez, [address] [place], [place] [address]ate [facility], [place], [address]. tel:[phone] Office/outpat ient Visit, Est [facility], [address] [place] [address] [address], [place], [place], [address], [place] tel:[phone] [facility] [place] No Information 9-200 8 Dotson OD John. [address] [place] [address] , [address], [place], [address], [place]. tel:[phone] [facility], [address], [place], [place], [address], [place] tel:[phone] [facility] [place] No Information 6-200 7 Dotson OD John. [address] [place] [address] Center , [address], [place], [address], [place]. tel:[phone] Referring Provider: John Dotson OD A, [address] [place], [place] [address] [address], [place], [address]. tel:[phone] [facility], [address] [place] [address] [address], [place], [place], [address], [place] tel:[phone] [facility] [place] No Information 3-200 7 Dotson OD John. [address] [place] [address] , [address], [place], [address], [place]. tel:[phone] Referring Provider: John Graves, [address] [place] [address] [address], [place], [facility]. tel:[phone] [facility], [address] [place] [address] [address], [place], [place], [address], [place] tel:[phone] [facility] No Information 0-200 7 [employer] . [address] [facility], [address], [place], [place], [address], [place]. tel:[phone] Referring Provider: John Graves, [address] [place] [address] [address], [place], [facility]. tel:[phone] g Provider: Yong Perez, [address] [place] [address], [place], [facility]. tel:[phone] [facility], [address] [place] [address] [address], [place], [place], [address], [place] tel:[phone] [facility] No Information 4200 7 Dotson OD John. [address] [place] [address] , [address], [place], [facility], [place]. tel:[phone] Family History Family Member Type Diagnosis Age [...]
--- OUTSIDE RECORDS SUMMARY | 2025-03-07 17:27 | XMS_ITS | Encounter Summary ---
Author Organization [facility] Address [address] [facility] [place] [address] Care Team Providers Care Healthcare Representative Name Role Phone Niyah Barth MD Primary Care Provider Encounter Details Date Type Department Care Team (Late st Contact Info) Description 08/31/2023 Lab Requisition [facility] - DermPath Lab [address] [facility], [place] [id number] Иван Umanzor MD [address] [place] [address] Social History Tobacco Use Types [...] AM CDT) Case Report Dermatopathology Report Case: [id number] Authorizing Provider: Иван Umanzor MD Collected: 08/30/2023 12:00 AM Ordering Location: [facility] DermPath Lab Received: 08/31/2023 04:22 PM Pathologist: Elab Cano MD Specimens: A) - Skin, right post shoulder superior B) - Skin, right post shoulder inferior 9:08 AM [facility] DERMATOPATHOLOGY LABORATORY Final Diagnosis Specimen A. SKIN, right post shoulder superior: SPONGIOTIC DERMATITIS WITH EOSINOPHILS (L30.8) EPIDERMAL NECROSIS SUGGESTIVE OF EXCORIATION (L98.499) (see microscopic description and comment) Specimen B. SKIN, right post shoulder inferior: SPONGIOTIC DERMATITIS WITH EOSINOPHILS (L30.8) EPIDERMAL NECROSIS SUGGESTIVE OF EXCORIATION (L98.499) (see microscopic description and comment) 9:08 AM [facility] DERMATOPATHOLOGY LABORATORY Clinical History A-B: [...] measuring 6x5x1 mm. Jar 0. 9:08 AM [facility] DERMATOPATHOLOGY LABORATORY Microscopic Description Specimen [...] characteristic determined by the Dermatopathology Laboratory at [facility], directed by Dr. Maxim Cano. These tests need not be, and therefore are not, approved by the [place] Food and Drug Administration. The tests are used for clinical purposes. Billing Codes Specimen Charges Stain Charges 47184 83084 1 1 3 9:08 AM CDT DERMATOPATHOLOGY LABORATORY Embedded Images 3 9:08 AM CDT DERMATOPATHOLOGY LABORATORY Pathology/Cytology TISSUE SPECIMEN FROM SKIN / Unknown 08/30/2023 08/31/2023 4:22 PM CDT Miscellaneous samples (specimen) TISSUE SPECIMEN FROM SKIN / Unknown 08/30/2023 08/31/2023 4:22 PM CDT Иван Umanzor MD LAB - PATHOLOGY/CYTO LOGY ORDERABLES DERMATOPATHOLOGY LABORATORY [facility] - Department of Dermatology [facility] Medicine [address] [place] [address], [address] [phone] documented in this encounter Visit Diagnoses Not on filedocumented in this encounter Care Teams Healthcare Representative Relationship Specialty Start Date End Date Niyah Barth MD [address] [place] [phone] PCP - General 11/12/11 documented as of this encounter
--- OUTSIDE RECORDS SUMMARY | 2025-03-07 17:27 | XMS_ITS | Encounter Summary ---
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
--- OUTSIDE RECORDS SUMMARY | 2025-03-07 17:27 | XMS_ITS | Referral Summary ---
Author Organization [facility] Address [address] [place] [address] Care Team Providers Care Tow Bar Driver Name Role Phone Jay Licea MD Primary [...] 2 (two) times a day 1 Active [id number] mfolate-algal 27 mg iron-1.13 mg-581.92 mg capsule [...] (08/27/2022): Added automatically from request for surgery [id number] HTN (hypertension) 07/03/2020 Asthma 07/03/2020 Iron deficiency anemia 07/03/2020 Seizures 07/03/2020 Primary osteoarthritis of left hip 01/10/2020 Overview (01/10/2020): Added automatically from request for surgery [id number] Knee pain 06/14/2013 Nasal polyp 02/08/2013 MRSA [...] on file 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 Gender Identity Not on file Sexual Orientation [...] on file Medical Devices Implanted Type Area Collar Trimmer Device Identifier Shelf Expiration Date Model / Serial / Lot [employer] [id number] 54mm Limit 4 Hole Hip F Hemisphere Offset Shell Acetabular - S0 - [id number] Implanted:Qty : 1 on 07/05/2020 by Juwan Simms MD at [facility] Other - see comments Left: Hip [employer] [id number] 12/30/2029 [id number] / 0 / [id number] [employer] [id number] Taperloc Xr Series 142mm Press Fit Full Profile Hip 123d 11 Stem - S0 - [id number] Implanted:Qty : 1 on 07/05/2020 by Juwan Simms MD at [facility] Other - see comments Left: Hip [employer] [id number] 05/14/2029 [id number] / 0 / [id number] Liner Hip G7 Longevity 5mm 32mm D - [id number] Implanted:Qty : 1 on 07/05/2020 by Juwan Simms MD at [facility] Left: Hip [employer] [id number] 12/29/[id number] / / [id number] [employer] 650-0662 G7 36mm Type 1 Modular Hip Acetabular +3mm Offset Head Femoral - [id number] Implanted:Qty : 1 on 07/05/2020 by Juwan Simms MD at [facility] Left: Hip [employer] 03/27/2030 [id number] / / [id number] Insurance [facility] [place] [address] HEALTHCARE Advance Directives For more information, please contact: [phone] * Full Code (Latest Code Status on File) Date Activated Date Inactivated Comments 07/05/2020 11:51 AM 07/06/2020 3:59 PM Care Teams Tow Bar Driver Relationship Specialty Start Date End Date Jay Licea MD PCP - General Family Practice 01/09/21
--- NOTE | 2025-03-07 17:29 | ECG_ITS ---
Test Date: 2025-03-07 17:41:29 Measurements Intervals [place] Rate: 65 P: 21 [place]: 223 QRS: -19 QRSD: 95 T: 36 QT: 391 QTc: 408 Interpretive Statements SINUS RHYTHM WITH FIRST DEGREE AV BLOCK CONSDIER INFERIOR INFARCT, AGE INDETERMINATE MODERATE T-WAVE ABNORMALITY, CONSIDER ANTERIOR ISCHEMIA BASELINE ARTIFACT- I, II, III, AVR, AVL, AVF, V5 ABNORMAL ECG No previous ECG available for comparison Electronically Signed On 03-08-2025 09:48:17 CDT by Scott Rae D.O.
[2025-03-07 17:34] VITALS: BP 156/92; PULSE 68; RESP 16; TEMP 36.4; O2SAT 99
[2025-03-07 17:53] LABS: Basophils Absolute Auto 0.1 K/mm3 (0.0-0.1); Basophils Percent Auto 0.6 % (0.2-1.2); Eosinophils Absolute Auto 0.3 K/mm3 (0-0.3); Eosinophils Percent Auto 2.6 % (0-4.4); Hematocrit 41.9 % (37.0-47.0); Hemoglobin 13.1 g/dL (12.0-15.0); Immature Granulocyte Absolute 0.04 K/mm3 (0.00-0.031); Immature Granulocyte Percent A 0.4 % (0-0.5); Lymphocytes Percent Auto 15.9 % (18.3-44.2); Mean Corpuscular HGB Conc 31.3 g/dl (32-36); Mean Corpuscular Hemoglobin 29.9 pg (26-34); Mean Corpuscular Volume 95.7 fl (80-100); Mean Platelet Volume 8.7 fl (7.4-10.4); Monocytes Absolute Auto 0.6 K/mm3 (0.1-0.6); Monocytes Percent Auto 6.1 % (2.6-8.5); Neutrophils Percent Auto 74.4 % (45.5-73.1); Platelet Count Result 297 k/mm3 (150-375); Red Blood Count 4.38 M/mm3 (4.2-5.4); Red Cell Distribution Width 15.3 % (11.5-14.5); White Blood Count 9.4 K/mm3 (4.5-10.0)
[2025-03-07 18:05] LABS: Alanine Aminotransferase 23 U/L (6-35); Albumin Level 4.5 g/dL (3.5-5.1); Alkaline Phosphatase 325 U/L (38-126); Anion Gap 11 mmol/L (4-12); Aspartate Amino Transferase 33 U/L (14-36); Bilirubin,Total 0.2 mg/dL (0.2-1.3); Blood Urea Nitrogen 20 mg/dL (7-17); Calcium 9.1 mg/dL (8.4-10.2); Carbon Dioxide 25 mmol/L (22-30); Chloride 104 mmol/L (98-107); Estimated CRCL calculation 43 ml/min; Estimated Glomerular Filt Rate 54; Glucose 127 mg/dL (65-110); Lipase 38 U/L (23-300); Potassium 4.9 mmol/L (3.4-5.0); Sodium 140 mmol/L (137-145)
[2025-03-07 18:08] LABS: INR 0.9; Prothrombin Time 12.8 Seconds (11.1-14.7)
[2025-03-07 18:09] LABS: Partial Thromboplastin Time 25.1 Seconds (22.3-36.8)
[2025-03-07 18:23] LABS: Troponin I < 0.012 ng/mL (0.000-0.034)
--- OUTSIDE RECORDS SUMMARY | 2025-03-07 22:20 | XMS_ITS | Encounter Summary ---
Author Organization [facility] Healthcare Address [address] [place] [address] Care Team Providers Care Litigation Secretary Name Role Phone Peg Daugherty MD Primary Care Provider Jay Licea MD Primary Care Provider Encounter Details Date Type Department Care Team (Late st Contact Info) Description 07/08/[address] 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
--- OUTSIDE RECORDS SUMMARY | 2025-03-07 22:20 | XMS_ITS | Continuity of Care Document ---
Author Organization [facility] [place] Address [address] [facility] [address] [place] [phone] Phone Care Team Providers Care Manager Athletics Name Role Phone Rosanne Regalado Unavailable Unavailable [...] Diagnoses Date Provider Providers Copied on Encounter [facility], [address] [place] [address] [address], [place], [place], [address], [place] tel:[phone] SEC [facility] No Information Oct-0 5-201 0 Regalado Rosanne. [address] , [address], [place], [place], [facility], [place]. tel:[phone] [facility], [address] [place] [address] [address], [place], [place], [address], [place] tel:[phone] [facility] No Information Sep-3 0-201 0 Regalado Rosanne. [address] , [address], [place], [facility], [place]. tel:[phone] [facility], [address], [place], [place], [address], [place] tel:[phone] [facility] No Information Jul-2 9-201 0 Regalado Rosanne. [address] , [address], [place], [facility], [place]. tel:[phone] [facility], [address] [place] [address] [address], [place], [place], [address], [place] tel:[phone] [facility] No Information 5-201 0 Regalado Rosanne. [address] , [address], [place], [facility], [place]. tel:[phone] [facility], [address] [place] [address] [address], [place], [place], [address], [place] tel:[phone] [facility] [address] [facility] No Information 4-201 0 Regalado Rosanne. [address] , [address], [place], [facility], [place]. tel:[phone] [facility] Eye [facility], [address], [place], [place], [address], [place] tel:[phone] SEC [facility] [place] No Information Chalino-2 3-201 0 Dotson OD John. [address] [facility] , [address], [place], [address], [place]. tel:[phone] [facility] Eye [facility], [address], [place], [place], [address], [place] tel:[phone] SEC [facility] No Information Apr-1 0-200 9 Dotson OD John. [address] , [address], [place], [address], [place]. tel:[phone] [facility] Eye [facility], [address], [place], [place], [address], [place] tel:[phone] SEC [facility] No Information Apr-0 7-200 9 [employer] . [address] [facility], [address], [place], [place], [address], [place]. tel:[phone] Referring Provider: John Dotson OD A, [address] [place], [place] [address]ate [address], [place], [address]. tel:[phone] g Provider: Sarah Saucedo, [address] [place], [address]. tel:[phone] [facility] Eye [facility], [address], [place], [place], [address], [place] tel:[phone] SEC [facility] No Information Mar-1 3-200 9 Dotson OD John. [facility] , [address], [place], [address], [place]. tel:[phone] [facility] Eye [facility], [address], [place], [place], [address], [place] tel:[phone] [facility] No Information Oct-1 0-200 8 Dotson OD John. [address] [facility] , [address], [place], [address], [place]. tel:[phone] Referring Provider: John Dotson OD A, [facility] [address], [place], [address]. tel:[phone] [facility] Eye [facility], [address] [place] [address] [address], [place], [place], [address], [place] tel:[phone] [facility] No Information 3-200 8 [employer] . [address] [facility], [address], [place], [place], [address], [place]. tel:[phone] Referring Provider: John Dotson OD A, [address] [place], [place] [address]ate [address], [place], [address]. tel:[phone] garrido Provider: Yong Perez, [address] [place], [place] [address]ate [facility], [place], [address]. tel:[phone] Office/outpat ient Visit, Est [facility], [address] [place] [address] [address], [place], [place], [address], [place] tel:[phone] [facility] No Information 9-200 8 Dotson OD John. [address] [place] [address] , [address], [place], [address], [place]. tel:[phone] [facility] Eye [facility], [address], [place], [place], [address], [place] tel:[phone] [facility] No Information 6-200 7 Dotson OD John. [address] [place] [address] Center , [address], [place], [address], [place]. tel:[phone] Referring Provider: John Dotson OD A, [address] [place], [place] [address], [place], [address]. tel:[phone] [facility] Eye [facility], [address] [place] [address] [address], [place], [place], [address], [place] tel:[phone] [facility] No Information 3-200 7 Dotson OD John. [address] [place] [address] , [address], [place], [address], [place]. tel:[phone] Referring Provider: John Graves, [address] [place] [address] [address], [place], [facility]. tel:[phone] [facility] Eye [facility], [address] [place] [address] [address], [place], [place], [address], [place] tel:[phone] [facility] No Information 0-200 7 [employer] . [address] [facility], [address], [place], [place], [address], [place]. tel:[phone] Referring Provider: John Graves, [address] [place] [address] [address], [place], [place], [facility]. tel:[phone] g Provider: Yong Perez, [address] [place] [address], [place], [facility]. tel:[phone] [facility] Eye [facility], [address] [place] [address] [address], [place], [place], [address], [place] tel:[phone] [facility] No Information 4200 7 Dotson OD John. [address] [place] [address] , [address], [place], [facility], [place]. tel:[phone] Family History Family Member Type Diagnosis Age At Onset No Information Payers Payer name Insurance type Covered alliance party ID Authoriza tion(s) No Information Social History [...]
--- OUTSIDE RECORDS SUMMARY | 2025-03-07 22:20 | XMS_ITS | Encounter Summary ---
Author Organization [facility] Address [address] [place] [address] Care Team Providers Care Electroplating Technician Name Role Phone Jay Licea MD Primary Care Provider Reason for Visit * Reason Onset Date Comments BACK SURGERY 09/15/2023 SPOKE WITH AKILAH / DR. 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 Gender Identity Female 04/15/2024 3:45 PM CDT Sexual Orientation Not on file documented as of this encounter Plan of Treatment Upcoming Encounters Date Type Department Care Team (Late st Contact Info) Description 10/15/2025 1:00 PM SENIOR INFORMATICA ETL DEVELOPER Office Visit [facility] [address] [facility] [address] [facility] [address] [place] [address] Dangelo Hopper MD [address] [facility] [address] [place] [address] documented as of this encounter Visit Diagnoses Not on filedocumented in this encounter Care Teams Electroplating Technician Relationship Specialty Start Date End Date Jay Licea MD [address] [place] [address] PCP - General Family Practice 02/19/23 documented as of this encounter
--- OUTSIDE RECORDS SUMMARY | 2025-03-07 22:20 | XMS_ITS | Encounter Summary ---
Author Organization [facility] Address [address] [facility] [place] [address] Care Team Providers Care Heel Dipper Name Role Phone Niyah Barth MD Primary Care Provider Encounter Details Date Type Department Care Team (Late st Contact Info) Description 08/31/2023 Lab Requisition [facility] - DermPath Lab [address] [facility], [place] [id number] Иван Umanzor MD [address] [place] [address] Social History Tobacco Use Types [...] AM CDT) Case Report Dermatopathology Report Case: [id number] Authorizing Provider: Иван Umanzor MD Collected: 08/30/2023 12:00 AM Ordering Location: [facility] DermPath Lab Received: 08/31/2023 04:22 PM Pathologist: Elba Cano MD Specimens: A) - Skin, right post shoulder superior B) - Skin, right post shoulder inferior 9:08 AM [facility] DERMATOPATHOLOGY [facility]ORATORY Final Diagnosis Specimen A. SKIN, right post shoulder superior: SPONGIOTIC DERMATITIS WITH EOSINOPHILS (L30.8) EPIDERMAL NECROSIS SUGGESTIVE OF EXCORIATION (L98.499) (see microscopic description and comment) Specimen B. SKIN, right post shoulder inferior: SPONGIOTIC DERMATITIS WITH EOSINOPHILS (L30.8) EPIDERMAL NECROSIS SUGGESTIVE OF EXCORIATION (L98.499) (see microscopic description and comment) 9:08 AM [facility] DERMATOPATHOLOGY [facility]ORATORY Clinical History A-B: R/O Drug [...] measuring 6x5x1 mm. Jar 0. 9:08 AM [facility] DERMATOPATHOLOGY [facility]ORAT[facility] Microscopic Description Specimen A. SKIN, [...] characteristic determined by the Dermatopathology Laboratory at [facility], directed by Dr. Maxim Cano. These tests need not be, and therefore are not, approved by the [place] Food and Drug Administration. The tests are used for clinical purposes. Billing Codes Specimen Charges Stain Charges 75966 70460 1 1 3 9:08 AM CDT DERMATOPATHOLOGY LABORATORY Embedded Images 3 9:08 AM CDT DERMATOPATHOLOGY LABORATORY Pathology/Cytology TISSUE SPECIMEN FROM SKIN / Unknown 08/30/2023 08/31/2023 4:22 PM CDT Miscellaneous samples (specimen) TISSUE SPECIMEN FROM SKIN / Unknown 08/30/2023 08/31/2023 4:22 PM CDT Иван Umanzor MD LAB - PATHOLOGY/CYTO LOGY ORDERABLES DERMATOPATHOLOGY LABORATORY [facility] - Department of Dermatology [facility] Medicine [address] [place] [address], [address] [phone] documented in this encounter Visit Diagnoses Not on filedocumented in this encounter Care Teams Heel Dipper Relationship Specialty Start Date End Date Niyah Barth MD [address] [place] [phone] PCP - General 11/12/11 documented as of this encounter
--- OUTSIDE RECORDS SUMMARY | 2025-03-07 22:20 | XMS_ITS | Referral Summary ---
Author Organization [facility] Address [address] [place] [address] Care Team Providers Care Dermatology Teacher Name Role Phone Jay Licea MD Primary [...] 2 (two) times a day 1 Active [id number]-oewt-A mfolate-algal 27 mg iron-1.13 mg-581.92 mg capsule [...] (08/27/2022): Added automatically from request for surgery [id number] HTN (hypertension) 07/03/2020 Asthma 07/03/2020 Iron deficiency anemia 07/03/2020 Seizures 07/03/2020 Primary osteoarthritis of left hip 01/10/2020 Overview (01/10/2020): Added automatically from request for surgery [id number] Knee pain 06/14/2013 Nasal polyp 02/08/2013 MRSA [...] on file Legal 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 Gender Identity Not on file Sexual Orientation [...] on file Medical Devices Implanted Type Area Child Custody Evaluator Device Identifier Shelf Expiration Date Model / Serial / Lot Minesh [employer] [id number] 54mm Limit 4 Hole Hip F Hemisphere Offset Shell Acetabular - S0 - [id number] Implanted:Qty : 1 on 07/05/2020 by Juwan Simms MD at [facility] Other - see comments Left: Hip [employer] [id number] 12/30/2029 [id number] / 0 / [id number] [employer] [id number] Taperloc Xr Series 142mm Press Fit Full Profile Hip 123d 11 Stem - S0 - [id number] Implanted:Qty : 1 on 07/05/2020 by Juwan Simms MD at [facility] Other - see comments Left: Hip [employer] [id number] 05/14/2029 [id number] / 0 / [id number] Liner Hip G7 Longevity 5mm 32mm D - [id number] Implanted:Qty : 1 on 07/05/2020 by Juwan Simms MD at [facility] Left: Hip [employer] [id number] 12/29/[id number] / / [id number] M[employer] 650-0662 G7 36mm Type 1 Modular Hip Acetabular +3mm Offset Head Femoral - [id number] Implanted:Qty : 1 on 07/05/2020 by Juwan Simms MD at [facility] Left: Hip [employer] 03/27/2030 [id number] / / [id number] Insurance [facility] [place] [address] HEALTHCARE Advance Directives For more information, please contact: [phone] * Full Code (Latest Code Status on File) Date Activated Date Inactivated Comments 07/05/2020 11:51 AM 07/06/2020 3:59 PM Care Teams Dermatology Teacher Relationship Specialty Start Date End Date Jay Licea MD PCP - General Family Practice 01/09/21
--- OUTSIDE RECORDS SUMMARY | 2025-03-07 22:20 | XMS_ITS | Clinical Summary ---
Author Organization [facility] Address [address] [facility] [place] [address] Care Team Providers Care Clinical Staff Pharmacist Name Role Phone Niyah Barth MD Primary Care Provider Source Comments [facility],non-owned Affiliates and Associated Physician Practices is amultiple site organization consisting of ambulatory clinics and hospital sitesin [place], [place], [place] and [place]. This disclosure is being madepursuant to the Care Everywhere program and may not contain all information available regarding this patient. Last updated 18.[facility] Allergies Active Allergy Reactions Criticality Noted Date [...] age to complete this topic Care Teams Clinical Staff Pharmacist Relationship Specialty Start Date End Date Niyah Barth MD [address] [place] [phone] PCP - General 11/12/11
--- OUTSIDE RECORDS SUMMARY | 2025-03-07 22:20 | XMS_ITS | Clinical Summary ---
Author Organization [facility] Address [address] [place] [address] Care Team Providers Care Site Supervisor Name Role Phone Jay Licea MD Primary [...] 2 (two) times a day 1 Active vhsyjpcm04-miim-G mfolate-algal 27 mg iron-1.13 mg-581.92 mg capsule [...] (08/27/2022): Added automatically from request for surgery [id number] HTN (hypertension) 07/03/2020 Asthma 07/03/2020 Iron deficiency anemia 07/03/2020 Seizures 07/03/2020 Primary osteoarthritis of left hip 01/10/2020 Overview (01/10/2020): Added automatically from request for surgery [id number] Knee pain 06/14/2013 Nasal polyp 02/08/2013 MRSA [...] on file 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 Gender Identity Not on file Sexual Orientation [...] history exists Medical Devices Implanted Type Area Tow Truck Driver Device Identifier Shelf Expiration Date Model / Serial / Lot M[employer]h [employer] [id number] 54mm Limit 4 Hole Hip F Hemisphere Offset Shell Acetabular - S0 - [id number] Implanted:Qty : 1 on 07/05/2020 by Juwan Simms MD at [facility] Other - see comments Left: Hip [employer] [id number] 12/30/2029 [id number] / 0 / [id number] [employer] [id number] Taperloc Xr Series 142mm Press Fit Full Profile Hip 123d 11 Stem - S0 - [id number] Implanted:Qty : 1 on 07/05/2020 by Juwan Simms MD at [facility] Other - see comments Left: Hip [employer] [id number] 05/14/2029 [id number] / 0 / [id number] Liner Hip G7 Longevity 5mm 32mm D - [id number] Implanted:Qty : 1 on 07/05/2020 by Juwan Simms MD at [facility] Left: Hip [employer] [id number] 12/29/2024 [id number] / / [id number] M[employer] [id number] G7 36mm Type 1 Modular Hip Acetabular +3mm Offset Head Femoral - [id number] Implanted:Qty : 1 on 07/05/2020 by Juwan Simms MD at [facility] Left: Hip [employer] 03/27/2030 [id number] / / [id number] Insurance [facility] [place] [address] [facility] Advance Directives For more information, please contact: [phone] * Full Code (Latest Code Status on File) Date Activated Date Inactivated Comments 07/05/2020 11:51 AM 07/06/2020 3:59 PM Care Teams Site Supervisor Relationship Specialty Start Date End Date Jay Licea MD PCP - General Family Practice 01/09/21
--- OUTSIDE RECORDS SUMMARY | 2025-03-07 22:21 | XMS_ITS | Clinical Summary ---
Author Organization [facility] Address [address] [place] [address] Phone Care Team Providers Care Assistant To The Dean Name Role Phone Jay Licea MD Primary [...] Tablet 3 Active naloxone (NARCAN) 4 mg/spray [place], Non-Aerosol EMERGENCY USE ONLY: Administer 1 spray [...] (05/05/2023): Added automatically from request for surgery [id number] HTN (hypertension) 07/03/2020 Iron deficiency anemia 07/03/2020 [...] PM CDT Legal Sex Female 6:06 AM IMPORT CUSTOMER SERVICE MANAGER Gender Identity Female 04/15/2024 3:45 PM CDT Sexual Orientation Not on file Last Filed Vital Signs Vital Sign Reading Time Taken Comments Blood Pressure 109/68 10/16/2024 1:03 PM IMPORT CUSTOMER SERVICE MANAGER Pulse 74 10/16/2024 1:03 PM IMPORT CUSTOMER SERVICE MANAGER Temperature 37 C (98.6 F) 10/16/2024 1:03 PM IMPORT CUSTOMER SERVICE MANAGER Respiratory Rate 16 10/16/2024 1:03 PM IMPORT CUSTOMER SERVICE MANAGER Oxygen Saturation 93% 10/16/2024 1:03 PM IMPORT CUSTOMER SERVICE MANAGER Inhaled Oxygen Concentration - - Weight 74.8 kg (165 lb) 10/16/2024 1:03 PM IMPORT CUSTOMER SERVICE MANAGER Height 162.6 cm (5' 4 ) 10/16/2024 1:03 PM IMPORT CUSTOMER SERVICE MANAGER Body Mass Index 28.32 10/16/2024 1:03 PM IMPORT CUSTOMER SERVICE MANAGER Plan of Treatment Upcoming Encounters Date Type Department Care Team (Late st Contact Info) Description 10/15/2025 1:00 PM IMPORT CUSTOMER SERVICE MANAGER Office Visit [facility] Neurosurgery [address] [facility] [address] [facility] [address] [place] [address] Dangelo Hopper MD [address] [facility] [address] [place] [address] Health Maintenance Due Date Last [...] INFLUENZA VACCINE (#1) 2024 10/14/2016 [place] Prev entative Visit/Annual Wellness Visit 11/29/2024 Medical Devices Implanted Type Area Dipper Fish Device Identifier Shelf Expiration Date Model / Serial / Lot Sealant Duraseal 5ml - [id number] Implanted:Qty : 1 on 09/17/2023 by Dangelo Hopper MD at [facility] Biological N/A: Back [employer] KAY 08/01/2024 / / [id number] Spacer Catalyft Pl 7mm Xpndble Strt [id number] - Sna Implanted:Qty : 1 on 09/10/2023 by Dangelo Hopper MD at [facility] Cage N/A: Spine Lumbar [employer]- SOFAMOR DANEK 08/18/2031 [id number] / NA / [id number] Duragen + 1x1in Dp-1011 - [id number] Implanted:Qty : 1 on 09/17/2023 by Dangelo Hopper MD at [facility] Graft N/A: Back [employer] 12/29/2025 [id number] / / [id number] Description:CHECKED BY NORMA Hemostatic Surgiflo 8ml W/ Thrombin 2994 - Sna Implanted:Qty : 1 on 05/04/2023 by Dangelo Hopper MD at [facility] Hemostatic N/A: Spine Cervical Posterior J&J- ETHICON INC 05/28/2024 2994 / NA / [id number] Hemostatic Surgiflo 8ml W/ Thrombin 2994 - Sna Implanted:Qty : 1 on 05/04/2023 by Dangelo Hopper MD at [facility] Hemostatic N/A: Spine Cervical Posterior J&J- [employer] 12/29/2023 2994 / NA / [id number] Hemostatic Surgiflo 8ml W/ Thrombin 2994 - Sna Implanted:Qty : 1 on 05/04/2023 by Dangelo Hopper MD at [facility] Hemostatic N/A: Spine Cervical Posterior J&J- [employer] 12/29/2023 2994 / NA / [id number] Hemostatic Surgiflo 8ml W/ Thrombin 2994 - [id number] Implanted:Qty : 1 on 09/10/2023 by Dangelo Hopper MD at [facility] Hemostatic N/A: Back J&J- [employer] 12/29/2024 2994 / / [id number] Hemostatic Surgiflo 8ml W/ Thrombin 2994 - [id number] Implanted:Qty : 1 on 09/10/2023 by Dangelo Hopper MD at [facility] Hemostatic N/A: Back J&J- [employer] 12/29/2024 2994 / / [id number] Hemostatic Surgiflo 8ml W/ Thrombin 2994 - [id number] Implanted:Qty : 1 on 09/17/2023 by Dangelo Hopper MD at [facility] Hemostatic N/A: Back J&J- [employer] 12/29/2024 2994 / / [id number] Hemostatic Surgiflo 8ml W/ Thrombin 2994 - [id number] Implanted:Qty : 1 on 09/17/2023 by Dangelo Hopper MD at [facility] Hemostatic N/A: Back J&J- [employer] 12/29/2024 2994 / / [id number] Connector Implanted:Qty : 1 on 09/17/2023 by Dangelo Hopper MD at [facility] Other N/A: Back [employer] INC [id number] / / Description:1X ADD ZAIDA Dewayne Offset Implanted:Qty : 2 on 09/17/2023 by Dangelo Hopper MD at [facility] Other N/A: Back [employer] INC [id number] / / Description:1X ADD JM Dewayne Offset Implanted:Qty : 3 on 09/17/2023 by Dangelo Hopper MD at [facility] Other N/A: Back [employer] [id number] / / Description:1X ADD JM Rodrigo Std 3.2a968do [id number] - Sna Implanted:Qty : 1 on 05/04/2023 by Dangelo Hopper MD at [facility] Rodrigo N/A: Spine Cervical Posterior [employer] SOFAMOR DANEK [id number] / NA / NA Description:load # [id number] sterilization date - April 28, 2023 Rodrigo Cdh Chromaloy+ 5.3g471er Strt [id number] - Sn/A Implanted:Qty : 2 on 09/10/2023 by Dangelo Hopper MD at [facility] Rodrigo N/A: Spine Lumbar [employer]K [id number] / N/A / N/A Description:Load # [id number] Sterile Date:09-07-2023 Rodrigo Std 3.4l305bq [id number] - [id number] Implanted:Qty : 2 on 09/17/2023 by Dangelo Hopper MD at [facility] Rodrigo N/A: Back [employer]ANEK [id number] / / Description:LOAD# [id number] STERILIZED: 09/15/2023 Rodrigo Implanted:Qty : 2 on 09/17/2023 by Dangelo Hopper MD at [facility] Rodrigo N/A: Back [employer] [id number] / / [id number] Description:1X ADD JM Screw Transition 5.5x25mm Mas [id number] - Sna Implanted:Qty : 1 on 05/04/2023 by Dangelo Hopper MD at [facility] Screw N/A: Spine Cervical Posterior [employer] SOFAMOR DANEK 12/08/2026 [id number] / NA / [id number] Screw Transition 5.5x25mm Mas [id number] - Sna Implanted:Qty : 1 on 05/04/2023 by Dangelo Hopper MD at [facility] Screw N/A: Spine Cervical Posterior [employer] SOFAMOR DANEK 03/10/2027 [id number] / NA / [id number] Set Screw Infinity Oc M6 [id number] - Sna Implanted:Qty : 13 on 05/04/2023 by Dangelo Hopper MD at [facility] Screw N/A: Spine Cervical Posterior [employer]K [id number] / NA / NA Description:Load # [id number] sterilization date - April 28, 2023 Screw Infinity 4.5x22mm Mas [id number] - Sna Implanted:Qty : 5 on 05/04/2023 by Dangelo Hopper MD at [facility] Screw N/A: Spine Cervical Posterior [employer]ANEK [id number] / NA / NA Description:load # [id number] 605 sterilization date - April 28, 2023 Screw Infinity 4.0x18mm Mas [id number] - Sna Implanted:Qty : 2 on 05/04/2023 by Dangelo Hopper MD at [facility] Screw N/A: Spine Cervical Posterior [employer] [id number] / NA / NA Description:load # [id number] 706 sterilization date - 2022 Screw Infinity 3.5x20mm Mas [id number] - Sna Implanted:Qty : 2 on 05/04/2023 by Dangelo Hopper MD at [facility] Screw N/A: Spine Cervical Posterior [employer] [id number] / NA / NA Description:load # [id number] 706 sterilization date - 2022 Screw Transition 5.5x30mm Mas [id number] - Sna Implanted:Qty : 1 on 05/04/2023 by Dangelo Hopper MD at [facility] Screw N/A: Spine Cervical Posterior [employer]K 12/26/2029 [id number] / NA / [id number] Screw Transition 5.5x25mm Mas [id number] - Sna Implanted:Qty : 1 on 05/04/2023 by Dangelo Hopper MD at [facility] Screw N/A: Spine Cervical Posterior [employer]K 10/22/2029 [id number] / NA / [id number] Screw Cdh 5.0x30mm 5.5/6.0 Mas Cc [id number] - Sn/A Implanted:Qty : 4 on 09/10/2023 by Dangelo Hopper MD at [facility] Screw N/A: Back [employer] [id number] / N/A / N/A Description:Load # [id number] Sterile Date: 09-08-2023 Screw Cdh 4.5x30mm 5.5/6.0 Mas Cc [id number] - Sn/A Implanted:Qty : 2 on 09/10/2023 by Dangelo Hopper MD at [facility] N/A: Back [employer] [id number] / N/A / N/A Description:Load # [id number] Sterile Date: 09-08-2023 Screw Cdh 4.5x40mm 5.5/6.0 Mas Cc [id number] - Sn/A Implanted:Qty : 3 on 09/10/2023 by Dangelo Hopper MD at [facility] N/A: Back [employer] [id number] / N/A / N/A Description:Load # [id number] Sterile Date: 09-08-2023 Screw Cdh 5.0x40mm 5.5/6.0 Mas Cc [id number] - Sn/A Implanted:Qty : 5 on 09/10/2023 by Dangelo Hopper MD at [facility] N/A: Back [employer] [id number] / N/A / N/A Description:Load # [id number] Sterile Date: 09-08-2023 Screw Cdh 5.5x40mm 5.5/6.0 Mas Cc [id number] - Sn/A Implanted:Qty : 2 on 09/10/2023 by Dangelo Hopper MD at [facility] N/A: Back [employer] [id number] / N/A / N/A Description:Load # [id number] Sterile Date: 09-07-2023 Screw Cdh 5.5x50mm 5.5/6.0 Mas Cc [id number] - Sn/A Implanted:Qty : 2 on 09/10/2023 by Dangelo Hopper MD at [facility] N/A: Back [employer] [id number] / N/A / N/A Description:Load # [id number] Sterile Date: 09-07-2023 Screw Cdh 6.5x45mm 5.5/6.0 Mas Cc [id number] - Sn/A Implanted:Qty : 4 on 09/10/2023 by Dangelo Hopper MD at [facility] N/A: Back [employer] [id number] / N/A / N/A Description:Load # [id number] Sterile Date: 09-07-2023 Screw Cdh 5.5x45mm 5.5/6.0 Mas Cc [id number] - Sn/A Implanted:Qty : 2 on 09/10/2023 by Dangelo Hopper MD at [facility] N/A: Back [employer]K [id number] / N/A / N/A Description:Load # [id number] Sterile Date: 09-07-2023 Screw Cdh 7.5x50mm 5.5/6.0 Mas Cc [id number] - Sn/A Implanted:Qty : 1 on 09/10/2023 by Dangelo Hopper MD at [facility] N/A: Back [employer] [id number] / N/A / N/A Description:Load # [id number] Sterile Date: 09-07-2023 Screw Cdh 7.5x55mm 5.5/6.0 Mas Cc [id number] - Sn/A Implanted:Qty : 2 on 09/10/2023 by Dangelo Hopper MD at [facility] N/A: Back [employer] [id number] / N/A / N/A Description:Load # [id number] Sterile Date: 09-07-2023 Screw Cdh 7.5x45mm 5.5/6.0 Mas Cc [id number] - Sn/A Implanted:Qty : 1 on 09/10/2023 by Dangelo Hopper MD at [facility] N/A: Back [employer] [id number] / N/A / N/A Description:Load # [id number] Sterile Date: 09-07-2023 Screw Solera 5.5/6.0 Breakoff [id number] - Sn/A Implanted:Qty : 8 on 09/10/2023 by Dangelo Hopper MD at [facility] N/A: Spine Lumbar [employer] SOF[employer]ANEK [id number] / N/A / N/A Description:Load # [id number] Sterile Date:09-07-2023 Screw Implanted:Qty : 2 on 09/10/2023 by Dangelo Hopper MD at [facility] Screw N/A: Spine Lumbar [employer] [id number] / / Description:1X ADD JM Screw Ti Std Break Off Solera St [id number] - [id number] Implanted:Qty : 1 on 09/17/2023 by Dangelo Hopper MD at [facility] Screw N/A: Back [employer] [id number] / / Description:LOAD# [id number] STERILIZED: 09/13/2023 Screw Solera 5.5/6.0 Breakoff [id number] - [id number] Implanted:Qty : 30 on 09/17/2023 by Dangelo Hopper MD at [facility] Screw N/A: Back [employer] SOFAMOR DANEK [id number] / / Description:LOAD# [id number] STERILIZED: 09/13/2023 Insurance RX MEDIMPACT Member Subscriber Plan / Payer (Ef fective 2015-Present) Name:Ivett Stephens Relation to Subscriber:Self Name:Ivett Stephens Payer ID:Not on file Group ID:[id number] Type:RX Medicare Part D Address: [address] Advance Directives For more information, please contact: [phone] * Full Code (Latest Code Status on File) Date Activated Date Inactivated Comments 09/10/2023 6:27 PM 09/25/2023 5:47 PM * Full Code Date Activated Date Inactivated Comments 05/29/2023 8:54 PM 06/05/2023 4:08 PM * Full Code Date Activated Date Inactivated Comments 05/04/2023 7:20 PM 05/09/2023 3:51 PM Care Teams Assistant To The Dean Relationship Specialty Start Date End Date Jay Licea MD [address] [place] [id number] PCP - General Family Practice 02/19/23
== END 2025-03-07 18:00 | disposition left against medical advice (07) ==
PROVIDERS: Emergency Provider Emergency Medicine; PCP Family Medicine
DX: R06.02 Shortness of breath (principal)
CPT/HCPCS: 36415; 71046; 80053; 83690; 84484; 85025; 85610; 85730; 93005; 99199

== ENCOUNTER 2025-03-26 12:28 | Outpatient (CLI) | payer MEDICARE, SELFPAY ==
[2025-03-26 13:24] LABS: Phenytoin Dilantin 12 ug/mL (10-20)
--- OUTSIDE RECORDS SUMMARY | 2025-03-26 14:06 | XMS_ITS | Clinical Summary ---
Author Organization [facility] [email or web address] Address [address] [place] [address] Care Team Providers Care Product Development Ecologist Name Role Phone Niyah Barth MD Primary Care Provider Source Comments [facility] [email or web address],non-owned Affiliates and Associated Physician Practices is amultiple site organization consisting of ambulatory clinics and hospital sitesin [place], [place], [place] and [place]. This disclosure is being madepursuant to the Care Everywhere program and may not contain all information available regarding this patient. 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 Gender Identity Not on file Sexual Orientation [...] Last Done Comments BONE DENSITY TESTING 1950 MEDICARE AWV 12 MONTHS 1950 HEPATITIS C SCREENING 02/28/1967 DTAP/TDAP/TD VACCINES (1 - Tdap) 1968 PNEUMOCOCCAL VACCINE 50+ (1 of 1 - PCV) 1999 ZOSTER VACCINE (1 of 2) 1999 Respiratory Syncytial Virus (RSV) Vaccine Pt: or over 60 yrs (1 - 1-dose 75+ series) 2024 COVID-19 VACCINE ( - 2023-2 5 season) 2024 DEPRESSION SCREENING 11/29/2024 INFLUENZA VACCINE (Season Ended) 2025 HEPATITIS B [...] on patient's age to complete this topic Insurance [facility] MEDICARE [employer] MEDICARE Care Teams Product Development Ecologist Relationship Specialty Start Date End Date Niyah Barth MD [address] [place] [address] [address] [place] [phone] PCP - General 11/12/11
--- OUTSIDE RECORDS SUMMARY | 2025-03-26 14:06 | XMS_ITS | Encounter Summary ---
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
--- OUTSIDE RECORDS SUMMARY | 2025-03-26 14:06 | XMS_ITS | Encounter Summary ---
Author Organization [facility] Address [address] [place] [address] Care Team Providers Care Curer Acid Drum Name Role Phone Jay Licea MD Primary Care Provider Reason for Visit * Reason Onset Date Comments BACK SURGERY 09/15/2023 SPOKE WITH AKILAH / DR. MENDOZA OFFICE Encounter Details Date Type Department Care Team (Late st Contact Info) Description 09/15/2023 Telephone [facility] Admitting [address] [place] [address] Dangelo Hopper MD [address] [facility] [address] [place] [address] BACK SURGERY (SPOKE WITH AKILAH [...] PM CDT Legal Sex Female 6:06 AM COOKER SODA Gender Identity Female 04/15/2024 3:45 PM CDT Sexual Orientation Not on file documented as of this encounter Plan of Treatment Upcoming Encounters Date Type Department Care Team (Late st Contact Info) Description 10/15/2025 1:00 PM COOKER SODA Office Visit [facility] [address] [facility] [address] [facility] [address] [place] [address] Dangelo Hopper MD [address] [facility] [address] [place] [address] documented as of this encounter Visit Diagnoses Not on filedocumented in this encounter Care Teams Curer Acid Drum Relationship Specialty Start Date End Date Jay Licea MD [address] [place] [phone] PCP - General Family Practice 02/19/23 documented as of this encounter
--- OUTSIDE RECORDS SUMMARY | 2025-03-26 14:06 | XMS_ITS | Referral Summary ---
Author Organization [facility] Address [address] [place] [address] Care Team Providers Care Pineapple Plantation Manager Name Role Phone Jay Licea MD Primary [...] 2 (two) times a day 1 Active [id number]-xydm-O mfolate-algal 27 mg iron-1.13 mg-581.92 mg capsule [...] (08/27/2022): Added automatically from request for surgery [id number] HTN (hypertension) 07/03/2020 Asthma 07/03/2020 Iron deficiency anemia 07/03/2020 Seizures 07/03/2020 Primary osteoarthritis of left hip 01/10/2020 Overview (01/10/2020): Added automatically from request for surgery [id number] Knee pain 06/14/2013 Nasal polyp 02/08/2013 MRSA [...] on file 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 Gender Identity Not on file Sexual Orientation [...] on file Medical Devices Implanted Type Area Financial Systems Manager Device Identifier Shelf Expiration Date Model / Serial / Lot [employer] [id number] 54mm Limit 4 Hole Hip F Hemisphere Offset Shell Acetabular - S0 - [id number] Implanted:Qty : 1 on 07/05/2020 by Juwan Simms MD at [facility] Other - see comments Left: Hip [employer] [id number] 12/30/2029 [id number] / 0 / [id number] [employer] [id number] Taperloc Xr Series 142mm Press Fit Full Profile Hip 123d 11 Stem - S0 - [id number] Implanted:Qty : 1 on 07/05/2020 by Juwan Simms MD at [facility] Other - see comments Left: Hip [employer] [id number] 05/14/2029 [id number] / 0 / [id number] Liner Hip G7 Longevity 5mm 32mm D - [id number] Implanted:Qty : 1 on 07/05/2020 by Juwan Simms MD at [facility] Left: Hip [employer] [id number] 12/29/[id number] / / [id number] [employer] 650-0662 G7 36mm Type 1 Modular Hip Acetabular +3mm Offset Head Femoral - [id number] Implanted:Qty : 1 on 07/05/2020 by Juwan Simms MD at [facility] Left: Hip [employer] 03/27/2030 [id number] / / [id number] Insurance [facility] [place] [address] [place] [address] HEALTHCARE Advance Directives For more information, please contact: [phone] * Full Code (Latest Code Status on File) Date Activated Date Inactivated Comments 07/05/2020 11:51 AM 07/06/2020 3:59 PM Care Teams Pineapple Plantation Manager Relationship Specialty Start Date End Date Jay Licea MD PCP - General Family Practice 01/09/21
--- OUTSIDE RECORDS SUMMARY | 2025-03-26 14:06 | XMS_ITS | Clinical Summary ---
Author Organization [facility] Address [address] [place] [address] Care Team Providers Care Vending Machine Operator Name Role Phone Jay Licea MD [...] 2 (two) times a day 1 Active puapdwea54-ajmc-W mfolate-algal 27 mg iron-1.13 mg-581.92 mg capsule [...] (08/27/2022): Added automatically from request for surgery [id number] HTN (hypertension) 07/03/2020 Asthma 07/03/2020 Iron deficiency anemia 07/03/2020 Seizures 07/03/2020 Primary osteoarthritis of left hip 01/10/2020 Overview (01/10/2020): Added automatically from request for surgery [id number] Knee pain 06/14/2013 Nasal polyp 02/08/2013 MRSA [...] on file 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 Other - see comments Left: Hip [employer] [id number] 12/30/2029 [id number] / 0 / [id number] [employer] [id number] Taperloc Xr Series 142mm Press Fit Full Profile Hip 123d 11 Stem - S0 - [id number] Implanted:Qty : 1 on 07/05/2020 by Juwan Simms MD at [facility] Other - see comments Left: Hip [employer] [id number] 05/14/2029 [id number] / 0 / [id number] Liner Hip G7 Longevity 5mm 32mm D - [id number] Implanted:Qty : 1 on 07/05/2020 by Juwan Simms MD at [facility] Left: Hip [employer] [id number] 12/29/2024 [id number] / / [id number] [employer] [id number] G7 36mm Type 1 Modular Hip Acetabular +3mm Offset Head Femoral - [id number] Implanted:Qty : 1 on 07/05/2020 by Juwan Simms MD at [facility] Left: Hip [employer] 03/27/2030 [id number] / / [id number] Insurance [facility] [place] [address] [facility] Advance Directives For more information, please contact: [phone] * Full Code (Latest Code Status on File) Date Activated Date Inactivated Comments 07/05/2020 11:51 AM 07/06/2020 3:59 PM Care Teams Vending Machine Operator Relationship Specialty Start Date End Date Jay Licea MD PCP - General Family Practice 01/09/21
--- OUTSIDE RECORDS SUMMARY | 2025-03-26 14:06 | XMS_ITS | Encounter Summary ---
Author Organization [facility] Address [address] [facility] [place] [address] Care Team Providers Care Machine Clothing Man Name Role Phone Niyah Barth MD Primary Care Provider Encounter Details Date Type Department Care Team (Late st Contact Info) Description 08/31/2023 Lab Requisition [facility] - DermPath Lab [address] [facility] [place] [id number] Иван Umanzor MD [address] [place] [address] Social History Tobacco Use Types Packs/Day Years Used Date Smoking Tobacco: Never Smokeless Tobacco: Never Alcohol Use Standard Drinks/Week Comments No 0 (1 standard drink = 0.6 oz pur e alcohol) Comments Unknown Sex and Gender Information Value Date Recorded Sex Assigned at Not on file 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 Gender Identity Not on file Sexual Orientation Not on file documented as of this encounter Plan of Treatment Not on file documented as of this encounter Procedures Procedure Name Priority Date/Time Associated Diagnosis Comments DERMATOPATHOLOGY Routine 08/30/2023 12:0 0 AM CDT documented in this encounter Results * DERMATOPATHOLOGY (08/30/2023 12:00 AM CDT) Case Report Dermatopathology Report Case: [id number] Authorizing Provider: Иван Umanzor MD Collected: 08/30/2023 12:00 AM Ordering Location: [facility] DermPath Lab Received: 08/31/2023 04:22 PM Pathologist: Elba Cano MD Specimens: A) - Skin, right post shoulder superior B) - Skin, right post shoulder inferior 9:08 AM [facility] DERMATOPATHOLOGY LABORATORY Final Diagnosis Specimen A. SKIN, right post shoulder superior: SPONGIOTIC DERMATITIS WITH EOSINOPHILS (L30.8) EPIDERMAL NECROSIS SUGGESTIVE OF EXCORIATION (L98.499) (see microscopic description and comment) Specimen B. SKIN, right post shoulder inferior: SPONGIOTIC DERMATITIS WITH EOSINOPHILS (L30.8) EPIDERMAL NECROSIS SUGGESTIVE OF EXCORIATION (L98.499) (see microscopic description and comment) 9:08 AM T DERMATOPATHOLOGY LABORATORY Clinical History A-B: R/O Drug Eruption vs ACD 9:08 AM T DERMATOPATHOLOGY LABORATORY Gross Description Specimen A: Received [...] measuring 6x5x1 mm. Jar 0. 9:08 AM [facility] DERMATOPATHOLOGY LABORATORY Microscopic Description Specimen A. 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 3 9:08 AM CDT DERMATOPATHOLOGY LABORATORY Disclaimer An external and internal positive and negative controls are appropriate for the histochemical, immunohistochemical and immunofluorescence stain(s) in this case (if any), except where stated explicitly. The performance characteristics of the stain(s) cited in this report were developed and its performance characteristic determined by the Dermatopathology Laboratory at [facility], directed by Dr. [place] Cano. These tests need not be, and therefore are not, approved by the [place] Food and Drug Administration. The tests are used for clinical purposes. Billing Codes Specimen Charges Stain Charges 68879 94343 1 1 3 9:08 AM CDT DERMATOPATHOLOGY LABORATORY Embedded Images 3 9:08 AM CDT DERMATOPATHOLOGY LABORATORY Pathology/Cytology TISSUE SPECIMEN FROM SKIN / Unknown 08/30/2023 08/31/2023 4:22 PM CDT Miscellaneous samples (specimen) TISSUE SPECIMEN FROM SKIN / Unknown 08/30/2023 08/31/2023 4:22 PM CDT Иван Umanzor MD LAB - PATHOLOGY/CYTOLOGY ORDERAB LES Final Result DERMATOPATHOLOGY LABORATORY [facility] - Department of Dermatology [address] [phone] documented in this encounter Visit Diagnoses Not on filedocumented in this encounter Care Teams Machine Clothing Man Relationship Specialty Start Date End Date Niyah Barth MD [address] [place] [phone] PCP - General 11/12/11 documented as of this encounter
--- OUTSIDE RECORDS SUMMARY | 2025-03-26 14:06 | XMS_ITS | Continuity of Care Document ---
Author Organization [employer] [facility] Address [address] [place] [address] Phone Care Team Providers Care Art Gallery Internship Name Role Phone Rosanne Regalado Unavailable Unavailable [...] Diagnoses Date Provider Providers Copied on Encounter [facility], [address] [place] [address] [address], [place], [place], [id number], [place] tel:[phone] SEC [facility] No Information Oct-0 5-201 0 Regalado Rosanne. [address] , [address], [place], [place], [facility] [place] [facility] [place]. tel:[phone] [facility], [address] [place] [address] [address], [place], [place], [address], [place] tel:[phone] [facility] No Information Sep-3 0-201 0 Regalado Rosanne. [address] , [address], [place], [place], [facility] [place] [facility] [place]. tel:[phone] [facility], [address], [place], [place], [address], [place] tel:[phone] [facility] No Information Jul-2 9-201 0 Regalado Rosanne. [address] , [address], [place], [facility] [place] [facility] [place]. tel:[phone] [facility], [address] [place] [address] [address], [place], [place], [address], [place] tel:[phone] [facility] No Information 5-201 0 Regalado Rosanne. [address] , [address], [place], [facility] [place] [facility] [place]. tel:[phone] [facility], [address] [place] [address] [address], [place], [place], [address], [place] tel:[phone] [facility] No Information 4-201 0 Regalado Rosanne. [address] , [address], [place], [facility] [place] [facility] [place]. tel:[phone] [facility], [address], [place], [place], [address], [place] tel:[phone] SEC [facility] Corporate [place] No Information Chalino-2 3-201 0 Dotson OD John. [address] , [address], [place], [address], [place]. tel:[phone] [facility], [address], [place], [place], [address], [place] tel:[phone] SEC [facility] No Information Apr-1 0-200 9 Dotson OD John. [address] , [address], [place], [address], [place]. tel:[phone] [facility], [address], [place], [place], [id number], [place] tel:[phone] SEC [facility] No Information Apr-0 7-200 9 [facility] [employer] . [address], [place], [place], [address], [place]. tel:[phone] Referring Provider: John Dotson OD A, [address] [place], [place] [address], [place], [address]. tel:[phone] g Provider: Sarah Saucedo, [address] [place], [address]. tel:[phone] [facility] Eye [facility], [address], [place], [place], [address], [place] tel:[phone] SEC [facility] No Information Mar-1 3-200 9 Dotson OD John. [facility] [facility] , [address], [place], [address], [place]. tel:[phone] [facility] Eye [facility], [address], [place], [place], [address], [place] tel:[phone] [facility] [place] No Information Oct-1 0-200 8 Dotson OD John. [address] [facility] , [address], [place], [address], [place]. tel:[phone] Referring Provider: John Dotson OD A, [facility] [address], [place], [address]. tel:[phone] [facility] Eye [facility], [address] [place] [address] [address], [place], [place], [address], [place] tel:[phone] [facility] [place] No Information 3-200 8 [facility] [employer] . [address], [address], [place], [place], [address], [place]. tel:[phone] Referring Provider: John Dotson OD A, [address] [place], [place] [address]ate [address], [place], [address]. tel:[phone] garrido Provider: Yong Perez, [address] [place], [place] [address] [facility], [place], [address]. tel:[phone] Office/outpat ient Visit, Est [facility], [address] [place] [address] [address], [place], [place], [address], [place] tel:[phone] [facility] [place] No Information 9-200 8 Dotson OD John. [address] [place] [address] , [address], [place], [address], [place]. tel:[phone] [facility] Eye [facility], [address], [place], [place], [address], [place] tel:[phone] [facility] [place] No Information 6-200 7 Dotson OD John. [address] [place] [address] Center , [address], [place], [address], [place]. tel:[phone] Referring Provider: John Dotson OD A, [address] [place], [place] [address]ate [place] [address], [place], [address]. tel:[phone] [facility] Eye [facility], [address] [place] [address] [address], [place], [place], [address], [place] tel:[phone] [facility] [place] No Information 3-200 7 Dotson OD John. [address] [place] [address] , [address], [place], [address], [place]. tel:[phone] Referring Provider: John Graves, [address] [place] [address] [address], [place], [place], [facility] [place] [facility] [place]. tel:[phone] [facility] Eye [facility], [address] [place] [address] [address], [place], [place], [address], [place] tel:[phone] [facility] No Information 0-200 7 [facility] [employer] . [address], [address], [place], [place], [address], [place]. tel:[phone] Referring Provider: John Graves, [address] [place] [address] [address], [place], [facility] [place] [facility] [place]. tel:[phone] g Provider: Yong Perez, [address] [place] [address], [place], [facility] [place] [facility] [place]. tel:[phone] [facility] Eye [facility], [address] [place] [address] [address], [place], [place], [address], [place] tel:[phone] [facility] No Information 4200 7 Dotson OD John. [address] [place] [address] , [address], [place], [facility] [place] [facility] [place], [place]. tel:[phone] Family History Family Member Type Diagnosis Age At Onset No Information Payers Payer name Insurance type Covered constitution party ID Authoriza tion(s) No Information Social [...]
--- OUTSIDE RECORDS SUMMARY | 2025-03-26 14:06 | XMS_ITS | Clinical Summary ---
Author Organization [facility] Address [address] [place] [address] Phone Care Team Providers Care Drop Forger Helper Name Role Phone Jay Licea MD Primary [...] Tablet 3 Active naloxone (NARCAN) 4 mg/spray Rozel, Non-Aerosol EMERGENCY USE ONLY: Administer 1 spray [...] (05/05/2023): Added automatically from request for surgery [id number] HTN (hypertension) 07/03/2020 Iron deficiency anemia 07/03/2020 [...] PM CDT Legal Sex Female 6:06 AM HYDROPONICS GROWER Gender Identity Female 04/15/2024 3:45 PM CDT Sexual Orientation Not on file Last Filed Vital Signs Vital Sign Reading Time Taken Comments Blood Pressure 109/68 10/16/2024 1:03 PM HYDROPONICS GROWER Pulse 74 10/16/2024 1:03 PM HYDROPONICS GROWER Temperature 37 C (98.6 F) 10/16/2024 1:03 PM HYDROPONICS GROWER Respiratory Rate 16 10/16/2024 1:03 PM HYDROPONICS GROWER Oxygen Saturation 93% 10/16/2024 1:03 PM HYDROPONICS GROWER Inhaled Oxygen Concentration - - Weight 74.8 kg (165 lb) 10/16/2024 1:03 PM HYDROPONICS GROWER Height 162.6 cm (5' 4 ) 10/16/2024 1:03 PM HYDROPONICS GROWER Body Mass Index 28.32 10/16/2024 1:03 PM HYDROPONICS GROWER Plan of Treatment Upcoming Encounters Date Type Department Care Team (Late st Contact Info) Description 10/15/2025 1:00 PM HYDROPONICS GROWER Office Visit [facility] Neurosurgery S [facility] [address] [address] [place] [phone] Dangelo Hopper MD [address] [facility] [address] [place] [phone] Health Maintenance Due Date Last Done Comments DTAP/TDAP/TD VACCINES (1 - Tdap) 1968 PNEUMOCOCCAL VACCINE 50+ YEARS (1 of 2 - PCV) 03/04/19 68 ZOSTER VACCINE (1 of 2) 1999 OSTEOPOROSIS SCREENING 2014 RSV VACCINE (60+ or ) (1 - 1-dose 75+ series) 2024 INFLUENZA VACCINE (#1) 2024 10/14/2016 Medical Devices Implanted Type Area Bricklayer Supervisor Device Identifier Shelf Expiration Date Model / Serial / Lot Sealant Duraseal 5ml - [id number] Implanted:Qty : 1 on 09/17/2023 by Dangelo Hopper MD at [facility] Biological N/A: Back [employer] KAY 08/01/2024 / / [id number] Spacer Catalyft Pl 7mm Xpndble Strt [id number] - Sna Implanted:Qty : 1 on 09/10/2023 by Dangelo Hopper MD at [facility] Cage N/A: Spine Lumbar [employer]- SOFAMOR DANEK 08/18/2031 [id number] / NA / [id number] Duragen + 1x1in Dp-1010 - [id number] Implanted:Qty : 1 on 09/17/2023 by Dangelo Hopper MD at [facility] Graft N/A: Back [employer] 12/29/2025 [id number] / / [id number] Description:CHECKED BY 10 .23.23 Hemostatic Surgiflo 8ml W/ Thrombin 2994 - Sna Implanted:Qty : 1 on 05/04/2023 by Dangelo Hopper MD at [facility] Hemostatic N/A: Spine Cervical Posterior J&J- ETHICON INC 05/28/2024 2994 / NA / [id number] Hemostatic Surgiflo 8ml W/ Thrombin 2994 - Sna Implanted:Qty : 1 on 05/04/2023 by Dangelo Hopper MD at [facility] Hemostatic N/A: Spine Cervical Posterior J[employer]J- [employer] 12/29/2023 2994 / NA / [id number] Hemostatic Surgiflo 8ml W/ Thrombin 2994 - Sna Implanted:Qty : 1 on 05/04/2023 by Dangelo Hopper MD at [facility] Hemostatic N/A: Spine Cervical Posterior J&J- [employer] 12/29/2023 2994 / NA / [id number] Hemostatic Surgiflo 8ml W/ Thrombin 2994 - [id number] Implanted:Qty : 1 on 09/10/2023 by Dangelo Hopper MD at [facility] Hemostatic N/A: Back J&J- [employer] 12/29/2024 2994 / / [id number] Hemostatic Surgiflo 8ml W/ Thrombin 2994 - [id number] Implanted:Qty : 1 on 09/10/2023 by Dangelo Hopper MD at [facility] Hemostatic N/A: Back J&J- [employer] 12/29/2024 2994 / / [id number] Hemostatic Surgiflo 8ml W/ Thrombin 2994 - [id number] Implanted:Qty : 1 on 09/17/2023 by Dangelo Hopper MD at [facility] Hemostatic N/A: Back J&J- [employer] 12/29/2024 2994 / / [id number] Hemostatic Surgiflo 8ml W/ Thrombin 2994 - [id number] Implanted:Qty : 1 on 09/17/2023 by Dangelo Hopper MD at [facility] Hemostatic N/A: Back J&J- [employer] 12/29/2024 2994 / / [id number] Connector Implanted:Qty : 1 on 09/17/2023 by Dangelo Hopper MD at [facility] Other N/A: Back [employer] [id number] / / Description:1X ADD JM Animas Offset Implanted:Qty : 2 on 09/17/2023 by Dangelo Hopper MD at [facility] Other N/A: Back [employer] [id number] / / Description:1X ADD JM Animas Offset Implanted:Qty : 3 on 09/17/2023 by Dangelo Hopper MD at [facility] Other N/A: Back [employer] [id number] / / Description:1X ADD JM Rodrigo Std 3.0q167nm [id number] - Sna Implanted:Qty : 1 on 05/04/2023 by Dangelo Hopper MD at [facility] Rodrigo N/A: Spine Cervical Posterior [employer]FAMOR DANEK [id number] / NA / NA Description:load # [id number] sterilization date - April 28, 2023 Rodrigo Cdh Chromaloy+ 5.8x713gb Strt [id number] - Sn/A Implanted:Qty : 2 on 09/10/2023 by Dangelo Hopper MD at [facility] Rodrigo N/A: Spine Lumbar [employer] [id number] / N/A / N/A Description:Load # [id number] Sterile Date:09-07-2023 Rodrigo Std 3.9y118vw [id number] - [id number] Implanted:Qty : 2 on 09/17/2023 by Dangelo Hopper MD at [facility] Rodrigo N/A: Back [employer]K [id number] / / Description:LOAD# [id number] STERILIZED: 09/15/2023 Rodrigo Implanted:Qty : 2 on 09/17/2023 by Dangelo Hopper MD at [facility] Rodrigo N/A: Back [employer] [id number] / / [id number] Description:1X ADD JM Screw Transition 5.5x25mm Mas [id number] - Sna Implanted:Qty : 1 on 05/04/2023 by Dangelo Hopper MD at [facility] Screw N/A: Spine Cervical Posterior [employer] SOFAMOR [employer]ANEK 12/08/2026 [id number] / NA / [id number] Screw Transition 5.5x25mm Mas [id number] - Sna Implanted:Qty : 1 on 05/04/2023 by Dangelo Hopper MD at [facility] Screw N/A: Spine Cervical Posterior [employer] SOFAMOR [employer]ANEK 03/10/2027 [id number] / NA / [id number] Screw Infinity Oc M6 [id number] - Sna Implanted:Qty : 13 on 05/04/2023 by Dangelo Hopper MD at [facility] Screw N/A: Spine Cervical Posterior [employer]K [id number] / NA / NA Description:Load # [id number] sterilization date - April 28, 2023 Screw Infinity 4.5x22mm Mas [id number] - Sna Implanted:Qty : 5 on 05/04/2023 by Dangelo Hopper MD at [facility] Screw N/A: Spine Cervical Posterior [employer] [id number] / NA / NA Description:load # [id number] sterilization date - April 28, 2023 Screw Infinity 4.0x18mm Mas [id number] - Sna Implanted:Qty : 2 on 05/04/2023 by Dangelo Hopper MD at [facility] Screw N/A: Spine Cervical Posterior [employer] [id number] / NA / NA Description:load # [id number] 706 sterilization date - 2022 Screw Infinity 3.5x20mm Mas [id number] - Sna Implanted:Qty : 2 on 05/04/2023 by Dangelo Hopper MD at [facility] Screw N/A: Spine Cervical Posterior [employer]ANEK [id number] / NA / NA Description:load # [id number] sterilization date - 2022 Screw Transition 5.5x30mm Mas [id number] - Sna Implanted:Qty : 1 on 05/04/2023 by Dangelo Hopper MD at [facility] Screw N/A: Spine Cervical Posterior [employer] SOF[employer]OR [employer]ANEK 12/26/2029 [id number] / NA / [id number] Screw Transition 5.5x25mm Mas [id number] - Sna Implanted:Qty : 1 on 05/04/2023 by Dangelo Hopper MD at [facility] Screw N/A: Spine Cervical Posterior [employer] SOF[employer]ANEK 10/22/2029 [id number] / NA / [id number] Screw Cdh 5.0x30mm 5.5/6.0 Mas Cc [id number] - Sn/A Implanted:Qty : 4 on 09/10/2023 by Dangelo Hpoper MD at [facility] Screw N/A: Back [employer]ANEK [id number] / N/A / N/A Description:Load # [id number] Sterile Date: 09-08-2023 Screw Cdh 4.5x30mm 5.5/6.0 Mas Cc [id number] - Sn/A Implanted:Qty : 2 on 09/10/2023 by Dangelo Hopper MD at [facility] Screw N/A: Back [employer] [id number] / N/A / N/A Description:Load # [id number] Sterile Date: 09-08-2023 Screw Cdh 4.5x40mm 5.5/6.0 Mas Cc [id number] - Sn/A Implanted:Qty : 3 on 09/10/2023 by Dangelo Hopper MD at [facility] N/A: Back [employer] [id number] / N/A / N/A Description:Load # [id number] Sterile Date: 09-08-2023 Screw Cdh 5.0x40mm 5.5/6.0 Mas Cc [id number] - Sn/A Implanted:Qty : 5 on 09/10/2023 by Dangelo Hopper MD at [facility] N/A: Back [employer] [id number] / N/A / N/A Description:Load # [id number] Sterile Date: 09-08-2023 Screw Cdh 5.5x40mm 5.5/6.0 Mas Cc [id number] - Sn/A Implanted:Qty : 2 on 09/10/2023 by Dangelo Hopper MD at [facility] N/A: Back [employer]FAM[employer]ANEK [id number] / N/A / N/A Description:Load # [id number] Sterile Date: 09-07-2023 Screw Cdh 5.5x50mm 5.5/6.0 Mas Cc [id number] - Sn/A Implanted:Qty : 2 on 09/10/2023 by Dangelo Hopper MD at [facility] N/A: Back [employer]ANEK [id number] / N/A / N/A Description:Load # [id number] Sterile Date: 09-07-2023 Screw Cdh 6.5x45mm 5.5/6.0 Mas Cc [id number] - Sn/A Implanted:Qty : 4 on 09/10/2023 by Dangelo Hopper MD at [facility] N/A: Back [employer] SOFAM[employer]ANEK [id number] / N/A / N/A Description:Load # [id number] Sterile Date: 09-07-2023 Screw Cdh 5.5x45mm 5.5/6.0 Mas Cc [id number] - Sn/A Implanted:Qty : 2 on 09/10/2023 by Dangelo Hopper MD at [facility] N/A: Back [employer]ANEK [id number] / N/A / N/A Description:Load # [id number] Sterile Date: 09-07-2023 Screw Cdh 7.5x50mm 5.5/6.0 Mas Cc [id number] - Sn/A Implanted:Qty : 1 on 09/10/2023 by Dangelo Hopper MD at [facility] N/A: Back [employer] SOF[employer]ANEK [id number] / N/A / N/A Description:Load # [id number] Sterile Date: 09-07-2023 Screw Cdh 7.5x55mm 5.5/6.0 Mas Cc [id number] - Sn/A Implanted:Qty : 2 on 09/10/2023 by Dangelo Hopper MD at [facility] N/A: Back [employer]FAM[employer]ANEK [id number] / N/A / N/A Description:Load # [id number] Sterile Date: 09-07-2023 Screw Cdh 7.5x45mm 5.5/6.0 Mas Cc [id number] - Sn/A Implanted:Qty : 1 on 09/10/2023 by Dangelo Hopper MD at [facility] N/A: Back [employer]ANE[employer] [id number] / N/A / N/A Description:Load # [id number] Sterile Date: 09-07-2023 Screw Solera 5.5/6.0 Breakoff [id number] - Sn/A Implanted:Qty : 8 on 09/10/2023 by Dangelo Hopper MD at [facility] N/A: Spine Lumbar [employer]ANEK [id number] / N/A / N/A Description:Load # [id number] Sterile Date:09-07-2023 Screw Implanted:Qty : 2 on 09/10/2023 by Dangelo Hopper MD at [facility] N/A: Spine Lumbar [employer] INC [id number] / / Description:1X ADD JM Screw Ti Std Break Off Solera St [id number] - [id number] Implanted:Qty : 1 on 09/17/2023 by Dangelo Hopper MD at [facility] Screw N/A: Back [employer] SOFAMOR [employer]ANEK [id number] / / Description:LOAD# [id number] STERILIZED: 09/13/2023 Screw Solera 5.5/6.0 Breakoff [id number] - [id number] Implanted:Qty : 30 on 09/17/2023 by Dangelo Hopper MD at [facility] Screw N/A: Back [employer] SOFAMOR [employer]ANEK [id number] / / Description:LOAD# [id number] STERILIZED: 09/13/2023 Insurance RX MEDIMPACT Member Subscriber Plan / Payer (Ef fective 2015-Present) Name:Ivett Stephens Relation to Subscriber:Self Name:Ivett Stephens Payer ID:Not on file Group ID:[id number] Type:RX Medicare Part D Address: [address] Advance Directives For more information, please contact: [phone] * Full Code (Latest Code Status on File) Date Activated Date Inactivated Comments 09/10/2023 6:27 PM 09/25/2023 5:47 PM * Full Code Date Activated Date Inactivated Comments 05/29/2023 8:54 PM 06/05/2023 4:08 PM * Full Code Date Activated Date Inactivated Comments 05/04/2023 7:20 PM 05/09/2023 3:51 PM Care Teams Drop Forger Helper Relationship Specialty Start Date End Date Jay Licea MD [address] [place] [address] PCP - General Family Practice 02/19/23
== END 2025-03-26 12:29 | disposition home or self-care (01) ==
LOC: ANHSURGERY 12:32
PROVIDERS: Anesthesiology; PCP Family Medicine; Visit Provider Podiatrist Foot & Ankle Surgery
DX: G40.909 Epilepsy, unspecified, not intractable, without status epilepticus (principal)
CPT/HCPCS: 36415; 80185

== ENCOUNTER 2025-04-06 00:59 | Day surgery (SDC) | payer MEDICARE, SELFPAY ==
[2025-03-20 09:28] VITALS: BMI 28.8
--- NOTE | 2025-03-20 09:43 | PC.NURSE ---
Report to the Outpatient Waiting Room, entrance under the green pavilion located off [facility], at time __06:00am on date __04/06/25 ____. Planned Procedure Time: _0730am .? Time changes happen often and if your time is changed the preop area will call you the afternoon before. - You and your visitor will be asked to self-screen and do not enter if you have any COVID symptoms. Please call surgeon if you need to reschedule. - A mask is optional within the hospital at this time. Patients may have clear liquids (water, carbonated beverages, clear teas, apple juice) until 3 hours prior to surgery with a maximum of 20 ounces. - No food from midnight until time of surgery and no smoking, or chewing tobacco (or any form of nicotine). No chewing gum, candy or mints. (0430am) Take only the following medications with a SIP of water on the morning of surgery: ___Wixela inhaler, Dilantin, Gabapentin, Metoprolol and Tramadol and Tylenol if needed DO NOT STOP ANY OF YOUR OTHER PRESCRIPTION MEDICATIONS PRIOR TO SURGERY EXCEPT THE FOLLOWING Hold all vitamins and supplements for 3 days per anesthesiologist.Date to take last dose__ 04/02/25 Medications to discontinue per physician None Date to take last dose None Please no make-up, nail english, hairspray, perfume, deodorant, or body powder the day of surgery.? No jewelry (including any body piercings) or valuables the day of surgery, leave them at home.? Please take a shower or bath the night before, or the morning of, surgery with an antibacterial soap.? Wear comfortable, loose fitting clothing.? - Jewelry must be removed prior to entering the operating room.? Rings and piercings that are not removed may be cut off. - The hospital will not accept responsibility for valuables.? - Please leave all valuables, including medications, at home the day of surgery. If you are going home after surgery, a licensed driver guide must drive you home.? - NO public transportation without another adult if you receive anesthesia. - We recommend that an adult stay with you for 24 hours following discharge. - We also recommend that you do not drive, make important decision, drink alcoholic beverages, or take any drugs that were not prescribed by your health care provider for at least 24 hours after your discharge time. Follow any additional instructions given to you from your surgeon. Telephone instructions given to __Patient and asked if any additional questions and then verbalized understanding. Patient advised to call surgeon office or pre surgery nurse liaison [phone] if any additional questions.
--- NOTE | ~2025-04-06 | XR_ITS ---
EXAMINATION: XR surgery orthopedic DATE: 04/06/2025 08:52 INDICATION: Left foot arthrodesis TECHNIQUE: 2 fluoroscopic images of the left great toe were obtained during procedure performed by Dr Jessica Roy. Radiologist was not present for the imaging or procedure. The amount of fluoroscopy time used during this procedure was 0.4 minutes. Total DAP was 1.22 cGycm^2. COMPARISON: None. FINDINGS: Chronic arthrodesis without internal fixation at the second and third distal interphalangea l joints. Arthrodesis at the first interphalangeal joint with compression screw fixation at the first metatarsophalangeal joint with dorsal plate fixation. Soft tissue swelling and small amount of likel y postoperative gas about the first interphalangeal joint. Alignment of bones appears near-anatomic. No fracture. Mild osteoarthritis at the second and third metatarsophalangeal and distal interphalange al joints. IMPRESSION: 1. Instrumented arthrodesis at the first metatarsophalangeal and interphalangeal joints. See procedur e note for further detail. 2. Chronic arthrodesis without instrumentation at the second and third proximal interphalangeal joint s. Reviewed, dictated and finalized at location A. IMPRESSION: 1. Instrumented arthrodesis at the first metatarsophalangeal and interphalangea l joints. See procedure note for further detail. 2. Chronic arthrodesis without instrumentation at the second and third proximal interphalangeal joints.
--- OUTSIDE RECORDS SUMMARY | 2025-04-06 01:02 | XMS_ITS | Encounter Summary ---
Author Organization [facility] Address [address] [place] [address] Care Team Providers Care Dietician Name Role Phone Niyah Barth MD Primary Care Provider Encounter Details Date Type Department Care Team (Late st Contact Info) Description 08/31/2023 Lab Requisition [facility] - DermPath Lab [address] [place] [phone] Иван Umanzor MD [address] [place] [address] Social History Tobacco Use Types Packs/Day Years Used Date Smoking Tobacco: Never Smokeless Tobacco: Never Alcohol Use Standard Drinks/Week Comments No 0 (1 standard drink = 0.6 oz pur e alcohol) Comments Unknown Sex and Gender Information Value Date Recorded Sex Assigned at Not on file 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 Gender Identity Not on file Sexual Orientation Not on file documented as of this encounter Plan of Treatment Not on file documented as of this encounter Procedures Procedure Name Priority Date/Time Associated Diagnosis Comments DERMATOPATHOLOGY Routine 08/30/2023 12:0 0 AM CDT documented in this encounter Results * DERMATOPATHOLOGY (08/30/2023 12:00 AM CDT) Case Report Dermatopathology Report Case: [id number] Authorizing Provider: Иван Umanzor MD Collected: 08/30/2023 12:00 AM Ordering Location: [facility] DermPath Lab Received: 08/31/2023 04:22 PM Pathologist: Elba Cano MD Specimens: A) - Skin, right post shoulder superior B) - Skin, right post shoulder inferior 9:08 AM [facility] DERMATOPATHOLOGY LABORATORY Final Diagnosis Specimen [...] measuring 6x5x1 mm. Jar 0. 9:08 AM [facility] DERMATOPATHOLOGY LABORATORY Microscopic Description Specimen [...] characteristic determined by the Dermatopathology Laboratory at [facility], directed by Dr. Maxim Cano. These tests need not be, and therefore are not, approved by the [place] Food and Drug Administration. The tests are used for clinical purposes. Billing Codes Specimen Charges Stain Charges 49912 04808 1 1 3 9:08 AM CDT DERMATOPATHOLOGY LABORATORY Embedded Images 3 9:08 AM CDT DERMATOPATHOLOGY LABORATORY Pathology/Cytology TISSUE SPECIMEN FROM SKIN / Unknown 08/30/2023 08/31/2023 4:22 PM CDT Miscellaneous samples (specimen) TISSUE SPECIMEN FROM SKIN / Unknown 08/30/2023 08/31/2023 4:22 PM CDT Иван Umanzor MD LAB - PATHOLOGY/CYTOLOGY ORDERAB LES Final Result DERMATOPATHOLOGY LABORATORY [facility] - Department of Dermatology [address] [phone] documented in this encounter Visit Diagnoses Not on filedocumented in this encounter Care Teams Dietician Relationship Specialty Start Date End Date Niyah Barth MD [address] [place] [phone] PCP - General 11/12/11 documented as of this encounter
--- OUTSIDE RECORDS SUMMARY | 2025-04-06 01:02 | XMS_ITS | Referral Summary ---
Author Organization [facility] Address [address] [place] [address] Care Team Providers Care Load Manager Name Role Phone Jay Licea MD [...] 2 (two) times a day 1 Active xoptpyae03-breg-V mfolate-algal 27 mg iron-1.13 mg-581.92 mg capsule [...] (08/27/2022): Added automatically from request for surgery [id number] HTN (hypertension) 07/03/2020 Asthma 07/03/2020 Iron deficiency anemia 07/03/2020 Seizures 07/03/2020 Primary osteoarthritis of left hip 01/10/2020 Overview (01/10/2020): Added automatically from request for surgery [id number] Knee pain 06/14/2013 Nasal polyp 02/08/2013 MRSA [...] on file 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 Gender Identity Not on file Sexual Orientation [...] on file Medical Devices Implanted Type Area Supervisor Special Services Device Identifier Shelf Expiration Date Model / Serial / Lot [employer] [id number] 54mm Limit 4 Hole Hip F Hemisphere Offset Shell Acetabular - S0 - [id number] Implanted:Qty : 1 on 07/05/2020 by Juwan Simms MD at [facility] Other - see comments Left: Hip [employer] [id number] 12/30/2029 [id number] / 0 / [id number] [employer] [id number] Taperloc Xr Series 142mm Press Fit Full Profile Hip 123d 11 Stem - S0 - [id number] Implanted:Qty : 1 on 07/05/2020 by Juwan Simms MD at [facility] Other - see comments Left: Hip [employer] [id number] 05/14/2029 [id number] / 0 / [id number] Liner Hip G7 Longevity 5mm 32mm D - [id number] Implanted:Qty : 1 on 07/05/2020 by Juwan Simms MD at [facility] Left: Hip [employer] [id number] 12/29/[id number] / / [id number] M[employer] 650-0662 G7 36mm Type 1 Modular Hip Acetabular +3mm Offset Head Femoral - [id number] Implanted:Qty : 1 on 07/05/2020 by Juwan Simms MD at [facility] Left: Hip [employer] 03/27/2030 650-0662 / / [id number] Insurance [facility] [address] [place] [address] HEALTHCARE Advance Directives For more information, please contact: [phone] * Full Code (Latest Code Status on File) Date Activated Date Inactivated Comments 07/05/2020 11:51 AM 07/06/2020 3:59 PM Care Teams Load Manager Relationship Specialty Start Date End Date Jay Licea MD PCP - General Family Practice 01/09/21
--- OUTSIDE RECORDS SUMMARY | 2025-04-06 01:02 | XMS_ITS | Encounter Summary ---
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
--- OUTSIDE RECORDS SUMMARY | 2025-04-06 01:02 | XMS_ITS | Clinical Summary ---
Author Organization [facility] Address [address] [address] Care Team Providers Care Payment Poster Name Role Phone Niyah Barth MD Primary Care Provider Source Comments [facility],non-owned Affiliates and Associated Physician Practices is amultiple site organization consisting of ambulatory clinics and hospital sitesin [place], [place], [place] and [place]. This disclosure is being madepursuant to the Care Everywhere program and may not contain all information available regarding this patient. 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 MEDICARE [employer] MEDICARE Care Teams Payment Poster Relationship Specialty Start Date End Date Niyah Barth MD [address] [place] [address] [address] [place] [phone] PCP - General 11/12/11
--- OUTSIDE RECORDS SUMMARY | 2025-04-06 01:02 | XMS_ITS | Clinical Summary ---
Author Organization [facility] Address [address] [place] [address] Phone Care Team Providers Care Yard Supervisor Cotton Gin Name Role Phone Jay Licea MD Primary [...] Tablet 3 Active naloxone (NARCAN) 4 mg/spray [place], Non-Aerosol EMERGENCY USE ONLY: Administer 1 spray [...] (05/05/2023): Added automatically from request for surgery [id number] HTN (hypertension) 07/03/2020 Iron deficiency anemia 07/03/2020 [...] PM CDT Legal Sex Female 6:06 AM MARKETING SYSTEMS MANAGER Gender Identity Female 04/15/2024 3:45 PM CDT Sexual Orientation Not on file Last Filed Vital Signs Vital Sign Reading Time Taken Comments Blood Pressure 109/68 10/16/2024 1:03 PM MARKETING SYSTEMS MANAGER Pulse 74 10/16/2024 1:03 PM MARKETING SYSTEMS MANAGER Temperature 37 C (98.6 F) 10/16/2024 1:03 PM MARKETING SYSTEMS MANAGER Respiratory Rate 16 10/16/2024 1:03 PM MARKETING SYSTEMS MANAGER Oxygen Saturation 93% 10/16/2024 1:03 PM MARKETING SYSTEMS MANAGER Inhaled Oxygen Concentration - - Weight 74.8 kg (165 lb) 10/16/2024 1:03 PM MARKETING SYSTEMS MANAGER Height 162.6 cm (5' 4 ) 10/16/2024 1:03 PM MARKETING SYSTEMS MANAGER Body Mass Index 28.32 10/16/2024 1:03 PM MARKETING SYSTEMS MANAGER Plan of Treatment Upcoming Encounters Date Type Department Care Team (Late st Contact Info) Description 10/15/2025 1:00 PM MARKETING SYSTEMS MANAGER Office Visit [facility] Neurosurgery S [facility] [address] [facility] [address] [place] [address] Dnagelo Hopper MD [address] [facility] [address] [place] [address] Health Maintenance Due Date Last Done Comments DTAP/TDAP/TD VACCINES (1 - Tdap) 1968 PNEUMOCOCCAL VACCINE 50+ YEARS (1 of 2 - PCV) 03/04/19 68 ZOSTER VACCINE (1 of 2) 1999 OSTEOPOROSIS SCREENING 2014 RSV VACCINE (60+ or ) (1 - 1-dose 75+ series) 2024 INFLUENZA VACCINE (#1) 2024 10/14/2016 Medical Devices Implanted Type Area Convention Worker Device Identifier Shelf Expiration Date Model / Serial / Lot Sealant Duraseal 5ml - [id number] Implanted:Qty : 1 on 09/17/2023 by [facility]o [facility] Biological N/A: Back [employer]RA [employer] KAY 08/01/2024 / / [id number] Spacer Catalyft Pl 7mm Xpndble Strt [id number] - Sna Implanted:Qty : 1 on 09/10/2023 by Dangelo Hopper MD at [facility] Cage N/A: Spine Lumbar [employer]- SOFAMOR DANEK 08/18/2031 [id number] / NA / [id number] Duragen + 1x1in Dp-1010 - [id number] Implanted:Qty : 1 on 09/17/2023 by Dangelo Hopper MD at [facility] Graft N/A: Back [employer] 12/29/2025 [id number] / / [id number] Description:CHECKED BY 10 .23.23 Hemostatic Surgiflo 8ml W/ Thrombin 2994 - Sna Implanted:Qty : 1 on 05/04/2023 by Dangelo Hopper MD at [facility] Hemostatic N/A: Spine Cervical Posterior J&J- ETHICON INC 05/28/2024 2994 / NA / [id number] Hemostatic Surgiflo 8ml W/ Thrombin 2994 - Sna Implanted:Qty : 1 on 05/04/2023 by Dangelo Hopper MD at [facility] Hemostatic N/A: Spine Cervical Posterior J&J- [employer] 12/29/2023 2994 / NA / [id number] Hemostatic Surgiflo 8ml W/ Thrombin 2994 - Sna Implanted:Qty : 1 on 05/04/2023 by Dangelo Hopper MD at [facility] Hemostatic N/A: Spine Cervical Posterior J&J- [employer] 12/29/2023 2994 / NA / [id number] Hemostatic Surgiflo 8ml W/ Thrombin 2994 - [id number] Implanted:Qty : 1 on 09/10/2023 by Dangelo Hopper MD at [facility] Hemostatic N/A: Back J&J- [employer] 12/29/2024 2994 / / [id number] Hemostatic Surgiflo 8ml W/ Thrombin 2994 - [id number] Implanted:Qty : 1 on 09/10/2023 by Dangelo Hopper MD at [facility] Hemostatic N/A: Back J&J- [employer] 12/29/2024 2994 / / [id number] Hemostatic Surgiflo 8ml W/ Thrombin 2994 - [id number] Implanted:Qty : 1 on 09/17/2023 by Dangelo Hopper MD at [facility] Hemostatic N/A: Back J&J- [employer] 12/29/2024 2994 / / [id number] Hemostatic Surgiflo 8ml W/ Thrombin 2994 - [id number] Implanted:Qty : 1 on 09/17/2023 by Dangelo Hopper MD at [facility] Hemostatic N/A: Back J&J- [employer] INC 12/29/2024 2994 / / [id number] Connector Implanted:Qty : 1 on 09/17/2023 by Dangelo Hopper MD at [facility] Other N/A: Back [employer] INC [id number] / / Description:1X ADD JM Dewayne Offset Implanted:Qty : 2 on 09/17/2023 by Dangelo Hopper MD at [facility] Other N/A: Back [employer] INC [id number] / / Description:1X ADD JM Reed Offset Implanted:Qty : 3 on 09/17/2023 by Dangelo Hopper MD at [facility] Other N/A: Back [employer] INC [id number] / / Description:1X ADD JM Rodrigo Std 3.0w220dk [id number] - Sna Implanted:Qty : 1 on 05/04/2023 by Dangelo Hopper MD at [facility] Rodrigo N/A: Spine Cervical Posterior [employer] SOFAMOR DANEK [id number] / NA / NA Description:load # [id number] sterilization date - April 28, 2023 Rodrigo Cdh Chromaloy+ 5.9z264dw Strt [id number] - Sn/A Implanted:Qty : 2 on 09/10/2023 by Dangelo Hopper MD at [facility] Rodrigo N/A: Spine Lumbar [employer]ANEK [id number] / N/A / N/A Description:Load # [id number] Sterile Date:09-07-2023 Rodrigo Std 3.2p800bw 1135640 - [id number] Implanted:Qty : 2 on 09/17/2023 by Dangelo Hopper MD at [facility] Rodrigo N/A: Back [employer] SOFAM[employer]ANEK [id number] / / Description:LOAD# [id number] STERILIZED: 09/15/2023 Rodrigo Implanted:Qty : 2 on 09/17/2023 by Dangelo Hopper MD at [facility] Rodrigo N/A: Back [employer] [id number] / / [id number] Description:1X ADD JM Screw Transition 5.5x25mm Mas [id number] - Sna Implanted:Qty : 1 on 05/04/2023 by Dangelo Hopper MD at [facility] Screw N/A: Spine Cervical Posterior [employer] SOFAMOR [employer]ANEK 12/08/2026 [id number] / NA / [id number] Screw Transition 5.5x25mm Mas [id number] - Sna Implanted:Qty : 1 on 05/04/2023 by Dangelo Hopper MD at [facility] Screw N/A: Spine Cervical Posterior [employer] SOFAMOR [employer]ANEK 03/10/2027 [id number] / NA / [id number] Screw Infinity Oc M6 [id number] - Sna Implanted:Qty : 13 on 05/04/2023 by Dangelo Hopper MD at [facility] Screw N/A: Spine Cervical Posterior [employer]ANEK [id number] / NA / NA Description:Load # [id number] sterilization date - April 28, 2023 Screw Infinity 4.5x22mm Mas [id number] - Sna Implanted:Qty : 5 on 05/04/2023 by Dangelo Hopper MD at [facility] Screw N/A: Spine Cervical Posterior [employer]ANEK [id number] / NA / NA Description:load # [id number] sterilization date - April 28, 2023 Screw Infinity 4.0x18mm Mas [id number] - Sna Implanted:Qty : 2 on 05/04/2023 by Dangelo Hopper MD at [facility] Screw N/A: Spine Cervical Posterior [employer] [id number] / NA / NA Description:load # [id number] 706 sterilization date - 2022 Screw Infinity 3.5x20mm Mas [id number] - Sna Implanted:Qty : 2 on 05/04/2023 by Dangelo Hopper MD at [facility] Screw N/A: Spine Cervical Posterior [employer]K [id number] / NA / NA Description:load # [id number] 706 sterilization date - 2022 Screw Transition 5.5x30mm Mas [id number] - Sna Implanted:Qty : 1 on 05/04/2023 by Dangelo Hopper MD at [facility] Screw N/A: Spine Cervical Posterior [employer] SOFAMOR DANEK 12/26/2029 [id number] / NA / [id number] Screw Transition 5.5x25mm Mas [id number] - Sna Implanted:Qty : 1 on 05/04/2023 by Dangelo Hopper MD at [facility] Screw N/A: Spine Cervical Posterior [employer]OR DANEK 10/22/2029 [id number] / NA / [id number] Screw Cdh 5.0x30mm 5.5/6.0 Mas Cc [id number] - Sn/A Implanted:Qty : 4 on 09/10/2023 by Dangelo Hopper MD at [facility] Screw N/A: Back [employer] SOFAMOR [employer]ANEK [id number] / N/A / N/A Description:Load # [id number] Sterile Date: 09-08-2023 Screw Cdh 4.5x30mm 5.5/6.0 Mas Cc [id number] - Sn/A Implanted:Qty : 2 on 09/10/2023 by Dangelo Hopper MD at [facility] Screw N/A: Back [employer]ANEK [id number] / N/A / N/A Description:Load # [id number] Sterile Date: 09-08-2023 Screw Cdh 4.5x40mm 5.5/6.0 Mas Cc [id number] - Sn/A Implanted:Qty : 3 on 09/10/2023 by Dangelo Hopper MD at [facility] N/A: Back [employer]ANEK [id number] / N/A / N/A Description:Load # [id number] Sterile Date: 09-08-2023 Screw Cdh 5.0x40mm 5.5/6.0 Mas Cc [id number] - Sn/A Implanted:Qty : 5 on 09/10/2023 by Dangelo Hopper MD at [facility] N/A: Back [employer]K [id number] / N/A / N/A Description:Load # [id number] Sterile Date: 09-08-2023 Screw Cdh 5.5x40mm 5.5/6.0 Mas Cc [id number] - Sn/A Implanted:Qty : 2 on 09/10/2023 by Dangelo Hopper MD at [facility] N/A: Back [employer] SOFAM[employer] DANEK [id number] / N/A / N/A Description:Load # [id number] Sterile Date: 09-07-2023 Screw Cdh 5.5x50mm 5.5/6.0 Mas Cc [id number] - Sn/A Implanted:Qty : 2 on 09/10/2023 by Dangelo Hopper MD at [facility] N/A: Back [employer]FAM[employer]ANEK [id number] / N/A / N/A Description:Load # [id number] Sterile Date: 09-07-2023 Screw Cdh 6.5x45mm 5.5/6.0 Mas Cc [id number] - Sn/A Implanted:Qty : 4 on 09/10/2023 by Dangelo Hopper MD at [facility] N/A: Back [employer] SOFAM[employer]ANEK [id number] / N/A / N/A Description:Load # [id number] Sterile Date: 09-07-2023 Screw Cdh 5.5x45mm 5.5/6.0 Mas Cc [id number] - Sn/A Implanted:Qty : 2 on 09/10/2023 by Dangelo Hopper MD at [facility] N/A: Back [employer] SOFAM[employer]ANEK [id number] / N/A / N/A Description:Load # [id number] Sterile Date: 09-07-2023 Screw Cdh 7.5x50mm 5.5/6.0 Mas Cc [id number] - Sn/A Implanted:Qty : 1 on 09/10/2023 by Dangelo Hopper MD at [facility] N/A: Back [employer] SOFAMOR [employer]ANEK [id number] / N/A / N/A Description:Load # [id number] Sterile Date: 09-07-2023 Screw Cdh 7.5x55mm 5.5/6.0 Mas Cc [id number] - Sn/A Implanted:Qty : 2 on 09/10/2023 by Dangelo Hopper MD at [facility] N/A: Back [employer] SOFAMOR [employer]ANEK [id number] / N/A / N/A Description:Load # [id number] Sterile Date: 09-07-2023 Screw Cdh 7.5x45mm 5.5/6.0 Mas Cc [id number] - Sn/A Implanted:Qty : 1 on 09/10/2023 by Dangelo Hopper MD at [facility] N/A: Back [employer] SOFAMOR [employer]ANEK [id number] / N/A / N/A Description:Load # [id number] Sterile Date: 09-07-2023 Screw Solera 5.5/6.0 Breakoff [id number] - Sn/A Implanted:Qty : 8 on 09/10/2023 by Dangelo Hopper MD at [facility] N/A: Spine Lumbar [employer] SOFAMOR DANEK [id number] / N/A / N/A Description:Load # [id number] Sterile Date:09-07-2023 Screw Implanted:Qty : 2 on 09/10/2023 by Dangelo Hopper MD at [facility] N/A: Spine Lumbar [employer] INC [id number] / / Description:1X ADD JM Screw Ti Std Break Off Sol[address] St [id number] - [id number] Implanted:Qty : 1 on 09/17/2023 by Dangelo Ho[facility] MD at [facility] Screw N/A: Back [employer] SOFAMOR DANEK [id number] / / Description:LOAD# [id number] STERILIZED: 09/13/2023 Screw Solera 5.5/6.0 Breakoff 0372893 - [id number] Implanted:Qty : 30 on 09/17/2023 by Dangelo Hopper MD at [facility] Screw N/A: Back [employer] SOFAMOR DANEK [id number] / / Description:LOAD# [id number] STERILIZED: 09/13/2023 Insurance RX MEDIMPACT Member Subscriber Plan / Payer (Ef fective 2015-Present) Name:Ivett Stephens Relation to Subscriber:Self Name:Ivett Stephens Payer ID:Not on file Group ID:[id number] Type:RX Medicare Part D Address: [address] Advance Directives For more information, please contact: [phone] * Full Code (Latest Code Status on File) Date Activated Date Inactivated Comments 09/10/2023 6:27 PM 09/25/2023 5:47 PM * Full Code Date Activated Date Inactivated Comments 05/29/2023 8:54 PM 06/05/2023 4:08 PM * Full Code Date Activated Date Inactivated Comments 05/04/2023 7:20 PM 05/09/2023 3:51 PM Care Teams Yard Supervisor Cotton Gin Relationship Specialty Start Date End Date Jay Licea MD [address] [place] [address] PCP - General Family Practice 02/19/23
--- OUTSIDE RECORDS SUMMARY | 2025-04-06 01:02 | XMS_ITS | Clinical Summary ---
Author Organization [facility] Address [address] [place] [address] Care Team Providers Care Funnel Coater Name Role Phone Jay Licea MD Primary [...] 2 (two) times a day 1 Active stkzinyw96-lrnt-K mfolate-algal 27 mg iron-1.13 mg-581.92 mg capsule [...] (08/27/2022): Added automatically from request for surgery [id number] HTN (hypertension) 07/03/2020 Asthma 07/03/2020 Iron deficiency anemia 07/03/2020 Seizures 07/03/2020 Primary osteoarthritis of left hip 01/10/2020 Overview (01/10/2020): Added automatically from request for surgery [id number] Knee pain 06/14/2013 Nasal polyp 02/08/2013 MRSA [...] on file Legal Sex Female 3:05 AM RIDING DOUBLE Gender Identity Not on file Sexual Orientation [...] history exists Medical Devices Implanted Type Area Hospital Technician Device Identifier Shelf Expiration Date Model / Serial / Lot M[employer]h [employer] [id number] 54mm Limit 4 Hole Hip F Hemisphere Offset Shell Acetabular - S0 - [id number] Implanted:Qty : 1 on 07/05/2020 by Juwan Simms MD at [facility] Other - see comments Left: Hip [employer] [id number] 12/30/2029 [id number] / 0 / [id number] M[employer]h [employer] Inc [id number] Taperloc Xr Series 142mm Press Fit Full Profile Hip 123d 11 Stem - S0 - [id number] Implanted:Qty : 1 on 07/05/2020 by Juwan Simms MD at [facility] Other - see comments Left: Hip [employer] [id number] 05/14/2029 [id number] / 0 / [id number] Liner Hip G7 Longevity 5mm 32mm D - [id number] Implanted:Qty : 1 on 07/05/2020 by Juwan Simms MD at [facility] Left: Hip [employer] [id number] 12/29/2024 [id number] / / [id number] M[employer]h [employer] [id number] G7 36mm Type 1 Modular Hip Acetabular +3mm Offset Head Femoral - [id number] Implanted:Qty : 1 on 07/05/2020 by Juwan Simms MD at [facility] Left: Hip [employer] 03/27/2030 [id number] / / [id number] Insurance [facility] [address] [facility] Advance Directives For more information, please contact: [phone] * Full Code (Latest Code Status on File) Date Activated Date Inactivated Comments 07/05/2020 11:51 AM 07/06/2020 3:59 PM Care Teams Funnel Coater Relationship Specialty Start Date End Date Jay Licea MD PCP - General Family Practice 01/09/21
--- OUTSIDE RECORDS SUMMARY | 2025-04-06 01:02 | XMS_ITS | Encounter Summary ---
Author Organization [facility] Address [address] [place] [address] Care Team Providers Care Light Oil Operator Name Role Phone Jay Licea MD Primary Care Provider Reason for Visit * Reason Onset Date Comments BACK SURGERY 09/15/2023 SPOKE WITH AKILAH / DR. MENDOZA OFFICE Encounter Details Date Type Department Care Team (Late st Contact Info) Description 09/15/2023 Telephone [facility] Admitting [address] [place] [address] Dangelo Hopper MD [address] [facility] [address] [place] [address] BACK SURGERY (SPOKE WITH AKILAH [...] PM CDT Legal Sex Female 6:06 AM ELECTROENCEPHALOGRAPHIC TECHNOLOGIST Gender Identity Female 04/15/2024 3:45 PM CDT Sexual Orientation Not on file documented as of this encounter Plan of Treatment Upcoming Encounters Date Type Department Care Team (Late st Contact Info) Description 10/15/2025 1:00 PM ELECTROENCEPHALOGRAPHIC TECHNOLOGIST Office Visit [facility] [address] [facility] [address] [facility] [address] [place] [address] Dangelo Hopper MD [address] [facility] [address] [place] [address] documented as of this encounter Visit Diagnoses Not on filedocumented in this encounter Care Teams Light Oil Operator Relationship Specialty Start Date End Date Jay Licea MD [address] [place] [address] PCP - General Family Practice 02/19/23 documented as of this encounter
--- OUTSIDE RECORDS SUMMARY | 2025-04-06 01:02 | XMS_ITS | Continuity of Care Document ---
Author Organization [facility] Address [address] [facility] [address] [place] [address] Phone Care Team Providers Care Senior Consulting Manager Name Role Phone Rosanne Regalado Unavailable Unavailable [...] Diagnoses Date Provider Providers Copied on Encounter [facility], [address] [place] [address] [address], [place], [place], [address], [place] tel:[phone] [facility] No Information Oct-0 5-201 0 Regalado Rosanne. [address] , [address], [place], [place], [facility], [place]. tel:[phone] [facility], [address] [place] [address] [address], [place], [place], [address], [place] tel:[phone] [facility] No Information Sep-3 0-201 0 Regalado Rosanne. [address] , [address], [place], [place], [facility], [place]. tel:[phone] [facility], [address], [place], [place], [address], [place] tel:[phone] [facility] No Information Jul-2 9-201 0 Regalado Rosanne. [address] , [address], [place], [facility], [place]. tel:[phone] [facility], [address] [place] [address] [address], [place], [place], [address], [place] tel:[phone] [facility] No Information 5-201 0 Regalado Rosanne. [address] , [address], [place], [facility], [place]. tel:[phone] [facility], [address] [place] [address] [address], [place], [place], [address], [place] tel:[phone] [facility] No Information 4-201 0 Regalado Rosanne. [address] , [address], [place], [facility], [place]. tel:[phone] [facility], [address], [place], [place], [address], [place] tel:[phone] [facility] [address] [place] No Information Chalino-2 3-201 0 Dotson OD John. [address] [facility] , [address], [place], [address], [place]. tel:[phone] [facility], [address], [place], [place], [address], [place] tel:[phone] [facility] No Information Apr-1 0-200 9 Dotson OD John. [address] , [address], [place], [address], [place]. tel:[phone] [facility], [address], [place], [place], [address], [place] tel:[phone] [facility] No Information Apr-0 7-200 9 [facility] . [address] [facility], [address], [place], [place], [address], [place]. tel:[phone] Referring Provider: John Dotson OD A, [address] [place], [place] [address]ate Center [address], [place], [address]. tel:[phone] g Provider: Sarah Saucedo, [address] [place], [address]. tel:[phone] [facility], [address], [place], [place], [address], [place] tel:[phone] [facility] No Information Mar-1 3-200 9 Dotson OD John. [facility] , [address], [place], [address], [place]. tel:[phone] [facility], [address], [place], [place], [address], [place] tel:[phone] [facility] [place] No Information Oct-1 0-200 8 Dotson OD John. [address] [facility] , [address], [place], [address], [place]. tel:[phone] Referring Provider: John Dotson OD A, [facility] [address], [place], [address]. tel:[phone] [facility], [address] [place] [address] [address], [place], [place], [address], [place] tel:[phone] [facility] [place] No Information 3-200 8 [facility] . [address] [facility], [address], [place], [place], [address], [place]. tel:[phone] Referring Provider: John Dotson OD A, [address] [place], [place] [address]ate [address], [place], [address]. tel:[phone] garrido Provider: Yong Perez, [address] [place], [place] [address], [place], [address]. tel:[phone] Office/outpat ient Visit, [facility], [address] [place] [address] [address], [place], [place], [address], [place] tel:[phone] [facility] [place] No Information 9-200 8 Dotson OD John. [address] [place] [address] , [address], [place], [address], [place]. tel:[phone] [facility], [address], [place], [place], [address], [place] tel:[phone] [facility] [place] No Information 6-200 7 Dotson OD John. [address] [place] [address] Center , [address], [place], [address], [place]. tel:[phone] Referring Provider: John Dotson OD A, [address] [place], [place] [address]ate [place] [address], [place], [address]. tel:[phone] [facility], [address] [place] [address] [address], [place], [place], [address], [place] tel:[phone] [facility] [place] No Information 3-200 7 Dotson OD John. [address] [place] [address] , [address], [place], [address], [place]. tel:[phone] Referring Provider: John Graves, [address] [place] [address] [address], [place], [place], [facility]. tel:[phone] [facility], [address] [place] [address] [address], [place], [place], [address], [place] tel:[phone] [facility] No Information 0-200 7 [facility] . [address] [facility], [address], [place], [place], [address], [place]. tel:[phone] Referring Provider: John Graves, [address] [place] [address] [address], [place], [place], [facility]. tel:[phone] g Provider: Yong Perez, [address] [place] [address], [place], [facility]. tel:[phone] [facility], [address] [place] [address] [address], [place], [place], [address], [place] tel:[phone] [facility] No Information 4200 7 Dotson OD John. [address] [place] [address] , [address], [place], [place], [facility], [place]. tel:[phone] Family History Family Member Type Diagnosis Age [...]
[2025-04-06 07:00] VITALS: BP 152/88; PULSE 85; RESP 14; TEMP 37.5; O2SAT 100
[2025-04-06] MEDS: LACTATED RINGERS 1,000 ML 30 ML IV CONT (07:00)
[2025-04-06] MEDS: LIDOCAINE 2% LOCAL INJ 20 ML VIAL 10 ML INFILTRATE (07:13)
--- NOTE | 2025-04-06 07:13 | WPDHPUPDATE1 ---
History and Physical Update Update Date/Time: 04/06/25 07:13 History and Physical has been reviewed, including an updated exam of the patient. There are NO changes in the patient's condition. Risks, benefits, and alternatives have been discussed and questions answered. Patient agrees to proceed with procedure.
--- NOTE | 2025-04-06 07:17 | P.PNAN_ITS ---
Anes - Initial Pre Proc Eval Procedure: Operation Date: 04/06/25 07:30 Proposed Procedures p Arthrodesis of Interphalangeal Joint of Left Hallux, - Sha Roy Jr., DPM s Removal of Hardware Left Foot - Sha Roy Jr., DPM Date/Time: 04/06/25 07:17 Surgeon: Sha Roy Jr., DPM Pre Op Diagnosis: hallux interphalangeus left foot Patient Data Age: 75 Gender: F Height: 1.63 m Weight: 76 kg Allergies Allergy/AdvReac Type Severity Reaction Status Date / Time hydrochlorothiazide Allergy Unknown Nausea Verified 03/20/25 09:20 Penicillins Allergy Unknown Tongue Verified 03/20/25 09:20 swelling Home Medications ?Medication ?Instructions ?Recorded ?Confirmed ?Type multivitamin 1 cap PO DAILY 04/08/20 03/20/25 History prednisone 5 mg tablet 10 mg PO BID PRN RA exacerbation 08/07/22 03/20/25 History acetaminophen 325 mg capsule 325 mg PO Q6H PRN RA exacerbation 07/05/23 03/20/25 History (Tylenol) bimatoprost 0.01 % eye drops 1 drp EACH EYE QPM 07/05/23 03/20/25 History (Lumigan) tramadol 50 mg tablet 50 mg PO Q6H PRN pain 11/08/23 03/20/25 History gabapentin 100 mg capsule 100 mg PO QID #360 caps 03/31/24 03/20/25 Rx fluticasone 250 mcg-salmeterol 50 1 inh inhalation BID 07/24/24 03/20/25 History mcg/dose blistr powdr for inhalation (Wixela Inhub) phenytoin sodium extended 100 mg 100 mg PO TID #270 caps 07/25/24 03/20/25 Rx capsule cetirizine 10 mg capsule (Zyrtec) 10 mg PO DAILY PRN allergy symptoms 01/22/25 03/20/25 History leflunomide 20 mg tablet 20 mg PO Q48H 01/22/25 03/20/25 History metoprolol tartrate 50 mg tablet 50 mg PO BID 01/22/25 03/20/25 History ferrous sulfate 325 mg (65 mg 325 mg PO DAILY #90 tabs 01/31/25 03/20/25 Rx iron) tablet omeprazole 40 mg capsule,delayed See Rx Instructions .Route 03/05/25 03/20/25 Rx release .COMPLEX #90 caps vitamin B12 500 mcg-folic acid 400 1 tablet PO DAILY 03/20/25 03/20/25 History mcg tablet Patient hx anesthesia problems: none Family hx anesthesia problems: none Results Review: All pre-operative results and documents have been reviewed as part of the pre- operative evaluation. [facility] Past Medical History Medical History Elevated troponin Elevated troponin Surgical follow-up care Psoriasis Atrial fibrillation Rheumatoid arthritis Asthma, cough variant Glaucoma both eyes, open angle Seizure disorder Essential (primary) hypertension GERD without esophagitis Left carpal tunnel syndrome Lumbar disc disease with radiculopathy Hyperlipidemia Neuropathy Pulmonary nodule less than 6 cm determined by computed tomography of lung Surgical History Surgical History H/O spinal fusion (~04/2023) C2-T2 posterior instrumented spinal fusion; C3 posterior column osteotomy; C5 &C6 Laminectomy 05/04/23 [facility] History of ankle surgery History of left hip replacement (~06/2020) History of bilateral knee replacement S/P cervical spinal fusion (~04/2023) Family History Family History Father Hypertension, Onset Age: 76 Family history of heart disease in male family member before age 55, Onset Age: 75 Patient's father is , Onset Age: 76 Mother Hypertension, Onset Age: 82 Family history of renal failure, Onset Age: 82 Family history of heart disease in male family member before age 55, Onset Age: 82 Patient's mother is , Onset Age: 82 Sibling Hypertension Asthma Family history of diabetes mellitus in first degree relative Family history of heart disease in male family member before age 55 Grandparent Hypertension Cerebrovascular accident Family history of heart disease in male family member before age 55 Diabetes mellitus Other Olecranon bursitis of right elbow Social History Social History Social History: Caffeine- soda occasionally Currently lives with . Surrogate Decision Maker: Patrice Stephens, spouse. Code Status: Full Code. Smoking status: Never smoker Second hand tobacco smoke exposure: No Alcohol intake: never Substance use: current Substance use type: painkillers Other substance usage details: RA flair up takes Tramadol very rarely Lack of Transportation: No Lack of Food: Never True Current Housing: I Have Housing Concerned About Future Housing: No Difficulty Paying Gas/Electric Bills: No Difficulty Paying for Meds: No Currently Unemployed: No Education: High School Diploma/GED Difficulty w/ Childcare or Family Care: No Living arrangements: with family Additional living arrangements comments: Occupation/Education: retired Gender identity (if verbalized by the patient): Female Sexual Orientation (if Verbalized by the Patient): Straight or Heterosexual Spiritual care concerns: No Agree to blood products: Yes Anes - Eval Final PreProcedure Day of Procedure 04/06/25 07:17 Patient weight: overweight Lungs: normal air movement Airway: Mallampati scale class II and special considerations (Hx of C spine fusion/back surgery, sl limited extension. ) poor extension Neurological: alert and oriented Last oral intake: >/= 8 hours ASA classification: III Emergent: no Anesthetic plan: proceed Anesthesia type and monitoring: general GIVS and standard monitoring Results Review: All pre-operative results and documents have been reviewed as part of the pre- operative evaluation. Seizure disorder, but only 2 times, approx 30 years ago (pt had seizure when she came off dilantin at one time). On b maribeth. Informed Consent: The patient's anesthetic plan and its attendant risks and benefits were discussed with the patient/family/POA. Questions were solicited and answers provided to the satisfaction of the patient/family/POA.
[2025-04-06] MEDS: ceFAZolin 2 GM/D5W 50 ML 2 GM/50 ML BAG IVPB (07:38)
--- NOTE | 2025-04-06 08:58 | P.OP_ITS ---
Procedure Note - Detailed Date of Procedure 04/06/25 Pre-op Diagnosis 1. 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 Painful deep orthopedic hardware left foot Post-op Diagnosis Same Procedure Performed 1. Interphalangeal joint arthrodesis left hallux 2. Hardware removal left foot Surgeon Sha Roy Jr., DPM Anesthesia MAC and Local Indications Painful hallux interphalangeus deformity to the left toe joint Findings Plate adhered to dorsal cortex of left hallux and first metatarsal unable to remove Description of Procedure Under mild sedation, the patient was brought to the operating room, placed on the operating table in the supine position. A pneumatic ankle tourniquet was placed about the patient's ankle. Following IV sedation, I performed a proximal first metatarsal Painter Block with 20cc's of a one to one mix of 0.5% Marcaine plain and 2% Lidocaine plain. The foot was then scrubbed, prepped, and draped in the usual aseptic manner. An Esmarch bandage was then used to examine the patient's foot and pneumatic ankle tourniquet was then inflated. Surgery began in the following manner. Attention was directed to the hallux where a 3cm incision was made just pr oximal to the nail fold extending to the central shoft of the first metatarsal. I reflected the extensor tendon and capsule from the proximal phalanx and distal first metarsal exposing the Medline plate and screw system. The locking screws and headed screws were removed and passed from the operative site. The plate was adhered and unable to be removed without fracture to the dorsal cortex of the corresponding bones. Multiple attempts were made without success so I decided to leave the plate in place. Next, the head of the proximal phalanx and base of the distal phalanx was resected with an sagittal saw blade. I used a 2.0mm drill bit to fenestrate the joint to promote fusion. Next, I drove a guide wire from the base of the distal phalanx exiting the hallux and then retrograded the wire into the proximal phalanx, Next, I drove an Arthrex Headless 3.5mm cannulated screw from the distal phalanx to the proximal phalanx with excellent compression noted Fluoroscopy was used to make sure that the digit and implant were both appropriately positioned within the canals of the proximal and distal phalanges. I repaired the extensor tendon with 3-0 Vicryl. I reapproximated the subcutaneous structures with 4.0 Vicryl and the skin with 4-0 Monocryl in running subcuticular suture fashion technique. Upon completion of the procedure, the incision was dressed with Adaptic, 4 x 4's, Kerlix, and Coban. The pneumatic ankle tourniquet was then deflated and a prompt hyperemic response noted to all digits of the foot. A surgical shoe was then applied. The patient did very well with the procedure and the anesthesia. The patient was transferred to the recovery room with vital signs stable and vascular status intact to all toes of the affected foot. Following a period of postoperative monitoring, the patient will be discharged home on the following written and oral postoperative instructions: 1. Keep the dressing clean, dry, and intact. Use a cast protector bag with showers. 2. The patient should use a CAM boot for ambulation postoperatively. 3. The patient should be on bedrest with bathroom privileges and elevate the affected foot when at rest. 4. The patient to contact Dr. Roy for all postop care and if any problems arise. 5. Take Tramadol 50mg every 4 to 6 hours as needed for pain. Implants Arthrex 3.5mm Cannulated Headless Screw Estimated Blood Loss 1 Drains No Packing No Pathology None sent Complications No immediate complications Condition Stable Disposition Same day
[2025-04-06 09:10] VITALS: BP 135/66; PULSE 61; RESP 16; O2SAT 99
[2025-04-06 09:40] VITALS: BP 136/61; PULSE 58; RESP 16
== END 2025-04-06 10:09 | disposition home or self-care (01) ==
PROVIDERS: PCP Family Medicine; Visit Provider Podiatrist Foot & Ankle Surgery
PROC: (CPT 28750; principal; 2025-04-06 07:30)
PROC: (CPT 28755; 2025-04-06 07:30)
DX: M20.32 Hallux varus (acquired), left foot (principal); M19.072 Primary osteoarthritis, left ankle and foot; I10 Essential (primary) hypertension; K21.9 Gastro-esophageal reflux disease without esophagitis; J45.909 Unspecified asthma, uncomplicated; G40.909 Epilepsy, unspecified, not intractable, without status epilepticus; I49.3 Ventricular premature depolarization; L40.9 Psoriasis, unspecified; I48.91 Unspecified atrial fibrillation; G56.02 Carpal tunnel syndrome, left upper limb; M51.16 Intervertebral disc disorders with radiculopathy, lumbar region; Z79.891 Long term (current) use of opiate analgesic; Z79.52 Long term (current) use of systemic steroids; Z79.51 Long term (current) use of inhaled steroids; Z98.890 Other specified postprocedural states; Z98.1 Arthrodesis status; Z82.49 Family history of ischemic heart disease and other diseases of the circulatory system
CPT/HCPCS: 28755; 20680; 99199; J0690; J1100; J2003; J2405; J2704; J3010; J7120

== ENCOUNTER 2025-08-06 14:11 | Outpatient (CLI) | payer MEDICARE, SELFPAY ==
--- OUTSIDE RECORDS SUMMARY | 2010-09-02 11:45 | XMS_ITS | Continuity of Care Document ---
Author Organization [employer] [facility] Address [address] [facility] [address] [place] [phone] Phone Care Team Providers Care Chain Maker Loom Control Name Role Phone Rosanne Regalado Unavailable Unavailable Procedures Procedure Date Post-op Follow-up Visit Post-op Follow-up Visit Exchange Lens Prosthesis Post-op Follow-up Visit Remove Cataract, Insert Lens Eye Exam & Treatment Refraction No Charge Glasses Check Vision Svcs Frames Purchases Frames Deluxe Progressive Lens, Polycarb Eye Exam & Treatment Refraction Visual Field Examination(s) Progressive Lens, Plastic Frames Deluxe Miscellaneous Vision Service - Supplies Tax - Medical Office/outpatient Visit, Est Visual Field Examination(s) Optic Nerve Topography Optic Nerve Topography Progressive Lens, Plastic Vision Svcs Frames Purchases Miscellaneous Vision Service - Supplies Tax - Medical Eye Exam & Treatment Advance Directives Directive Yes / No Effective Date File Name No Information Encounters Encounter Description Practice Location Reason(s) For Visit Diagnoses Date Provider Providers Copied on Encounter [employer] [facility], [address] [place] [address] [address], [place], [place], [id number], [place] tel:[phone] [facility] No Information Oct-0 5-201 0 Regalado Rosanne. [address] , [address], [place], [place], [facility], [place]. tel:[phone] Located within [facility], [address] [place] [address] [address], [place], [place], [id number], [place] tel:[phone] [facility] No Information Sep-3 0-201 0 Regalado Rosanne. [address] , [address], [place], [place], [facility], [place]. tel:[phone] Located within [facility], [address], [place], [place], [id number], [place] tel:[phone] [facility] No Information Jul-2 9-201 0 Regalado Rosanne. [address] , [address], [place], [facility], [place]. tel:[phone] Located within [facility], [address] [place] [address] [address], [place], [place], [id number], [place] tel:[phone] [facility] No Information 5-201 0 Regalado Rosanne. [address] , [address], [place], [facility], [place]. tel:[phone] Located within [facility], [address] [place] [address] [address], [place], [place], [id number], [place] tel:[phone] [facility] No Information 4-201 0 Regalado Rosanne. [address] , [address], [place], [facility], [place]. tel:[phone] [facility], [address], [place], [place], [address], [place] tel:[phone] [facility] No Information Chalino-2 3-201 0 Dotson OD John. [address] [facility] , [address], [place], [address], [place]. tel:[phone] [facility], [address], [place], [place], [address], [place] tel:[phone] [facility] No Information Apr-1 0-200 9 Dotson OD John. [address] , [address], [place], [address], [place]. tel:[phone] [facility], [address], [place], [place], [id number], [place] tel:[phone] [facility] No Information Apr-0 7-200 9 [facility] [employer] . [address] [facility], [address], [place], [place], [id number], [place]. tel:[phone] Referring Provider: John Dotson OD A, [address] [place], [place] [address]ate Center [address], [place], [address]. tel:[phone] g Provider: Sarah Saucedo, [address] [place], [address]. tel:[phone] [facility], [address], [place], [place], [address], [place] tel:[phone] [facility] No Information Mar-1 3-200 9 Dotson OD John. [facility] , [address], [place], [address], [place]. tel:[phone] [facility], [address], [place], [place], [id number], [place] tel:[phone] [facility] No Information Oct-1 0-200 8 Dotson OD John. [address] [facility] , [address], [place], [address], [place]. tel:[phone] Referring Provider: John Dotson OD A, [facility] [address], [place], [address]. tel:[phone] [facility], [address] [place] [address] [address], [place], [place], [id number], [place] tel:[phone] [facility] No Information 3-200 8 [facility] [employer] . [address] [facility], [address], [place], [place], [id number], [place]. tel:[phone] Referring Provider: John Dotson OD A, [address] [place], [place] [address]ate [address], [place], [address]. tel:[phone] garrido Provider: Yong Perez, [address] [place], [place] [address]ate [facility], [place], [address]. tel:[phone] Office/outpat ient Visit, Est Located within [facility], [address] [place] [address] [address], [place], [place], [id number], [place] tel:[phone] [facility] No Information 9-200 8 Dotson OD John. [address] [place] [address] , [address], [place], [address], [place]. tel:[phone] [facility], [address], [place], [place], [address], [place] tel:[phone] [facility] No Information 6-200 7 Dotson OD John. [address] [place] [address] Center , [address], [place], [address], [place]. tel:[phone] Referring Provider: John Dotson OD A, [address] [place], [place] [address]ate [address], [place], [address]. tel:[phone] [facility], [address] [place] [address] [address], [place], [place], [id number], [place] tel:[phone] [facility] No Information 3-200 7 Dotson OD John. [address] [place] [address] , [address], [place], [address], [place]. tel:[phone] Referring Provider: John Graves, [address] [place] [address] [address], [place], [facility]. tel:[phone] [facility], [address] [place] [address] [address], [place], [place], [id number], [place] tel:[phone] [facility] No Information 0-200 7 [facility] [employer] . [address] [facility], [address], [place], [place], [id number], [place]. tel:[phone] Referring Provider: John Graves, [address] [place] [address] [address], [place], [facility]. tel:[phone] g Provider: Yong Perez, [address] [place] [address], [place], [facility]. tel:[phone] [facility], [address] [place] [address] [address], [place], [place], [id number], [place] tel:[phone] [facility] No Information 4200 7 Dotson OD John. [address] [place] [address] , [address], [place], [facility], [place]. tel:[phone] Family History Family Member Type Diagnosis Age At Onset No Information Payers Payer name Insurance type Covered libertarian ID Authoriza tion(s) No Information Social History Type Description Quantity Date Captured Comments Sex Female Smoking Status No Information Chief Complaint And Reason For Visit No Information Reason For Referral Reason For Referral No Information History Of Present Illness Encounter Date Complaint History Of Prese nt Illness No Information Functional Status Date Functional Assessmen t No Information Instructions Date Instruction Additional Infor mation No Information Assessments Type Assessment Date No Information Patient Care Teams Name Effective Dates (start - stop) Status Members No Information
--- OUTSIDE RECORDS SUMMARY | 2025-08-06 14:15 | XMS_ITS | Clinical Summary ---
Author Organization [facility] Address [address] [place] [address] Care Team Providers Care Visual Lead Name Role Phone Jay Licea MD Primary [...] 2 (two) times a day 1 Active [id number] mfolate-algal 27 mg iron-1.13 mg-581.92 mg capsule [...] (08/27/2022): Added automatically from request for surgery [id number] HTN (hypertension) 07/03/2020 Asthma 07/03/2020 Iron deficiency anemia 07/03/2020 Seizures 07/03/2020 Primary osteoarthritis of left hip 01/10/2020 Overview (01/10/2020): Added automatically from request for surgery [id number] Knee pain 06/14/2013 Nasal polyp 02/08/2013 MRSA (methicillin resistant Staphylococcus aureu s) 03/23/2012 Overview (08/26/2022): Sinuses Sinuses Allergic rhinitis 11/20/2011 Chronic sinusitis 11/20/2011 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/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 06/06/2009 Encounters Date Type Department Care Team Description 07/23/2025 6:48 AM CDT - 07/23/2025 11:59 PM CDT Hospital Encounter [address] [address] Other 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 Gender Identity Not on file Sexual Orientation [...] 11:03 AM CDT Height 165.1 cm (5' 5) 09/06/2024 11:03 AM CDT Body Mass Index [...] Assessment 09/04/2023 09/04/2022, 05/19/20 21 Covid-19 Vaccine (2024-2 6 season) 2025 03/31/2022, 09/19/2021, 09/19/2021, Additional history exists Influenza Vaccine (#1) 2025 , 08/16/2020, 10/14/2016, Additional history exists Medical Devices Implanted Type Area Adult Educator Device Identifier Shelf Expiration Date Model / Serial / Lot [employer] [id number] 54mm Limit 4 Hole Hip F Hemisphere Offset Shell Acetabular - S0 - [id number] Implanted:Qty : 1 on 07/05/2020 by Juwan Simms MD at [facility] Other - see comments Left: Hip [employer] [id number] 12/30/2029 [id number] / 0 / [id number] [employer] [id number] Taperloc Xr Series 142mm Press Fit Full Profile Hip 123d 11 Stem - S0 - [id number] Implanted:Qty : 1 on 07/05/2020 by Juwan Simms MD at [facility] Other - see comments Left: Hip [employer] [id number] 05/14/2029 [id number] / 0 / [id number] Liner Hip G7 Longevity 5mm 32mm D - [id number] Implanted:Qty : 1 on 07/05/2020 by Juwan Simms MD at [facility] Left: Hip [employer] [id number] 12/29/2024 [id number] / / [id number] [employer] 650-0662 G7 36mm Type 1 Modular Hip Acetabular +3mm Offset Head Femoral - [id number] Implanted:Qty : 1 on 07/05/2020 by Juwan Simms MD at [facility] Left: Hip [employer] 03/27/2030 [id number] / / [id number] Procedures Procedure Name Priority Date/Time Associated Diagnosis Comments US RUQ Schedule Routine, Read Routine (OP Routine) 07/23/2025 7:39 AM CDT 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 COMPARISON: None FINDINGS: PANCREAS: Visualized portions of the pancreas are within normal limits. Portions of the pancreatic body and tail are obscured due to bowel gas. LIVER: The liver appears normal in echotexture and echogenicity. No focal lesion identified. The main portal vein is patent with antegrade flow. The liver measures 18.5 cm in greatest diameter. GALLBLADDER: The gallbladder contains small shadowing gallstones. There is no evidence of gallbladder wall thickening or pericholecystic fluid. BILIARY: There is no intrahepatic or extrahepatic biliary ductal dilatation. Common bile duct measures 4 mm in diameter. RIGHT KIDNEY: Normal size. Normal echogenicity. No solid mass or cyst. No hydronephrosis. Measures 10.4 cm in length. OTHER: None IMPRESSION: Cholelithiasis. THIS IS AN ELECTRONICALLY VERIFIED FINAL REPORT 07/31/2025 9:52 PM - Electronically signed by Mike Clarke M.D. KT: NIRANJAN Report ID: [id number] Reading Location: [id number] Procedure Note Mike Clarke MD - 07/31/2025 EXAM DESCRIPTION: US RUQ REASON FOR STUDY: Abnormally elevated liver enzymes TECHNIQUE: Ultrasound of the right upper quadrant of the abdomen wasperformed with grayscale and color doppler. COMPARISON: None FINDINGS: PANCREAS: Visualized portions of the pancreas are withinnormal limits. Portions of the pancreatic body and tail are obscured due to bowel gas. LIVER: The liver appears normal in echotexture and echogenicity. Nofocal lesion identified. The main portal vein is patent with antegrade flow.The liver measures 18.5 cm in greatest diameter. GALLBLADDER: The gallbladder contains small shadowing gallstones. Thereis no evidence of gallbladder wall thickening or pericholecystic fluid. BILIARY: There is no intrahepatic or extrahepatic biliary ductaldilatation. Common bile duct measures 4 mm in diameter. RIGHT KIDNEY: Normal size. Normal echogenicity. No solid mass or cyst.No hydronephrosis. Measures 10.4 cm in length. OTHER: None IMPRESSION: Cholelithiasis. THIS IS AN ELECTRONICALLY VERIFIED FINAL REPORT 07/31/2025 9:52 PM - Electronically signed by Mike Clarke M.D. KT: NIRANJAN Report ID: [id number] Reading Location: [id number] Reina Busch NP IMG US PROCEDURES Final R esult from Last 3 Months Insurance [facility] [employer]ET[employer] MEDICARE GOLD [facility] [employer] MEDICARE GOLD Advance Directives For more information, please contact: [phone] * Full Code (Latest Code Status on File) Date Activated Date Inactivated Comments 07/05/2020 11:51 AM 07/06/2020 3:59 PM Care Teams Visual Lead Relationship Specialty Start Date End Date Jay Licea MD PCP - General Family Practice 01/09/21
--- OUTSIDE RECORDS SUMMARY | 2025-08-06 14:15 | XMS_ITS | Clinical Summary ---
Author Organization [facility] Address [address] [place] [address] Care Team Providers Care Back Digger Operator Name Role Phone Niyah Barth MD Primary Care Provider [phone] Source Comments [facility],non-owned Affiliates and Associated Physician Practices is amultiple site organization consisting of ambulatory clinics and hospital sitesin [place], [place], [place] and [place]. This disclosure is being madepursuant to the Care Everywhere program and may not contain all information available regarding this patient. 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 Gender Identity Not on file Sexual Orientation Not on file Last Filed Vital Signs Vital Sign Reading Time Taken Comments Blood Pressure - - Pulse - - Temperature - - Respiratory Rate - - Oxygen Saturation - - Inhaled Oxygen Concentration - - Weight 88.5 kg (195 lb) 03/29/2013 2:28 PM CDT Height 170.2 cm (5' 7) 03/29/2013 2:28 PM CDT Body Mass Index [...] yrs (1 - 1-dose 75+ series) 2024 DEPRESSION SCREENING 11/29/2024 COVID-19 VACCINE ( - 2023-2 5 season) 2025 INFLUENZA VACCINE (#1) 2025 HEPATITIS B VACCINE Aged Out No [...] patient's age to complete this topic Insurance [employer] MED[employer]ARE E[employer] MED[employer]ARE Care Teams Back Digger Operator Relationship Specialty Start Date End Date Niyah Barth MD [address] [place] [address] [address] [place] [phone] PCP - General 11/12/11
--- OUTSIDE RECORDS SUMMARY | 2025-08-06 14:15 | XMS_ITS | Encounter Summary ---
Author Organization [facility] Address [address] [place] [address] Care Team Providers Care Microsoft Net Developer Name Role Phone Niyah Barth MD Primary Care Provider Encounter Details Date Type Department Care Team (Late st Contact Info) Description 08/31/2023 Lab Requisition [facility]erm[facility] Lab [address] [facility] [place] [phone] Иван Umanzor MD [address] [place] [address] Social History Tobacco Use Types Packs/Day Years Used Date Smoking Tobacco: Never Smokeless Tobacco: Never Alcohol Use Standard Drinks/Week Comments No 0 (1 standard drink = 0.6 oz pur e alcohol) Comments Unknown Sex and Gender Information Value Date Recorded Sex Assigned at Not on file 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 Gender Identity Not on file Sexual Orientation Not on file documented as of this encounter Plan of Treatment Not on file documented as of this encounter Procedures Procedure Name Priority Date/Time Associated Diagnosis Comments DERMATOPATHOLOGY Routine 08/30/2023 12:0 0 AM CDT documented in this encounter Results * DERMATOPATHOLOGY (08/30/2023 12:00 AM CDT) Case Report Dermatopathology Report Case: [id number] Authorizing Provider: Иван Umanzor MD Collected: 08/30/2023 12:00 AM Ordering Location: [facility] Received: 08/31/2023 04:22 PM Pathologist: Elba Cano MD Specimens: A) - Skin, right post shoulder superior B) - Skin, right post shoulder inferior 9:08 AM [facility] DERMATOPATHOLOGY [facility]ORATORY Final Diagnosis Specimen A. SKIN, right post shoulder superior: SPONGIOTIC DERMATITIS WITH EOSINOPHILS (L30.8) EPIDERMAL NECROSIS SUGGESTIVE OF EXCORIATION (L98.499) (see microscopic description and comment) Specimen B. SKIN, right post shoulder inferior: SPONGIOTIC DERMATITIS WITH EOSINOPHILS (L30.8) EPIDERMAL NECROSIS SUGGESTIVE OF EXCORIATION (L98.499) (see microscopic description and comment) 9:08 AM CDT DERMATOPATHOLOGY LABORATORY at 0908 CDT Clinical History A-B: R/O Drug Eruption vs [...] measuring 6x5x1 mm. Jar 0. 9:08 AM T DERMATOPATHOLOGY LABORATORY Microscopic Description Specimen A. SKIN, [...] characteristic determined by the Dermatopathology Laboratory at [facility], directed by Dr. Maxim Cano. These tests need not be, and therefore are not, approved by the [place] Food and Drug Administration. The tests are used for clinical purposes. Billing Codes Specimen Charges Stain Charges 96450 54536 1 1 3 9:08 AM CDT DERMATOPATHOLOGY LABORATORY Embedded Images 3 9:08 AM CDT DERMATOPATHOLOGY LABORATORY Pathology/Cytology TISSUE SPECIMEN FROM SKIN / Unknown 08/30/2023 08/31/2023 4:22 PM CDT Miscellaneous samples (specimen) TISSUE SPECIMEN FROM SKIN / Unknown 08/30/2023 08/31/2023 4:22 PM CDT Иван Umanzor MD LAB - PATHOLOGY/CYTOLOGY ORDERAB LES Final Result DERMATOPATHOLOGY LABORATORY [facility] - Department of Dermatology [address] [phone] documented in this encounter Visit Diagnoses Not on filedocumented in this encounter Care Teams Microsoft Net Developer Relationship Specialty Start Date End Date Niyah Barth MD [address] [place] [phone] PCP - General 11/12/11 documented as of this encounter
--- OUTSIDE RECORDS SUMMARY | 2025-08-06 14:15 | XMS_ITS | Encounter Summary ---
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
--- OUTSIDE RECORDS SUMMARY | 2025-08-06 14:15 | XMS_ITS | Encounter Summary ---
Author Organization [facility] Address [address] [place] [address] Care Team Providers Care Chipper Operator Name Role Phone Jay Licea MD Primary Care Provider Reason for Visit * Reason Onset Date Comments BACK SURGERY 09/15/2023 SPOKE WITH AKILAH / DR. 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 Gender Identity Female 04/15/2024 3:45 PM CDT Sexual Orientation Not on file documented as of this encounter Plan of Treatment Upcoming Encounters Date Type Department Care Team (Late st Contact Info) Description 10/15/2025 1:00 PM COP BREAKER Office Visit [facility] [address] [facility] [address] [facility] [address] [place] [address] Dangelo Hopper MD [address] [place] [address] documented as of this encounter Visit Diagnoses Not on filedocumented in this encounter Care Teams Chipper Operator Relationship Specialty Start Date End Date Jay Licea MD [address] [place] [phone] PCP - General Family Practice 02/19/23 documented as of this encounter
--- OUTSIDE RECORDS SUMMARY | 2025-08-06 14:15 | XMS_ITS | Clinical Summary ---
Author Organization [facility] Address [address] [place] [address] Phone Care Team Providers Care Law Clerk Name Role Phone Jay Licea MD Primary [...] Tablet 3 Active naloxone (NARCAN) 4 mg/spray Urania, Non-Aerosol EMERGENCY USE ONLY: Administer 1 spray [...] (05/05/2023): Added automatically from request for surgery [id number] HTN (hypertension) 07/03/2020 Iron deficiency anemia 07/03/2020 MRSA (methicillin resistant Staphylococcus aureu s) 03/23/2012 Overview (03/29/2012): Sinuses Chronic sinusitis 11/20/2011 Resolved Problems Problem Noted Date Diagnosed Date Resolved Date Wound dehiscence 06/03/2023 09/09/2023 Acquired spondylolisthesis o f cervical vertebra 05/03/2023 05/09/2023 Family History Medical History Relation Name Comments [...] PM CDT Legal Sex Female 6:06 AM 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 Gender Identity Female 04/15/2024 3:45 PM CDT Sexual Orientation Not on file Last Filed Vital Signs Vital Sign Reading Time Taken Comments Blood Pressure 109/68 10/16/2024 1:03 PM 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 Pulse 74 10/16/2024 1:03 PM 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 Temperature 37 C (98.6 F) 10/16/2024 1:03 PM 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 Respiratory Rate 16 10/16/2024 1:03 PM 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 Oxygen Saturation 93% 10/16/2024 1:03 PM 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 Inhaled Oxygen Concentration - - Weight 74.8 kg (165 lb) 10/16/2024 1:03 PM 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 Height 162.6 cm (5' 4) 10/16/2024 1:03 PM 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 Body Mass Index 28.32 10/16/2024 1:03 PM 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 Plan of Treatment Upcoming Encounters Date Type Department Care Team (Late st Contact Info) Description 10/15/2025 1:00 PM 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 Office Visit [facility] Neuro[facility] [address] [facility] [address] [facility] [address] [place] [address] Dangelo Hopper MD [address] [facility] [address] [place] [address] Health Maintenance Due Date Last Done Comments DTAP/TDAP/TD VACCINES (1 - Tdap) 1968 PNEUMOCOCCAL VACCINE 50+ YEARS (1 of 2 - PCV) 03/04/19 68 ZOSTER VACCINE (1 of 2) 1999 OSTEOPOROSIS SCREENING 2014 RSV VACCINE (60+ or ) (1 - 1-dose 75+ series) 2024 INFLUENZA VACCINE (#1) 2025 10/14/2016 Medical Devices Implanted Type Area [employer] Device Identifier Shelf Expiration Date Model / Serial / Lot Sealant Duraseal 5ml - [id number] Implanted:Qty : 1 on 09/17/2023 by Dangelo Hopper MD at [facility] Biological N/A: Back [employer] KAY 08/01/2024 / / [id number] Spacer Catalyft Pl 7mm Xpndble Strt [id number] - Sna Implanted:Qty : 1 on 09/10/2023 by Dangelo Hopper MD at [facility] Cage N/A: Spine Lumbar [employer] SOFAMOR DANEK 08/18/2031 [id number] / NA / [id number] Duragen + 1x1in Dp-1010 - [id number] Implanted:Qty : 1 on 09/17/2023 by Dangelo Hopper MD at [facility] Graft N/A: Back [employer] 12/29/2025 [id number] / / [id number] Description:CHECKED BY NORMA 10 .23.23 Hemostatic Surgiflo 8ml W/ Thrombin 2994 - Sna Implanted:Qty : 1 on 05/04/2023 by Dangelo Hopper MD at [facility] Hemostatic N/A: Spine Cervical Posterior J&J- [employer] 05/28/2024 2994 / NA / [id number] Hemostatic Surgiflo 8ml W/ Thrombin 2994 - Sna Implanted:Qty : 1 on 05/04/2023 by Dangelo Hopper MD at [facility] Hemostatic N/A: Spine Cervical Posterior J[employer]J- [employer] 12/29/2023 2994 / NA / [id number] Hemostatic Surgiflo 8ml W/ Thrombin 2994 - Sna Implanted:Qty : 1 on 05/04/2023 by Dangelo Hopper MD at [facility] Hemostatic N/A: Spine Cervical Posterior J[employer] 12/29/2023 2994 / NA / [id number] Hemostatic Surgiflo 8ml W/ Thrombin 2994 - [id number] Implanted:Qty : 1 on 09/10/2023 by Dangelo Hopper MD at [facility] Hemostatic N/A: Back J[employer] 12/29/2024 2994 / / [id number] Hemostatic Surgiflo 8ml W/ Thrombin 2994 - [id number] Implanted:Qty : 1 on 09/10/2023 by Dangelo Hopper MD at [facility] Hemostatic N/A: Back J[employer] 12/29/2024 2994 / / [id number] Hemostatic Surgiflo 8ml W/ Thrombin 2994 - [id number] Implanted:Qty : 1 on 09/17/2023 by Dangelo Hopper MD at [facility] Hemostatic N/A: Back J&J[employer] 12/29/2024 2994 / / [id number] Hemostatic Surgiflo 8ml W/ Thrombin 2994 - [id number] Implanted:Qty : 1 on 09/17/2023 by Dangelo Hopper MD at [facility] Hemostatic N/A: Back J&J- [employer] 12/29/2024 2994 / / [id number] Connector Implanted:Qty : 1 on 09/17/2023 by Dangelo Hopper MD at [facility] Other N/A: Back [employer] [id number] / / Description:1X ADD JM Dewayne Offset Implanted:Qty : 2 on 09/17/2023 by Dangelo Hopper MD at [facility] Other N/A: Back [employer] [id number] / / Description:1X ADD JM Mcmurray Offset Implanted:Qty : 3 on 09/17/2023 by Dangelo Hopper MD at [facility] Other N/A: Back [employer] [id number] / / Description:1X ADD JM Rodrigo Std 3.8b095jb [id number] - Sna Implanted:Qty : 1 on 05/04/2023 by Dangelo Hopper MD at [facility] Rodrigo N/A: Spine Cervical Posterior [employer] [id number] / NA / NA Description:load # [id number] sterilization date - April 28, 2023 Rodrigo Cdh Chromaloy+ 5.0x530lh Strt [id number] - Sn/A Implanted:Qty : 2 on 09/10/2023 by Dangelo Hopper MD at [facility] Rodrigo N/A: Spine Lumbar [employer] [id number] / N/A / N/A Description:Load # [id number] Sterile Date:09-07-2023 Rodrigo Std 3.3j633co 1357464 - [id number] Implanted:Qty : 2 on 09/17/2023 by Dangelo Hopper MD at [facility] Rodrigo N/A: Back [employer] [id number] / / Description:LOAD# [id number] STERILIZED: 09/15/2023 Rodrigo Implanted:Qty : 2 on 09/17/2023 by Dangelo Hopper MD at [facility] Rodrigo N/A: Back [employer] [id number] / / [id number] Description:1X ADD JM Screw Transition 5.5x25mm Mas [id number] - Sna Implanted:Qty : 1 on 05/04/2023 by Dangelo Hopper MD at [facility] Screw N/A: Spine Cervical Posterior [employer] 12/08/2026 [id number] / NA / [id number] Screw Transition 5.5x25mm Mas [id number] - Sna Implanted:Qty : 1 on 05/04/2023 by Dangelo Hopper MD at [facility] Screw N/A: Spine Cervical Posterior [employer] 03/10/2027 [id number] / NA / [id number] Screw Infinity Oc M6 [id number] - Sna Implanted:Qty : 13 on 05/04/2023 by Dangelo Hopper MD at [facility] Screw N/A: Spine Cervical Posterior [employer] [id number] / NA / NA Description:Load # [id number] sterilization date - April 28, 2023 Screw Infinity 4.5x22mm Mas [id number] - Sna Implanted:Qty : 5 on 05/04/2023 by Dangelo Hopper MD at [facility] Screw N/A: Spine Cervical Posterior [employer] [id number] / NA / NA Description:load # [id number] 605 sterilization date - April 28, 2023 Screw Infinity 4.0x18mm Mas [id number] - Sna Implanted:Qty : 2 on 05/04/2023 by Dangelo Hopper MD at [facility] Screw N/A: Spine Cervical Posterior [employer] [id number] / NA / NA Description:load # [id number] 706 sterilization date - 2022 Screw Infinity 3.5x20mm Mas [id number] - Sna Implanted:Qty : 2 on 05/04/2023 by Dangelo Hopper MD at [facility] Screw N/A: Spine Cervical Posterior [employer] [id number] / NA / NA Description:load # [id number] sterilization date - 2022 Screw Transition 5.5x30mm Mas [id number] - Sna Implanted:Qty : 1 on 05/04/2023 by Dangelo Hopper MD at [facility] Screw N/A: Spine Cervical Posterior [employer] 12/26/2029 [id number] / NA / [id number] Screw Transition 5.5x25mm Mas [id number] - Sna Implanted:Qty : 1 on 05/04/2023 by Dangelo Hopper MD at [facility] Screw N/A: Spine Cervical Posterior [employer] 10/22/2029 [id number] / NA / [id number] Screw Cdh 5.0x30mm 5.5/6.0 Mas Cc [id number] - Sn/A Implanted:Qty : 4 on 09/10/2023 by Dangelo Hopper MD at [facility] Screw N/A: Back [employer] [id number] / N/A / N/A Description:Load # [id number] Sterile Date: 09-08-2023 Screw Cdh 4.5x30mm 5.5/6.0 Mas Cc [id number] - Sn/A Implanted:Qty : 2 on 09/10/2023 by Dangelo Hopper MD at [facility] Screw N/A: Back [employer] [id number] / N/A / N/A Description:Load # [id number] Sterile Date: 09-08-2023 Screw Cdh 4.5x40mm 5.5/6.0 Mas Cc [id number] - Sn/A Implanted:Qty : 3 on 09/10/2023 by Dangelo Hopper MD at [facility] N/A: Back [employer] [id number] / N/A / N/A Description:Load # [id number] Sterile Date: 09-08-2023 Screw Cdh 5.0x40mm 5.5/6.0 Mas Cc [id number] - Sn/A Implanted:Qty : 5 on 09/10/2023 by Dangelo Hopper MD at [facility] N/A: Back [employer] [id number] / N/A / N/A Description:Load # [id number] Sterile Date: 09-08-2023 Screw Cdh 5.5x40mm 5.5/6.0 Mas Cc [id number] - Sn/A Implanted:Qty : 2 on 09/10/2023 by Dangelo Hopper MD at [facility] N/A: Back [employer] [id number] / N/A / N/A Description:Load # [id number] Sterile Date: 09-07-2023 Screw Cdh 5.5x50mm 5.5/6.0 Mas Cc [id number] - Sn/A Implanted:Qty : 2 on 09/10/2023 by Dangelo Hopper MD at [facility] N/A: Back [employer] [id number] / N/A / N/A Description:Load # [id number] Sterile Date: 09-07-2023 Screw Cdh 6.5x45mm 5.5/6.0 Mas Cc [id number] - Sn/A Implanted:Qty : 4 on 09/10/2023 by Dangelo Hopper MD at [facility] N/A: Back [employer] [id number] / N/A / N/A Description:Load # [id number] Sterile Date: 09-07-2023 Screw Cdh 5.5x45mm 5.5/6.0 Mas Cc [id number] - Sn/A Implanted:Qty : 2 on 09/10/2023 by Dangelo Hopper MD at [facility] Screw N/A: Back [employer] [id number] / N/A / N/A Description:Load # [id number] Sterile Date: 09-07-2023 Screw Cdh 7.5x50mm 5.5/6.0 Mas Cc [id number] - Sn/A Implanted:Qty : 1 on 09/10/2023 by Dangelo Hopper MD at [facility] Screw N/A: Back [employer] [id number] / N/A / N/A Description:Load # [id number] Sterile Date: 09-07-2023 Screw Cdh 7.5x55mm 5.5/6.0 Mas Cc [id number] - Sn/A Implanted:Qty : 2 on 09/10/2023 by Dangelo Hopper MD at [facility] Screw N/A: Back [employer] [id number] / N/A / N/A Description:Load # [id number] Sterile Date: 09-07-2023 Screw Cdh 7.5x45mm 5.5/6.0 Mas Cc [id number] - Sn/A Implanted:Qty : 1 on 09/10/2023 by Dangelo Hopper MD at [facility] Screw N/A: Back [employer] [id number] / N/A / N/A Description:Load # [id number] Sterile Date: 09-07-2023 Screw Solera 5.5/6.0 Breakoff [id number] - Sn/A Implanted:Qty : 8 on 09/10/2023 by Dangelo Hopper MD at [facility] Screw N/A: Spine Lumbar [employer] [id number] / N/A / N/A Description:Load # [id number] Sterile Date:09-07-2023 Screw Implanted:Qty : 2 on 09/10/2023 by Dangelo Hopper MD at [facility] Screw N/A: Spine Lumbar [employer] [id number] / / Description:1X ADD JM Screw Ti Std Break Off Solera St [id number] - [id number] Implanted:Qty : 1 on 09/17/2023 by Dangelo Hopper MD at [facility] Screw N/A: Back [employer] [id number] / / Description:LOAD# [id number] STERILIZED: 09/13/2023 Screw Solera 5.5/6.0 Breakoff [id number] - [id number] Implanted:Qty : 30 on 09/17/2023 by Dangelo Hopper MD at [facility] Screw N/A: Back [employer] [id number] / / Description:LOAD# [id number] STERILIZED: 09/13/2023 Insurance [employer] O MCR RX MEDIMPACT Member Subscriber Plan / Payer (Ef fective 2015-Present) Name:Ivett Stephens Relation to Subscriber:Self Name:Ivett Stephens Payer ID:Not on file Group ID:[id number] Type:RX Medicare Part D Address: [address] Advance Directives For more information, please contact: [phone] * Full Code (Latest Code Status on File) Date Activated Date Inactivated Comments 09/10/2023 6:27 PM 09/25/2023 5:47 PM * Full Code Date Activated Date Inactivated Comments 05/29/2023 8:54 PM 06/05/2023 4:08 PM * Full Code Date Activated Date Inactivated Comments 05/04/2023 7:20 PM 05/09/2023 3:51 PM Care Teams Law Clerk Relationship Specialty Start Date End Date Jay Licea MD [address] [place] [address] PCP - General Family Practice 02/19/23
[2025-08-06 18:33] LABS: Hematocrit 39.0 % (37.0-47.0); Hemoglobin 12.8 g/dL (12.0-15.0); Immature Granulocyte Percent A 0.5 % (0-0.5); Lymphocytes Absolute Auto 1.88 K/mm3 (0.9-3.2); Mean Corpuscular HGB Conc 32.8 g/dl (32-36); Mean Corpuscular Hemoglobin 32.9 pg (26-34); Mean Corpuscular Volume 100.3 fl (80-100); Nucleated Red Blood Cells Absolute Auto 0.000 K/mm3 (0.0-0.012); Nucleated Red Blood Cells Perc 0.0 % (0.0-0.2); Platelet Count Result 276 k/mm3 (150-375); Red Blood Count 3.89 M/mm3 (4.2-5.4); White Blood Count 8.9 K/mm3 (4.5-10.0)
[2025-08-06 18:46] LABS: Alanine Aminotransferase 21 U/L (6-35); Albumin Level 4.2 g/dL (3.5-5.1); Alkaline Phosphatase 240 U/L (38-126); Anion Gap 8 mmol/L (4-12); Aspartate Amino Transferase 59 U/L (14-36); Bilirubin,Total 0.3 mg/dL (0.2-1.3); Blood Urea Nitrogen 25 mg/dL (7-17); Calcium 9.7 mg/dL (8.4-10.2); Carbon Dioxide 27 mmol/L (22-30); Chloride 105 mmol/L (98-107); Cholesterol 188 mg/dL (0-200); Estimated Glomerular Filt Rate 43; Glucose 100 mg/dL (65-110); HDL Direct 44 mg/dL; Potassium 5.4 mmol/L (3.4-5.0); Sodium 140 mmol/L (137-145); Total Protein 8.8 g/dL (6.3-8.2); Triglycerides 149 mg/dL (<150)
[2025-08-06 19:57] LABS: Ferritin 26.30 ng/mL (11.1-264)
== END 2025-08-06 14:12 | disposition home or self-care (01) ==
LOC: ANHGOSHLAB 14:11
PROVIDERS: PCP Nurse Practitioner Family; Visit Provider Nurse Practitioner Family
DX: D64.9 Anemia, unspecified (principal); I10 Essential (primary) hypertension; R74.8 Abnormal levels of other serum enzymes; E78.5 Hyperlipidemia, unspecified
CPT/HCPCS: 36415; 80053; 80061; 82728; 85025; 86803